=== PATIENT | male | born 1950 | race Caucasian/White ===

== ENCOUNTER 2017-08-01 14:46 | Inpatient (IN) ==
--- NOTE | 2017-08-01 15:02 | Emergency Department Note ---
Disposition Clinical Impression: Acute exacerbation of chronic obstructive airways disease Disposition: Admitted As Inpatient Condition: Good Referrals: Rosie Hilton CNP [Primary Care Provider] - Forms: ED Satisfaction Letter Time of Disposition: 17:24 SOB HPI - General Chief Complaint: ED Shortness of Breath/Dyspnea Stated Complaint: DWIGHT Time Seen by Provider: 08/01/17 14:59 Source: patient Limitations: no limitations Nursing Notes Reviewed: Yes Vital Signs Reviewed: Yes - History of Present Illness Mr. Angulo, a 66-year-old male, presents from home for evaluation of abrupt worsening of dyspnea at 13:00 today. Patient was diagnosed 07/24 with acute exacerbation of COPD, managed as an outpatient with a course of Levaquin and prednisone. He has been compliant and has finished these medications. He does have a history of chronic underlying COPD with home albuterol; no need for home supplemental oxygen. PMH: Pulmonary cancer 40 years ago with left lower lobectomy, colon cancer in the last 5 years with colectomy, COPD, hyperlipidemia, hypertension, CAD status post ACS, pacemaker in place Habits: Current every day smoker ROS: Positive: Dyspnea Negative: Fever, chills, nausea, vomiting, change in chronic cough, chest pains , palpitations, thoracic back pains, abdominal pains, vertigo, weakness - Related Data Home Medications Medication Instructions Recorded Confirmed Albuterol Neb [AccuNeb] 1.25 mg IH Q4H PRN 12/20/15 08/01/17 Metoprolol [Lopressor] 25 mg PO BID 12/20/15 08/01/17 [place]-3/Dha/Epa/Fish Oil [Fish Oil 1 each PO DAILY 12/20/15 08/01/17 1,000 mg Softgel] Pravastatin Sodium [Pravachol] 40 mg PO HS 12/20/15 08/01/17 Acetaminophen [Tylenol] 500 mg PO Q6HR PRN 08/01/17 08/01/17 Allergies Allergy/AdvReac Type Severity Reaction Status Date / Time No Known Allergies Allergy Verified 12/20/15 15:45 All systems ED: reviewed and negative except as stated. Review of Systems: As Per HPI Past Medical History - Past Medical History Medical history: Reports: cancer, COPD, hyperlipidemia, hypertension, myocardial infarction Psychiatric history: Reports: anxiety, depression - Social History Smoking Status: Current every day smoker Smokeless Tobacco Status: No Alcohol use: Reports: rarely Drug use: Reports: none Physical Exam Vital Signs Reviewed General: Patient is alert, oriented, and in respiratory distress-he is using substantial accessory muscles for breathing despite the use of submental oxygen ; pulse ox is 95% HEENT: No facial asymmetry. Head is normocephalic and atraumatic. Oral mucosa moist. Trachea midline. Cardiovascular: Heart regular rate and rhythm without clicks, rubs, gallops, or murmurs. No JVD. PMI nondisplaced. Respiratory: Symmetric chest rise with good respiratory effort. Bilateral breath sounds are clear without wheezing, crackles, or rhonchi. Abdomen: Bowel sounds present normoactive. Abdomen is soft, nondistended, and nontender. No organomegaly noted. Musculoskeletal: Spontaneously moving all extremities. Neuro: GCS 15. Skin: Warm, dry, intact Psych: Patient's affect is appropriate for situation. - General Limitations: no limitations General appearance: alert Course Course Narrative: Patient presents 8 days after diagnosis of acute exacerbation of COPD with appropriate outpatient therapy of prednisone and levofloxacin. He has an acute worsening this afternoon for which he presents. Will provide triple dose of DuoNeb's. If substantial improvement is not noted with nebulizer, will strongly consider BiPAP as patient's work of breathing is very high on intake. Patient did well for triple dose of DuoNeb's. His work of breathing is essentially improved. Will hold on BiPAP at this time. I discussed the patient with the admitting hospitalist, Dr. Ernst, who agreed to accept the patient for continued evaluation and management for acute exacerbation of COPD. Vital Signs Temperature 97.7 F 08/01/17 14:50 Pulse Rate 131 08/01/17 14:50 Respiratory Rate 30 08/01/17 14:50 Blood Pressure 168/92 08/01/17 14:50 O2 Sat by Pulse Oximetry 94 08/01/17 14:50 Temperature 97.7 F 08/01/17 14:50 Pulse Rate 83 08/01/17 16:26 Respiratory Rate 24 08/01/17 16:26 Blood Pressure 136/86 08/01/17 16:26 O2 Sat by Pulse Oximetry 95 08/01/17 16:26 Oxygen Delivery Oxygen Delivery Nasal Cannula Shortness of Breath/Dyspnea - Medical Records Medical records reviewed: Yes I reviewed the patient's medical records. - Lab Data Result diagrams: 08/01/17 15:08/01/17 15:01 Lab Results 08/01/17 08/01/17 08/01/17 Range/Units 15: 15: 15:01 WBC 10.1 (4.3-11.1) K/mcL RBC 5.43 (4.19-5.50) M/mcL Hgb 16.5 (12.9-16.9) g/dL Hct 46.8 (37.5-50.1) % MCV 86.2 (83.0-100.0) fL MCH 30.4 (28.0-33.3) pg MCHC 35.3 (31.6-35.5) g/dL RDW 12.5 (11.5-14.5) % Plt Count 119 L (140-400) K/mcL MPV 11.5 (9.4-12.4) fL Immature Gran % 0.4 (0-4) % Seg Neutrophils % 79.6 % Lymphocytes % 7.7 % Monocytes % 10.1 % Eosinophils % 1.6 % Basophils % 0.6 % Neutrophils # 8.1 (1.6-8.9) K/mcL Lymphocytes # 0.8 (0.6-4.6) K/mcL Monocytes # 1.0 (0.0-1.3) K/mcL Eosinophils # 0.2 (0.0-0.6) K/mcL Basophils # 0.1 (0.0-0.2) K/mcL Immature Plt Fraction 14.1 H (1.1-6.1) % PT (9.4-12.1) Seconds INR APTT (26.0-36.0) Seconds Sodium 132 L (136-145) mEq/L Potassium 4.7 H (3.5-4.5) mEq/L Chloride 98 (98-109) mEq/L Carbon Dioxide 21 (19-29) mEq/L BUN 7 L (8-26) mg/dL Creatinine 0.91 (0.72-1.25) mg/dL Est GFR ( Amer) > 60 (> 60) Est GFR (Non-Af Amer) > 60 (> 60) BUN/Creatinine Ratio 8 (6-26) Glucose 102 H (70-99) mg/dL Calculated Osmolality 272 L (280-300) Lactic Acid 2.4 H (0.5-2.2) mmol/L Calcium 9.1 (8.6-10.8) mg/dL Troponin I (0-0.03) ng/mL B-Natriuretic Peptide (0-100) pg/mL 08/01/17 08/01/17 08/01/17 Range/Units 15:01 15:01 15:01 WBC (4.3-11.1) K/mcL RBC (4.19-5.50) M/mcL Hgb (12.9-16.9) g/dL Hct (37.5-50.1) % MCV (83.0-100.0) fL MCH (28.0-33.3) pg MCHC (31.6-35.5) g/dL RDW (11.5-14.5) % Plt Count (140-400) K/mcL MPV (9.4-12.4) fL Immature Gran % (0-4) % Seg Neutrophils % % Lymphocytes % % Monocytes % % Eosinophils % % Basophils % % Neutrophils # (1.6-8.9) K/mcL Lymphocytes # (0.6-4.6) K/mcL Monocytes # (0.0-1.3) K/mcL Eosinophils # (0.0-0.6) K/mcL Basophils # (0.0-0.2) K/mcL Immature Plt Fraction (1.1-6.1) % PT 13.0 H (9.4-12.1) Seconds INR 1.2 APTT 27.3 (26.0-36.0) Seconds Sodium (136-145) mEq/L Potassium (3.5-4.5) mEq/L Chloride (98-109) mEq/L Carbon Dioxide (19-29) mEq/L BUN (8-26) mg/dL Creatinine (0.72-1.25) mg/dL Est GFR ( Amer) (> 60) Est GFR (Non-Af Amer) (> 60) BUN/Creatinine Ratio (6-26) Glucose (70-99) mg/dL Calculated Osmolality (280-300) Lactic Acid (0.5-2.2) mmol/L Calcium (8.6-10.8) mg/dL Troponin I 0.01 (0-0.03) ng/mL B-Natriuretic Peptide 243 H (0-100) pg/mL - EKG Data EKG attestation: Yes I reviewed and interpreted this EKG. EKG results narrative: EKG gated CT July 2017 at 15:03 interpreted as ventricularly paced. Nonspecific ST-T changes. Compared to previous dated 12/21/2015 also ventricularly paced. Attestation Statement - Attestation Attestation: I examined this patient and my medical decision-making was reviewed with the Resident Physician. I agree with the documented findings, disposition and treatment plan as described except to the extent set forth below. [id number] time provided Patient arrives complaining of dyspnea. He has a history of COPD. He is non- oxygen dependent. Active smoker. He is tachypneic and dyspneic at the time of my exam
[2017-08-01] MEDS ORDERED: Ipratropium/Albuterol Neb 3 ML IH ONE (15:08)
[2017-08-01] MEDS ORDERED: methylPREDNISolone 125 MG/2 ML VIAL IVP ONE (15:08)
[2017-08-01 15:09] LABS: Basophils # 0.1 K/mcL (0.0-0.2); Basophils % 0.6 %; Eosinophils # 0.2 K/mcL (0.0-0.6); Eosinophils % 1.6 %; Hematocrit 46.8 % (37.5-50.1); Hemoglobin 16.5 g/dL (12.9-16.9); Immature Granulocytes % 0.4 % (0-4); Immature Platelets 14.1 % (1.1-6.1); Lymphocytes # 0.8 K/mcL (0.6-4.6); Lymphocytes % 7.7 %; Mean Corpuscular HGB Conc 35.3 g/dL (31.6-35.5); Mean Corpuscular Hemoglobin 30.4 pg (28.0-33.3); Mean Corpuscular Volume 86.2 fL (83.0-100.0); Mean Platelet Volume 11.5 fL (9.4-12.4); Monocytes % 10.1 %; Neutrophils # 8.1 K/mcL (1.6-8.9); Platelet Count 119 K/mcL (140-400); Red Blood Count 5.43 M/mcL (4.19-5.50); Red Cell Distribution Width 12.5 % (11.5-14.5); Segmented Neutrophils % 79.6 %
[2017-08-01 15:14] LABS: INR 1.2
[2017-08-01 15:17] LABS: Activated Partial Thrombo Time 27.3 Seconds (26.0-36.0)
[2017-08-01 15:20] LABS: BUN/Creatinine Ratio 8 (6-26); Blood Urea Nitrogen 7 mg/dL (8-26); Calcium 9.1 mg/dL (8.6-10.8); Carbon Dioxide 21 mEq/L (19-29); Chloride 98 mEq/L (98-109); Glucose 102 mg/dL (70-99); Osmolality,Calculated 272 (280-300); Sodium 132 mEq/L (136-145); eGFR For African Americans > 60 (> 60); eGFR For Non-African Americans > 60 (> 60)
[2017-08-01 15:21] LABS: Potassium 4.7 mEq/L (3.5-4.5)
[2017-08-01] MEDS ORDERED: Acetaminophen 325 MG TABLET PO ONE (17:53)
[2017-08-01] MEDS ORDERED: 0.9 % Sodium Chloride 1,000 ML IVC ONE (20:13)
[2017-08-01] MEDS ORDERED: Naloxone 0.4 MG/ML INJ IVP PRN (20:49)
[2017-08-01] MEDS ORDERED: *HR* Morphine 2 MG/ML SYRINGE IVP PRN (20:49)
--- NOTE | 2017-08-01 20:49 | Internal Med History&Physical ---
Date of Encounter: 08/01/17 Time of Encounter: 22:46 Assessment and Plan (1) Pneumonia Current visit: Yes Status: Acute COntinue Levaquin IV Send sputum culture Urine Strep/legionella Ag Continue duonebs q4h Continue O2 supplementation Continue prednisone po Follow blood and sputum culture Qualifiers: Pneumonia type: due to unspecified organism Laterality: left Lung location: unspecified part of lung Qualified Code(s): J18.9 - Pneumonia, unspecified organism (2) Lactic acid acidosis Current visit: Yes Status: Acute Presented with lactate of 2.3, recheck 3.8 GIven 1L bolus Maintenance fluid at 75cc/hr LActic acidosis possibly due to hypoxia and work of breathing on arrival, as well as multiple nebs Continue to monitor (3) Hypoxia Current visit: Yes Status: Acute Patient denies being on home O2 Tachycardic, tachypneic and hypoxic on arrival Possibly secondary to pneumonia Obtain D-dimer, may require CTA if positive Continue O2 by nasal cannula (4) Acute exacerbation of chronic obstructive airways disease Current visit: Yes Status: Acute As in pneumonia (5) CAD (coronary artery disease) Current visit: Yes Status: Chronic Continue home meds No chest pain Qualifiers: Coronary Disease-Associated Artery/Lesion type: nikolai artery [place] vs. transplanted heart: nikolai heart Associated angina: without angina Qualified Code(s): I25.10 - Atherosclerotic heart disease of nikolai coronary artery without angina pectoris (6) History of cancer Current visit: Yes Status: Chronic Follow with [facility] as outpatient (7) Tobacco use Current visit: Yes Status: Chronic Cessation counselling done, declined need for NRT (8) Hypertension Current visit: Yes Status: Chronic Controlled, continue home meds Qualifiers: Hypertension type: essential hypertension Qualified Code(s): I10 - Essential (primary) hypertension (9) Hyponatremia Current visit: Yes Status: Chronic Chronic, stable. Internal Medicine - H&P: HPI Chief complaint: Shortness of breath Admitted From: Home Plans for Post Hospital Care: Home History of present illness: Mr. Angulo is a 66 year old male Seen and evaluated at bedside Presented with shortness of breath, which started suddenly during this morning, he states he has been having progressively worsening shortness of breath not responding to his home inhalers. He had been to his PCP and treated for COPDE last week with prednisone and po antibiotics with no significant improvement. He denies fever or chills, cough is productive of clear sputum which is his baseline, he has no sick contacts and has not had a recent travel. He denies chest pain, leg swelling, abdominal or symptoms, no neurologis symptoms. He has a PMH of Lung CA s/p Left lobectomy several years ago, CAD, HTN, Anxiety/ Dperession, HLD He continues to smoke ROS is not contibutory At presentation to the ER< he was tachypneic, hypoxic and tachycardic, with HR being 108-131. He reported some improvement after 3 rounds of nebs and solumedrol. Work up revealed possible early pneumonia on CXR, lactic acidosis, Chronic hyponatremia, Chem and CBC otherwise at baseline Past Med Surg Social Fam HX - Past Medical History Medical history: cancer, COPD, hyperlipidemia, hypertension, myocardial infarction Psychiatric history: anxiety, depression - Social History Smoking Status: Current every day smoker Packs per day: 0.5 Smokeless Tobacco Status: No Alcohol use: rarely Drug use: none - Family History Mother Hx Family Cancer: Yes (Breast) Internal Medicine - H&P: Meds Albuterol Neb [AccuNeb] 1.25 mg IH Q4H PRN 12/20/15 [History] Metoprolol [Lopressor] 25 mg PO BID 12/20/15 [History] [place]-3/Dha/Epa/Fish Oil [Fish Oil 1,000 mg Softgel] 1 each PO DAILY 12/20/15 [ History] Pravastatin Sodium [Pravachol] 40 mg PO HS 12/20/15 [History] Acetaminophen [Tylenol] 500 mg PO Q6HR PRN 08/01/17 [History] 3 Allergy/AdvReac Type Severity Reaction Status Date / Time No Known Allergies Allergy Verified 12/20/15 15:45 All Systems PM: A 10-system review of systems was performed and is negative for pertinent findings except as documented above in the HPI. - Constitutional Constitutional: no chills, no fever(s), no night sweats - EENT Eyes: no change in vision, no discharge, no pain, no photophobia Ears: no ear discharge, no ear pain, no tinnitus Nose, mouth and throat: no dysphagia, no nasal discharge, no neck pain, no sore throat - Cardiovascular Cardiovascular ROS IM: as per HPI - Respiratory Respiratory: as per HPI - Gastrointestinal Gastrointestinal: as per HPI - Musculoskeletal Musculoskeletal ROS IM: no numbness, no tingling - Integumentary Integumentary IM: no rash, no unusual bruising - Neurological Neurological ROS: as per HPI - Constitutional Vitals: Temp Pulse Resp BP Pulse Ox 97.9 F 108 20 112/59 95 08/01/17 19:21 08/01/17 19:21 08/01/17 19:21 08/01/17 19:21 08/01/17 19:21 General appearance: Present: mild distress, A&O X 3, pleasant - Head Head exam: Present: atraumatic, normocephalic - Eye Eye exam: Present: PERRL, conjuntiva pink, sclera anicteric Pupils: Present: PERRL - Neck Neck exam general surgery: Present: supple, trachea midline. Absent: lymphadenopathy - Respiratory Respiratory exam: Present: decreased breath sounds, prolonged expiratory phase, wheezes - Cardiovascular Cardiovascular exam: Present: RRR, +S1, +S2. Absent: diastolic murmur, gallop, rubs, systolic murmur - GI/Abdominal GI/Abdominal exam: Present: normal bowel sounds, soft, no peritoneal signs. Absent: distended, tenderness - Extremities Exam Extremities exam: Present: warm, radial pulses palpable and symmetrical. Absent : calf tenderness, cyanotic, pedal edema - Neurological Exam Neurological exam: Present: alert, CN II-XII intact, oriented X3, no focal deficits. Absent: pronater drift, facial droop, speech deficit - Skin Skin exam: Present: dry, intact Internal Med - H&P Results - Labs CBC & Chem 7: 08/01/17 15:01 08/01/17 15:01
[2017-08-01] MEDS: Levofloxacin 750 MG/150 ML 750 MG/150 ML BAG IVPB SCH (21:45)
[2017-08-01] MEDS: *HR* Heparin 5,000 UNIT/ML VIAL SQ SCH (21:46)
[2017-08-01] MEDS: Ipratropium/Albuterol Neb 3 ML IH SCH (22:36)
[2017-08-01] MEDS: 0.9 % Sodium Chloride 1,000 ML IVC SCH (23:29)
[2017-08-02 01:11] LABS: Hematocrit 38.5 % (37.5-50.1); Immature Granulocytes % 0.8 % (0-4); Lymphocytes # 0.3 K/mcL (0.6-4.6); Mean Corpuscular HGB Conc 35.1 g/dL (31.6-35.5); Mean Corpuscular Hemoglobin 30.9 pg (28.0-33.3); Mean Corpuscular Volume 88.1 fL (83.0-100.0); Mean Platelet Volume 12.3 fL (9.4-12.4); Monocytes # 0.1 K/mcL (0.0-1.3); Neutrophils # 4.7 K/mcL (1.6-8.9); Platelet Count 100 K/mcL (140-400); Red Blood Count 4.37 M/mcL (4.19-5.50); Red Cell Distribution Width 12.4 % (11.5-14.5); Segmented Neutrophils % 93.2 %
[2017-08-02 01:13] LABS: Hemoglobin 13.5 g/dL (12.9-16.9)
[2017-08-02 01:16] LABS: BUN/Creatinine Ratio 13 (6-26); Blood Urea Nitrogen 12 mg/dL (8-26); Calcium 8.2 mg/dL (8.6-10.8); Carbon Dioxide 21 mEq/L (19-29); Chloride 100 mEq/L (98-109); Glucose 248 mg/dL (70-99); Osmolality,Calculated 276 (280-300); Potassium 4.2 mEq/L (3.5-4.5); Sodium 129 mEq/L (136-145); eGFR For African Americans > 60 (> 60); eGFR For Non-African Americans > 60 (> 60)
[2017-08-02] MEDS: Ipratropium/Albuterol Neb 3 ML IH SCH ×6 (04:02→23:20)
[2017-08-02] MEDS: *HR* Heparin 5,000 UNIT/ML VIAL SQ SCH ×3 (05:43→21:11)
--- NOTE | 2017-08-02 07:00 | Electrocardiograph Report ---
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
[2017-08-02] MEDS: 0.9 % Sodium Chloride 1,000 ML IVC SCH (08:32)
[2017-08-02] MEDS ORDERED: predniSONE 20 MG TABLET PO SCH (09:00)
[2017-08-02 13:45] LABS: Adenovirus Not Detected (Not Detect); Bordetella Pertussis Not Detected (Not Detect); Chlamydophila pneumoniae Not Detected (Not Detect); Coronavirus 229E Not Detected (Not Detect); Coronavirus HKU1 Not Detected (Not Detect); Coronavirus NL63 Not Detected (Not Detect); Coronavirus OC43 Not Detected (Not Detect); Human Metapneumovirus Not Detected (Not Detect); Human Rhinovirus/Enterovirus ***DETECTED*** (Not Detect); Influenza A Subtype 2009 H1 Not Detected (Not Detect); Influenza A Untypeable Not Detected (Not Detect); Influenza B Not Detected (Not Detect); Mycoplasma pneumoniae Not Detected (Not Detect); Parainfluenza Virus 1 Not Detected (Not Detect); Parainfluenza Virus 2 Not Detected (Not Detect); Parainfluenza Virus 3 Not Detected (Not Detect); Parainfluenza Virus 4 Not Detected (Not Detect); Respiratory Syncytial Virus Not Detected (Not Detect)
[2017-08-02] MEDS: *HR* OxyCODONE Immed Rel 5 MG TABLET PO PRN ×2 (13:48→19:42)
--- NOTE | 2017-08-02 16:08 | Internal Med Progress Note ---
Date of Encounter: 08/02/17 Time of Encounter: 16:06 - Assessment and plan (1) Community acquired bacterial pneumonia Current Visit: Yes Status: Acute Assessment and plan: Elier Angulo is a 66 normal male with past medical history COPD, hypertension and history of lung and colon cancer cancer who presented to [facility] on 08/01/2017 with complaints of shortness of breath. He was found to have early onset pneumonia and was hypoxic. He was admitted for further workup and treatment. 1. Community-acquired pneumonia: presented with SOB. CXR with increased opacity to left lung worrisome for pneumonia. Continue IV Levaquin. Urinary antigens, sputum culture, respiratory PCR pending 2. Hypoxia: On arrival. Requiring oxygen. Does not wear oxygen at home. D- dimer elevated, chest CTA pending. Continue treating pneumonia as noted above. Wean O2 as able. Home O2 assessment prior to discharge. 3. Elevated lactic acid: lactic acid peaked at 3.8 and trended down. Treated with IV fluids. WBC 5K, afebrile. Suspect multifactorial with pneumonia and hypoxia. Continue treating underlying causes. 4. Hyponatremia: hx chronic hyponatremia with baseline Na ~130. Na 129; neurologically intact. Continue IV fluids. Monitor repeat CMP. 5. 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 6. History of cancer: Lung cancer 40 years ago status post resection. Also hx colon cancer 2006. 6. DVT prophylaxis: heparin. (2) Hyponatremia Current Visit: Yes Status: Chronic (3) Hypertension Current Visit: Yes Status: Chronic Qualifiers: Hypertension type: essential hypertension Qualified Code(s): I10 - Essential (primary) hypertension - Subjective Interval history: Seen and examined at bedside. Patient is new to me, information obtained from chart review and patient report. Patient says he feels significantly better from presentation. Still shortness of breath and with productive cough but overall improved. No chest pain. - Constitutional Vitals: Temp Pulse Resp BP Pulse Ox 98.1 F 103 18 121/67 91 08/02/17 15:13 08/02/17 15:13 08/02/17 15:13 08/02/17 15:13 08/02/17 15:13 General appearance: Present: A&O X 3, pleasant - Head Head exam: Present: atraumatic, normocephalic - Eye Eye exam: Present: PERRL, conjuntiva pink, sclera anicteric Pupils: Present: PERRL - Neck Neck exam general surgery: Present: supple, trachea midline. Absent: lymphadenopathy - Respiratory Respiratory exam: Present: wheezes. Absent: accessory muscle use, rales, rhonchi - Cardiovascular Cardiovascular exam: Present: RRR, +S1, +S2. Absent: diastolic murmur, gallop, rubs, systolic murmur - GI/Abdominal GI/Abdominal exam: Present: normal bowel sounds, soft, no peritoneal signs. Absent: distended, tenderness - Extremities Exam Extremities exam: Present: warm, radial pulses palpable and symmetrical. Absent : calf tenderness, cyanotic, pedal edema - Neurological Exam Neurological exam: Present: CN II-XII intact, oriented X3, no focal deficits. Absent: pronater drift, facial droop, speech deficit - Skin Skin exam: Present: dry, intact Internal Medicine: Result - Labs CBC & Chem 7: 08/02/17 00:48 08/02/17 00:48 Labs: Short CBC 08/02/17 Range/Units 00:48 WBC 5.0 D (4.3-11.1) K/mcL Hgb 13.5 D (12.9-16.9) g/dL Hct 38.5 (37.5-50.1) % Plt Count 100 L (140-400) K/mcL Neutrophils # 4.7 (1.6-8.9) K/mcL BMP 08/02/17 00:48 Sodium 129 L Potassium 4.2 Chloride 100 Carbon Dioxide 21 BUN 12 Creatinine 0.94 Glucose 248 H Calcium 8.2 L - ABG Interpretation ABG results: PT/INR, D-dimer PT 13.0 Seconds (9.4-12.1) H 08/01/17 15:01 D-Dimer 612 ng/mLFEU (0-500) H 08/02/17 00:48 Consult Discharge Plan - Plan Referrals: Rosie Hilton CNP [Primary Care Provider] -
[2017-08-02] MEDS: Levofloxacin 750 MG/150 ML 750 MG/150 ML BAG IVPB SCH (21:11)
[2017-08-03] MEDS: 0.9 % Sodium Chloride 1,000 ML IVC SCH (04:07)
[2017-08-03] MEDS: Ipratropium/Albuterol Neb 3 ML IH SCH ×6 (04:11→23:25)
[2017-08-03 04:37] LABS: Hematocrit 37.7 % (37.5-50.1); Mean Corpuscular Volume 89.5 fL (83.0-100.0); Mean Platelet Volume 12.2 fL (9.4-12.4); Red Blood Count 4.21 M/mcL (4.19-5.50)
[2017-08-03 04:39] LABS: Hemoglobin 12.9 g/dL (12.9-16.9); Immature Platelets 14.1 % (1.1-6.1); Mean Corpuscular HGB Conc 34.2 g/dL (31.6-35.5); Mean Corpuscular Hemoglobin 30.6 pg (28.0-33.3); Red Cell Distribution Width 12.8 % (11.5-14.5)
[2017-08-03 04:55] LABS: BUN/Creatinine Ratio 15 (6-26); Blood Urea Nitrogen 11 mg/dL (8-26); Calcium 8.1 mg/dL (8.6-10.8); Carbon Dioxide 23 mEq/L (19-29); Chloride 106 mEq/L (98-109); Glucose 92 mg/dL (70-99); Osmolality,Calculated 277 (280-300); Potassium 4.3 mEq/L (3.5-4.5); eGFR For African Americans > 60 (> 60); eGFR For Non-African Americans > 60 (> 60)
[2017-08-03 04:56] LABS: Sodium 134 mEq/L (136-145)
[2017-08-03] MEDS: *HR* Heparin 5,000 UNIT/ML VIAL SQ SCH ×3 (05:30→21:27)
--- NOTE | 2017-08-03 08:18 | Internal Med Progress Note ---
Date of Encounter: 08/03/17 Time of Encounter: 08:15 - Assessment and plan (1) Community acquired bacterial pneumonia Current Visit: Yes Status: Acute Assessment and plan: Elier Angulo is a 66 normal male with past medical history COPD, hypertension and history of lung and colon cancer cancer who presented to [facility] on 08/01/2017 with complaints of shortness of breath. He was found to have early onset pneumonia and was hypoxic. He was admitted for further workup and treatment. 1. Community-acquired pneumonia: presented with worsening SOB. CXR with increased opacity to left lung concerning for early pneumonia. IV Levaquin started on admission. Urinary antigens negative. Resp PCR with entero/rhino virus. Still with dyspnea and wheezing on 08/03 exam; change ATB to Ceftriaxone and azithromycin for anti-inflammatory properties 2. Acute COPD exacerbation: current smoker. Presented with with worsening SOB and wheezing. Initially treated with IV Levaquin and oral steroids. ATB changed to ceftriaxone and azithromycin for anti-inflammatory properties and IV steroids due to lack of clinical/subjective improvement. Cont ATB, IV steroids, duonebs, mucinex 3. Hypoxia: On arrival. Requiring oxygen. Does not wear oxygen at home. D- dimer elevated, chest CTA negative for pulmonary embolism. Secondary to acute COPD exacerbation and pneumonia. Continue treating underlying causes. Wean O2 as able. Home O2 assessment prior to discharge. 4. Elevated lactic acid: lactic acid peaked at 3.8 and trended down. WBC 5K, afebrile. Treated with IV fluids. Multifactorial with pneumonia and hypoxia. 5. Hyponatremia: hx chronic hyponatremia with baseline Na ~130. Neurologically intact. Intermittently monitor 6. 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 7. History of cancer: Lung cancer 40 years ago status post resection. Also hx colon cancer 2006. 8. DVT prophylaxis: heparin. (2) Hyponatremia Current Visit: Yes Status: Chronic (3) Hypertension Current Visit: Yes Status: Chronic Qualifiers: Hypertension type: essential hypertension Qualified Code(s): I10 - Essential (primary) hypertension - Subjective Interval history: Seen and examined at bedside. Says he feels a little better. Still with shortness of breath thats worse with exertion, nonproductive cough and wheezing. Does not feel he is ready to go home today. No chest pain. - Constitutional Vitals: Temp Pulse Resp BP Pulse Ox 97.7 F 92 16 93/72 94 08/03/17 07:08 08/03/17 07:08 08/03/17 07:35 08/03/17 07:08 08/03/17 07:35 General appearance: Present: mild distress, A&O X 3, pleasant - Head Head exam: Present: atraumatic, normocephalic - Eye Eye exam: Present: PERRL, conjuntiva pink, sclera anicteric Pupils: Present: PERRL - Neck Neck exam general surgery: Present: supple, trachea midline. Absent: lymphadenopathy - Respiratory Respiratory exam: Present: wheezes. Absent: accessory muscle use, rales, rhonchi Additional comments: Mildly dyspenic - Cardiovascular Cardiovascular exam: Present: RRR, +S1, +S2, tachycardia. Absent: diastolic murmur, gallop, rubs, systolic murmur - GI/Abdominal GI/Abdominal exam: Present: normal bowel sounds, soft, no peritoneal signs. Absent: distended, tenderness - Extremities Exam Extremities exam: Present: warm, radial pulses palpable and symmetrical. Absent : calf tenderness, cyanotic, pedal edema - Neurological Exam Neurological exam: Present: CN II-XII intact, oriented X3, no focal deficits. Absent: pronater drift, facial droop, speech deficit - Skin Skin exam: Present: dry, intact Internal Medicine: Result - Labs CBC & Chem 7: 08/03/17 04:25 08/03/17 04:25 Labs: Short CBC 08/03/17 Range/Units 04:25 WBC 8.3 D (4.3-11.1) K/mcL Hgb 12.9 (12.9-16.9) g/dL Hct 37.7 (37.5-50.1) % Plt Count 81 L (140-400) K/mcL BMP 08/03/17 04:25 Sodium 134 L Potassium 4.3 Chloride 106 Carbon Dioxide 23 BUN 11 Creatinine 0.75 Glucose 92 Calcium 8.1 L - ABG Interpretation ABG results: PT/INR, D-dimer PT 13.0 Seconds (9.4-12.1) H 08/01/17 15:01 D-Dimer 612 ng/mLFEU (0-500) H 08/02/17 00:48 Consult Discharge Plan - Plan Referrals: Rosie Hilton SAVANA [Primary Care Provider] -
[2017-08-03] MEDS: GuaiFENesin/Pseudophedrine TABLET PO SCH ×2 (09:26→21:26)
[2017-08-03] MEDS: cefTRIAXone 1,000 MG in Water for inj. (sterile) 10 ML IVP SCH (09:26)
[2017-08-03] MEDS: Azithromycin 500 MG in D5% in Water 250 ML IVPB SCH (10:30)
[2017-08-03] MEDS: MethylPREDNISolone 40 MG/ML VIAL IVP SCH ×2 (13:43→17:21)
[2017-08-04] MEDS: MethylPREDNISolone 40 MG/ML VIAL IVP SCH ×2 (00:11→05:57)
[2017-08-04 03:33] LABS: Red Cell Distribution Width 12.6 % (11.5-14.5)
[2017-08-04 03:35] LABS: Hematocrit 39.6 % (37.5-50.1); Hemoglobin 13.5 g/dL (12.9-16.9); Immature Platelets 17.8 % (1.1-6.1); Mean Corpuscular HGB Conc 34.1 g/dL (31.6-35.5); Mean Corpuscular Hemoglobin 30.4 pg (28.0-33.3); Mean Corpuscular Volume 89.2 fL (83.0-100.0); Mean Platelet Volume 13.2 fL (9.4-12.4); Red Blood Count 4.44 M/mcL (4.19-5.50)
[2017-08-04 04:00] LABS: BUN/Creatinine Ratio 13 (6-26); Blood Urea Nitrogen 10 mg/dL (8-26); Calcium 8.6 mg/dL (8.6-10.8); Carbon Dioxide 25 mEq/L (19-29); Chloride 101 mEq/L (98-109); Glucose 133 mg/dL (70-99); Osmolality,Calculated 275 (280-300); Potassium 4.4 mEq/L (3.5-4.5); Sodium 132 mEq/L (136-145); eGFR For African Americans > 60 (> 60); eGFR For Non-African Americans > 60 (> 60)
[2017-08-04] MEDS: Ipratropium/Albuterol Neb 3 ML IH SCH ×3 (04:29→11:13)
[2017-08-04] MEDS: *HR* Heparin 5,000 UNIT/ML VIAL SQ SCH (05:57)
[2017-08-04 07:50] VITALS: BP 116/72
[2017-08-04] MEDS: GuaiFENesin/Pseudophedrine TABLET PO SCH (08:49)
[2017-08-04] MEDS: Azithromycin 500 MG in D5% in Water 250 ML IVPB SCH (08:49)
[2017-08-04] MEDS: cefTRIAXone 1,000 MG in Water for inj. (sterile) 10 ML IVP SCH (08:50)
--- NOTE | 2017-08-04 10:32 | Discharge Summary ---
Date of Encounter: 08/04/17 Time of Encounter: 10:32 - Discharge Diagnosis (1) Community acquired bacterial pneumonia Priority: Primary Status: Acute Comments: Elier Angulo is a 66 normal male with past medical history COPD, hypertension and history of lung and colon cancer cancer who presented to [facility] on 08/01/2017 with complaints of shortness of breath. He was found to have early onset pneumonia and was hypoxic. He was admitted for further workup and treatment. 1. Community-acquired pneumonia: presented with worsening SOB. CXR with increased opacity to left lung concerning for early pneumonia. IV Levaquin started on admission. Resp PCR with entero/rhino virus. Urine Ags negative. Clinically and subjectively improved at discharge. Discharge on Levaquin to complete total course of 7 days 2. Acute COPD exacerbation: current smoker. Presented with with worsening SOB and wheezing. Sx's significantly improved with IV Levaquin and oral steroids. Discharge home on Levaquin and steroid taper. Recommend follow-up with PCP within one week. 3. Hypoxia: On arrival. Requiring oxygen. Does not wear oxygen at home. D- dimer elevated, chest CTA negative for pulmonary embolism. Secondary to acute COPD exacerbation and pneumonia. Hypoxia resolved with treating underlying causes. Adequately saturating on room air at discharge 4. Hyponatremia: hx chronic hyponatremia with baseline Na ~130. Neurologically intact. Na 132 at discharge. Commend repeat CMP within 1 week with PCP. 5. History of Malignancy: Hx lung cancer 40 years ago; status post resection. Colon cancer 2006. (2) Acute exacerbation of chronic obstructive airways disease Priority: Primary Status: Acute (3) Acute respiratory failure with hypoxia Priority: Primary Status: Resolved (4) Hyponatremia Priority: Primary Status: Chronic (5) Hypertension Priority: Primary Status: Chronic Qualifiers: Hypertension type: essential hypertension Qualified Code(s): I10 - Essential (primary) hypertension - Discharge Medications Prescriptions: levoFLOXacin [Levaquin] 750 mg PO DAILY #7 tablet predniSONE [PredniSONE] 10 mg PO DAILY #30 tablet Home Medications: Albuterol Neb [AccuNeb] 1.25 mg IH Q4H PRN 12/20/15 [History] Metoprolol [Lopressor] 25 mg PO BID 12/20/15 [History] [place]-3/Dha/Epa/Fish Oil [Fish Oil 1,000 mg Softgel] 1 each PO DAILY 12/20/15 [ History] Pravastatin Sodium [Pravachol] 40 mg PO HS 12/20/15 [History] Acetaminophen [Tylenol] 500 mg PO Q6HR PRN 08/01/17 [History] levoFLOXacin [Levaquin] 750 mg PO DAILY #7 tablet 08/04/17 [Rx] predniSONE [PredniSONE] 10 mg PO DAILY #30 tablet 08/04/17 [Rx] Allergies/Adverse Reactions: 3 Allergy/AdvReac Type Severity Reaction Status Date / Time No Known Allergies Allergy Verified 12/20/15 15:45 Date of admission: 08/02/17 16:34 Primary care physician: Rosie Hilton CNP Discharging clinician: Josie Sun Anticipated date of discharge: 08/04/17 - Patient Status Disposition: Home, Self-Care Condition: Good Functional capacity at discharge: independent ambulation Overall status at discharge: patient is back to baseline - Discharge Instructions Instructions: Community-acquired Pneumonia (DC), Chronic Obstructive Pulmonary Disease (DC), Cigarette Smoking and Your Health (GEN), How to Stop Smoking (DC) , Levofloxacin (By mouth), Prednisone (By mouth) Follow Up With: Rosie Hilton CNP [Primary Care Provider] - Additional Instructions: Least call your PCP within 24 hours for the next business day to schedule follow -up appointment. - Diet and Activity Activity: increase activity as tolerated Diet: advance to your usual diet Interval History: Seen and examined at bedside. Patient is significantly improved. Says he still has some shortness of breath but at baseline. No chest pain, no fever or chills. Says cough is productive now. He feels much better and would like to discharge home. We discussed smoking cessation and he says he only smokes a few cigarettes a day. Strongly encouraged cessation. He does not have insurance. Provided coupons through [facility] for Levaquin and prednisone. Hospital course: See assessment and plan for hospital course - Time Spent with Patient Total time spent providing and/or coordinating discharge services: Greater than 30 minutes (36 minutes spent on discharge) - Constitutional Vitals: Temp Pulse Resp BP Pulse Ox 97.6 F 55 15 116/72 92 08/04/17 07:49 08/04/17 07:49 08/04/17 07:49 08/04/17 07:49 08/04/17 09:02 General appearance: Present: A&O X 3, pleasant - Head Head exam: Present: atraumatic, normocephalic - Eye Eye exam: Present: PERRL, conjuntiva pink, sclera anicteric Pupils: Present: PERRL - Neck Neck exam general surgery: Present: supple, trachea midline. Absent: lymphadenopathy - Respiratory Respiratory exam: Present: wheezes. Absent: accessory muscle use, rales, rhonchi Additional comments: Diminished with scant wheezing. Significantly improved from yesterday's exam. - Cardiovascular Cardiovascular exam: Present: RRR, +S1, +S2. Absent: diastolic murmur, gallop, rubs, systolic murmur - GI/Abdominal GI/Abdominal exam: Present: normal bowel sounds, soft, no peritoneal signs. Absent: distended, tenderness - Extremities Exam Extremities exam: Present: warm, radial pulses palpable and symmetrical. Absent : calf tenderness, cyanotic, pedal edema - Neurological Exam Neurological exam: Present: CN II-XII intact, oriented X3, no focal deficits. Absent: pronater drift, facial droop, speech deficit - Skin Skin exam: Present: dry, intact
== END 2017-08-04 11:43 | disposition home or self-care (01) | DRG 190 ==
LOC: EMEROO 14:46 → 3BNU 14:46
PROVIDERS: ADMIT Registered Nurse; ATTEND Registered Nurse

== ENCOUNTER 2017-10-15 02:13 | Inpatient (IN) ==
[2017-10-15] MEDS ORDERED: Naloxone 0.4 MG/ML INJ IVP PRN (04:54)
[2017-10-15] MEDS ORDERED: Lacri-Lube 3.5 GM TUBE BOTH EYES PRN (04:58)
[2017-10-15] MEDS ORDERED: Dextrose Gel 15 GM/37.5 ML TUBE PO PRN ×2 (05:03)
[2017-10-15] MEDS ORDERED: *HR* Dextrose 50 % in Water (Syg) 50 ML SYRINGE IVP PRN (05:03)
[2017-10-15] MEDS ORDERED: D5% in Water 1,000 ML IVC PRN (05:03)
--- NOTE | 2017-10-15 05:08 | Internal Med History&Physical ---
Date of Encounter: 10/15/17 Time of Encounter: 05:08 Assessment and Plan (1) Sepsis Current visit: Yes Status: Acute IVF IV antibiotics with cefepime, vanco blood cx sent from [facility] ED. Will repeat set here Qualifiers: Sepsis type: sepsis due to unspecified organism Qualified Code(s): A41.9 - Sepsis, unspecified organism (2) Acute respiratory failure Current visit: No Status: Acute 2/2 COPD and possible PNA - check CXR Qualifiers: Respiratory failure complication: hypoxia Qualified Code(s): J96.01 - Acute respiratory failure with hypoxia (3) Acute exacerbation of chronic obstructive airways disease Current visit: No Status: Acute Duonebs IV steroids send RVP (4) Pneumonia Current visit: No Status: Acute possible PNA ??, check CXR send serologies IV antibiotics above Qualifiers: Pneumonia type: due to unspecified organism Laterality: left Lung location: unspecified part of lung Qualified Code(s): J18.9 - Pneumonia, unspecified organism (5) CAD (coronary artery disease) Current visit: No Status: Chronic conservative management for now Qualifiers: Coronary Disease-Associated Artery/Lesion type: [place] artery [place] vs. transplanted heart: [place] heart Associated angina: without angina Qualified Code(s): I25.10 - Atherosclerotic heart disease of [place] coronary artery without angina pectoris Internal Medicine - H&P: HPI Chief complaint: SOB History of present illness: Mr. Angulo is a 66 year old male who is admitted from [facility] to [facility] for sepsis , acute respiratory failure 2/2 COPD flare and possible PNA. He was reported to experience worsening SOB at home and had been giving himself breathing treatment at home. EMS was called to transport him to [facility]. While on route, he experienced worsening distress reported decreased responsiveness and had to be bagged. There were reports of 'seizure like activities' where he received ativan. He was breathing agonally in the ED and was intubated. He received zosyn, vanco, steroids, bolus while at [facility] prior to transport here. EKG reviewed personally with rate 107 - V-paced In regards to his PMH, he has lung cancer s/p LLL lobectomy, Colon ca s/p resection, CAD/NM hx, HTN, COPD. Past Med Surg Social Fam HX - Past Medical History Medical history: cancer, COPD, hyperlipidemia, hypertension, myocardial infarction Psychiatric history: anxiety, depression - Past Surgical History Surgical History: other (lung, colon surgery) - Social History Smoking Status: Current every day smoker Smokeless Tobacco Status: No Alcohol use: rarely Drug use: none - Family History Mother Hx Family Cancer: Yes (Breast) Internal Medicine - H&P: Meds Albuterol Neb [AccuNeb] 1.25 mg IH Q4H PRN 12/20/15 [History] Metoprolol [Lopressor] 25 mg PO BID 12/20/15 [History] [place]-3/Dha/Epa/Fish Oil [Fish Oil 1,000 mg Softgel] 1 each PO DAILY 12/20/15 [ History] Pravastatin Sodium [Pravachol] 40 mg PO HS 12/20/15 [History] Acetaminophen [Tylenol] 500 mg PO Q6HR PRN 08/01/17 [History] levoFLOXacin [Levaquin] 750 mg PO DAILY #7 tablet 08/04/17 [Rx] predniSONE [PredniSONE] 10 mg PO DAILY #30 tablet 08/04/17 [Rx] 3 Allergy/AdvReac Type Severity Reaction Status Date / Time No Known Allergies Allergy Verified 12/20/15 15:45 All Systems PM: A 10-system review of systems was performed and is negative for pertinent findings except as documented above in the HPI. Review of systems: unable to obtain due to intubated, sedated state - Constitutional Vitals: Temp Pulse Resp BP Pulse Ox 95.8 F L 80 16 101/63 97 10/15/17 04:30 10/15/17 05:02 10/15/17 05:02 10/15/17 05:02 10/15/17 05:02 Exam: General - Intubated sedated Psych - unable to assess Eyes - NICOLE. Eye lids intact. No scleral icterus Neuro - Intubated, sedated Heart - Sinus. RRR. S1 and S2 present. No added HS/murmurs appreciated. No elevated JVD appreciated. Lung - Coarse ventilator BS. No crackles. No wheeze GI - Soft, non-tender. No hepatosplenomegaly/ascites. BS+ - No CVA/suprapubic tenderness or palpable bladder distension Skin - Intact. No rash/petechiae/ecchymosis. Warm extremities
[2017-10-15 05:41] LABS: ABG Base Excess -3 mEq/L (-2 to 3); ABG HCO3 24 mEq/L (21-27); ABG Oxygen Saturation 97 % (95-98); ABG PCO2 50 mmHg (35-45); ABG PH 7.29 pH Units (7.32-7.45); ABG PO2 106 mmHg (85-104); ABG TCO2 26 mEq/L (20-26); Blood Gas Modality ASSIST CONTROL; Blood Gas PEEP 5 cm H2O; Blood Gas Respiration Rate 14; Blood Gas VT 450 cc
[2017-10-15 05:42] LABS: Basophils % 0.3 %; Eosinophils % 0.3 %; Hemoglobin 13.8 g/dL (12.9-16.9); Immature Granulocytes % 0.8 % (0-4); Lymphocytes # 0.3 K/mcL (0.6-4.6); Mean Corpuscular HGB Conc 34.5 g/dL (31.6-35.5); Mean Corpuscular Hemoglobin 30.8 pg (28.0-33.3); Mean Corpuscular Volume 89.3 fL (83.0-100.0); Mean Platelet Volume 11.8 fL (9.4-12.4); Monocytes # 0.1 K/mcL (0.0-1.3); Monocytes % 1.5 %; Platelet Count 101 K/mcL (140-400); Red Blood Count 4.48 M/mcL (4.19-5.50); Red Cell Distribution Width 12.3 % (11.5-14.5); Segmented Neutrophils % 94.1 %
[2017-10-15] MEDS: FentaNYL (PF) 1,000 MCG in 0.9 % Sodium Chloride 80 ML IVC SCH ×2 (05:45→21:25)
[2017-10-15] MEDS: 0.9 % Sodium Chloride 1,000 ML IVC SCH ×2 (05:49→18:12)
[2017-10-15] MEDS: *HR* Heparin 5,000 UNIT/ML VIAL SQ SCH ×3 (05:49→21:24)
[2017-10-15] MEDS: Azithromycin 500 MG in D5% in Water 250 ML IVPB SCH (05:50)
[2017-10-15] MEDS: MethylPREDNISolone 40 MG/ML VIAL IVP SCH ×3 (05:50→18:10)
[2017-10-15] MEDS: Famotidine 20 MG/2 ML VIAL IVP SCH ×2 (05:50→18:12)
[2017-10-15] MEDS: Cefepime HCl 2,000 MG in Water for inj. (sterile) 20 ML 20 ML IVP SCH ×2 (05:50→18:13)
[2017-10-15 05:55] LABS: INR 1.1; Prothrombin Time 11.4 Seconds (9.4-12.1)
[2017-10-15 05:57] LABS: Activated Partial Thrombo Time 22.5 Seconds (26.0-36.0)
[2017-10-15] MEDS ORDERED: Cefepime HCl 2,000 MG in D5% in Water (Mini-Bag+) 100 ML IVPB SCH (06:00)
[2017-10-15] MEDS ORDERED: Vancomycin 0 MG in D5% in Water 250 ML IVPB SCH (06:00)
[2017-10-15 06:42] LABS: VBG Ionized Calcium 1.08 mmol/L (1.15-1.35); VBG PH 7.31 pH Units (7.32-7.42)
[2017-10-15 07:06] LABS: Alanine Aminotransferase 15 Units/L (7-52); Albumin 3.6 g/dL (3.5-5.7); Alkaline Phosphatase 50 Units/L (34-104); Aspartate Amino Transferase 23 Units/L (13-39); Bilirubin,Total 0.9 mg/dL (0.3-1.0); Blood Urea Nitrogen 9 mg/dL (8-23); Calcium 8.2 mg/dL (8.6-10.3); Carbon Dioxide 17 mEq/L (23-29); Chloride 102 mEq/L (98-107); Globulin 1.8 g/dL (2.4-3.5); Glucose 125 mg/dL (70-105); Osmolality,Calculated 268 (280-300); Potassium 3.6 mEq/L (3.5-5.1); Sodium 129 mEq/L (136-145); Total Protein 5.4 g/dL (6.4-8.9)
[2017-10-15] MEDS ORDERED: Aminoglycoside Consult 1 EACH MC ONE (07:22)
[2017-10-15] MEDS: Ipratropium/Albuterol Neb 3 ML IH SCH ×4 (07:54→23:24)
--- NOTE | 2017-10-15 09:28 | Pulmonology Consult Note ---
<Delbert Moore - Last Filed: 10/15/17 11:11> Date of Encounter: 10/15/17 Time of Encounter: 09:24 Assessment and Plan (1) Acute respiratory failure Current Visit: No Status: Acute Patient is currently intubated and sedated at this time. The patient's respiratory status is likely associated with the patient's pneumonia and history of COPD. There is likely some component of possible CHF given the patient's previous history of CAD a combined with appearance on chest x-ray. BNP and troponin will be drawn at this time for evaluation. If there is some amount of elevation in BNP, we will discuss diuresing the patient. The patient is doing well the ventilator and he was increased on his respiratory rate upon evaluation at this morning after having a slightly decreased pH on ABG. We will reassess this afternoon with a VBG pH to determine if improvement of pH. We will continue with the patient on the ventilator today and likely reassessed tomorrow for possible SBT and extubation. Patient currently receiving scheduled DuoNeb's as well as scheduled 40 mg IV Solu-Medrol. We will continue these at this time. Qualifiers: Respiratory failure complication: hypoxia Qualified Code(s): J96.01 - Acute respiratory failure with hypoxia (2) Sepsis Current Visit: Yes Status: Acute This is likely community-acquired as the patient has not had any recent hospitalizations over the course of the past 2 months. He was previously admitted roughly 2 months ago with a community-acquired pneumonia. Given the patient's sepsis associated with a pneumonia, he will continue with broad spectrum antibiotics. The patient will receive sputum culture, blood cultures that were also performed at [facility]. In addition we will perform a urine culture as well as viral panel. We will continue the patient on broad- spectrum antibiotic until we can likely de-escalate due to return of blood cultures. The patient has had no episodes of hypotension and his blood pressures at stable. The patient is not currently tachycardic and demonstrates no elevation and lactic acid. Qualifiers: Sepsis type: sepsis due to unspecified organism Qualified Code(s): A41.9 - Sepsis, unspecified organism (3) Pneumonia Current Visit: No Status: Acute Qualifiers: Pneumonia type: due to unspecified organism Laterality: left Lung location: unspecified part of lung Qualified Code(s): J18.9 - Pneumonia, unspecified organism (4) CAD (coronary artery disease) Current Visit: No Status: Chronic Qualifiers: Coronary Disease-Associated Artery/Lesion type: [place] artery [place] vs. transplanted heart: [place] heart Associated angina: without angina Qualified Code(s): I25.10 - Atherosclerotic heart disease of [place] coronary artery without angina pectoris (5) History of cancer Current Visit: No Status: Chronic (6) Hypertension Current Visit: No Status: Chronic Qualifiers: Hypertension type: essential hypertension Qualified Code(s): I10 - Essential (primary) hypertension (7) CHF exacerbation Current Visit: Yes Status: Acute We will continue to monitor the patient's blood pressures and likely diuresis patient tomorrow. Qualifiers: Congestive heart failure type: combined Qualified Code(s): I50.43 - Acute on chronic combined systolic (congestive) and diastolic (congestive) heart failure History of Present Illness Consult date: 10/15/17 Requesting physician: Lorraine Méndez Reason for consult: dyspnea, pneumonia Chief complaint: Respiratory failure History of present illness: Patient is a 66-year-old male with history of COPD, CAD, hypertension, status post lung cancer with a left lower lobe pneumectomy, status post colon cancer with partial resection, arrived to [facility] ICU as a transfer from [facility]. The patient was complaining of worsening difficulty breathing over the past 24 hours and was subsequently taken to [facility]. In route to [facility], there was concern for agonal breathing. At that time the patient received bag valve mask ventilations. The patient was also speaking seizure-like activity and was subsequently administered Ativan. Upon arrival to the emergency department he was intubated. The patient received steroids, Zosyn, vancomycin. Patient arrives to [facility] ICU. His blood pressures have remained stable. The patient is currently sedated on Versed and fentanyl. The patient' s chest x-ray demonstrates a left lower lobe effusion. The patient does have some increased lung markings bilaterally. The patient is noted to have no leukocytosis, no elevation and lactic acid. His last blood glasses demonstrates mild acidemia with a mildly elevated CO2 at 50. Past Med Surg Social Fam HX - Past Medical History Source: old records reviewed Medical history: cancer, COPD, coronary artery disease, hyperlipidemia, hypertension, myocardial infarction Psychiatric history: anxiety, depression - Past Surgical History Surgical History: pacemaker/AICD, other - Social History Smoking Status: Current every day smoker Packs per day: .5 Smokeless Tobacco Status: No Alcohol use: rarely Drug use: none Current living situation: Home, With Family - Family History Mother Cause of : Breast Ca Hx Family Cancer: Yes (Breast) Medications and Allergies Albuterol Neb [AccuNeb] 1.25 mg IH Q4H PRN 12/20/15 [History] Metoprolol [Lopressor] 25 mg PO BID 12/20/15 [History] [place]-3/Dha/Epa/Fish Oil [Fish Oil 1,000 mg Softgel] 1 each PO DAILY 12/20/15 [ History] Pravastatin Sodium [Pravachol] 40 mg PO HS 12/20/15 [History] Acetaminophen [Tylenol] 500 mg PO Q6HR PRN 08/01/17 [History] levoFLOXacin [Levaquin] 750 mg PO DAILY #7 tablet 08/04/17 [Rx] predniSONE [PredniSONE] 10 mg PO DAILY #30 tablet 08/04/17 [Rx] 3 Allergy/AdvReac Type Severity Reaction Status Date / Time No Known Allergies Allergy Verified 12/20/15 15:45 ROS unobtainable: due to endotracheal tube All Systems: A 10-system review of systems was performed and is negative for pertinent findings except as documented above in the HPI. Physical Examination Vital Signs: Vital Signs, Last 4 Hours Temp Pulse Resp BP Pulse Ox 10/15/17 08:01 97.3 F L 10/15/17 07:54 17 98 10/15/17 07:00 72 15 103/68 97 10/15/17 06:12 76 16 107/69 97 10/15/17 05:31 75 16 97/66 97 General appearance: other (Patient is currently intubated and sedated.) Eyes: nonicteric ENT: oropharynx moist Effort: other (Intubated on ventilator. He is having intermittent episodes of assisted breaths.) Auscultation: bilateral: diminished breath sounds Cardiovascular: regular rate and rhythm Gastrointestinal: soft Integumentary: normal Extremities: no cyanosis, no edema, no clubbing other (Patient intubated and sedated at this time.) Ventilator Settings Ventilator Settings: Ventilator Settings, Last 8 Hours Ventilator Mode A/C Ventilator Mode A/C Ventilator Mode A/C Ventilator Mode A/C Ventilator Tidal Volume 450 Setting Ventilator Tidal Volume 450 Setting Ventilator Tidal Volume 450 Setting Ventilator Tidal Volume 450 Setting Ventilator Tidal Volume 450 Setting Ventilator Tidal Volume 450 Setting Ventilator Tidal Volume 450 Setting Ventilator Respiratory Rate 14 Setting Ventilator Respiratory Rate 14 Setting Ventilator Respiratory Rate 14 Setting Ventilator Respiratory Rate 14 Setting Ventilator Respiratory Rate 14 Setting Ventilator Respiratory Rate 14 Setting Ventilator Respiratory Rate 14 Setting Actual Respiratory Rate 16 Actual Respiratory Rate 15 Actual Respiratory Rate 16 Actual Respiratory Rate 16 Actual Respiratory Rate 16 Actual Respiratory Rate 16 Actual Respiratory Rate 17 Positive End Expiratory 5 Pressure Positive End Expiratory 5 Pressure Positive End Expiratory 5 Pressure Positive End Expiratory 5 Pressure Positive End Expiratory 5 Pressure Positive End Expiratory 5 Pressure Positive End Expiratory 5 Pressure Positive End Expiratory 5 Pressure Peak Inspiratory Airway 23 Pressure Peak Inspiratory Airway 22 Pressure Peak Inspiratory Airway 22 Pressure Peak Inspiratory Airway 22 Pressure Peak Inspiratory Airway 22 Pressure Peak Inspiratory Airway 22 Pressure Peak Inspiratory Airway 24 Pressure Results - Laboratory Findings CBC and BMP: 10/15/17 05:30 10/15/17 05:30 ABG ABG pH 7.29 pH Units (7.32-7.45) L 10/15/17 05:38 ABG pCO2 50 mmHg (35-45) H 10/15/17 05:38 ABG pO2 106 mmHg (85-104) H 10/15/17 05:38 ABG O2 Saturation 97 % (95-98) 10/15/17 05:38 PT/INR, D-dimer PT 11.4 Seconds (9.4-12.1) 10/15/17 05:30 Abnormal lab findings: Abnormal lab results Plt Count 101 K/mcL (140-400) L 10/15/17 05:30 Neutrophils # 9.0 K/mcL (1.6-8.9) H 10/15/17 05:30 Lymphocytes # 0.3 K/mcL (0.6-4.6) L 10/15/17 05:30 APTT 22.5 Seconds (26.0-36.0) L 10/15/17 05:30 ABG pH 7.29 pH Units (7.32-7.45) L 10/15/17 05:38 ABG pCO2 50 mmHg (35-45) H 10/15/17 05:38 ABG pO2 106 mmHg (85-104) H 10/15/17 05:38 ABG Base Excess -3 mEq/L (-2 to 3) L 10/15/17 05:38 VBG pH 7.31 pH Units (7.32-7.42) L 10/15/17 06:32 Sodium 129 mEq/L (136-145) L 10/15/17 05:30 Carbon Dioxide 17 mEq/L (23-29) L 10/15/17 05:30 Glucose 125 mg/dL (70-105) H 10/15/17 05:30 Calculated Osmolality 268 (280-300) L 10/15/17 05:30 Calcium 8.2 mg/dL (8.6-10.3) L 10/15/17 05:30 Venous Ioniz Calcium 1.08 mmol/L (1.15-1.35) L 10/15/17 06:32 Serum Total Protein 5.4 g/dL (6.4-8.9) L 10/15/17 05:30 Globulin 1.8 g/dL (2.4-3.5) L 10/15/17 05:30 - Clinical Findings Intake & Output: Intake & Output 10/14/17 10/15/17 10/15/17 23:59 07:59 15:59 Intake Total 20 / 20 Output Total 150 / 150 150 / 150 Balance -130 / -130 -150 / -150 Weight 75.5 kg Consult Discharge Plan - Plan Referrals: Rosie Hilton, BUSINESS APPLICATIONS ANALYST [Primary Care Provider] - - Attending Attestation I examined this patient and my medical decision-making was reviewed with the Resident Physician. I agree with the documented findings, disposition and treatment plan as described except to the extent set forth below. <Bruce Demarco S - Last Filed: 10/16/17 08:53> Date of Encounter: 10/16/17 All Systems: A 10-system review of systems was performed and is negative for pertinent findings except as documented above in the HPI. Physical Examination Vital Signs: Vital Signs, Last 4 Hours Pulse Resp BP Pulse Ox 10/15/17 18:00 86 28 128/68 97 10/15/17 17:00 82 22 129/75 95 10/15/17 16:59 25 96 10/15/17 16:00 85 22 121/84 97 10/15/17 15:00 70 16 106/63 97 Ventilator Settings Ventilator Settings: Ventilator Settings, Last 8 Hours Ventilator Mode A/C Ventilator Mode A/C Ventilator Mode A/C Ventilator Mode A/C Ventilator Tidal Volume 450 Setting Ventilator Tidal Volume 450 Setting Ventilator Tidal Volume 450 Setting Ventilator Tidal Volume 450 Setting Ventilator Respiratory Rate 16 Setting Ventilator Respiratory Rate 16 Setting Ventilator Respiratory Rate 16 Setting Ventilator Respiratory Rate 16 Setting Actual Respiratory Rate 22 Actual Respiratory Rate 22 Actual Respiratory Rate 20 Actual Respiratory Rate 22 Actual Respiratory Rate 18 Actual Respiratory Rate 16 Actual Respiratory Rate 19 Actual Respiratory Rate 16 Actual Respiratory Rate 16 Actual Respiratory Rate 16 Actual Respiratory Rate 16 Positive End Expiratory 5 Pressure Positive End Expiratory 5 Pressure Positive End Expiratory 5 Pressure Positive End Expiratory 5 Pressure Positive End Expiratory 5 Pressure Positive End Expiratory 5 Pressure Positive End Expiratory 5 Pressure Positive End Expiratory 5 Pressure Positive End Expiratory 5 Pressure Positive End Expiratory 5 Pressure Positive End Expiratory 5 Pressure Peak Inspiratory Airway 23 Pressure Peak Inspiratory Airway 22 Pressure Peak Inspiratory Airway 23 Pressure Peak Inspiratory Airway 21 Pressure Peak Inspiratory Airway 30 Pressure Peak Inspiratory Airway 26 Pressure Results - Laboratory Findings CBC and BMP: 10/16/17 05:55 10/16/17 05:55 ABG ABG pH 7.29 pH Units (7.32-7.45) L 10/15/17 05:38 ABG pCO2 50 mmHg (35-45) H 10/15/17 05:38 ABG pO2 106 mmHg (85-104) H 10/15/17 05:38 ABG O2 Saturation 97 % (95-98) 10/15/17 05:38 PT/INR, D-dimer PT 11.4 Seconds (9.4-12.1) 10/15/17 05:30 Abnormal lab findings: Abnormal lab results Plt Count 101 K/mcL (140-400) L 10/15/17 05:30 Neutrophils # 9.0 K/mcL (1.6-8.9) H 10/15/17 05:30 Lymphocytes # 0.3 K/mcL (0.6-4.6) L 10/15/17 05:30 APTT 22.5 Seconds (26.0-36.0) L 10/15/17 05:30 ABG pH 7.29 pH Units (7.32-7.45) L 10/15/17 05:38 ABG pCO2 50 mmHg (35-45) H 10/15/17 05:38 ABG pO2 106 mmHg (85-104) H 10/15/17 05:38 ABG Base Excess -3 mEq/L (-2 to 3) L 10/15/17 05:38 VBG pH 7.31 pH Units (7.32-7.42) L 10/15/17 06:32 Sodium 129 mEq/L (136-145) L 10/15/17 05:30 Carbon Dioxide 17 mEq/L (23-29) L 10/15/17 05:30 Glucose 125 mg/dL (70-105) H 10/15/17 05:30 POC Glucose 119 (58-89) H 10/15/17 11:38 Calculated Osmolality 268 (280-300) L 10/15/17 05:30 Calcium 8.2 mg/dL (8.6-10.3) L 10/15/17 05:30 Venous Ioniz Calcium 1.08 mmol/L (1.15-1.35) L 10/15/17 06:32 B-Natriuretic Peptide 372 pg/mL (Less than 100) H 10/15/17 09:38 Serum Total Protein 5.4 g/dL (6.4-8.9) L 10/15/17 05:30 Globulin 1.8 g/dL (2.4-3.5) L 10/15/17 05:30 - Microbiology Findings Microbiology Findings: Microbiology, Last 48 Hours 10/15/17 09:15 Legionella Antigen - Final Urine,Clean Catch Streptococcus pneumoniae Antigen (M - Final - Clinical Findings Intake & Output: Intake & Output 10/15/17 10/15/17 10/15/17 07:59 15:59 23:59 Intake Total 20 / 20 Output Total 150 / 150 225 / 225 200 / 200 Balance -130 / -130 -225 / -225 -200 / -200 Weight 75.5 kg - Attending Attestation I saw and evaluated this patient and my medical decision-making was reviewed with the Resident Physician. I agree with the documented findings, disposition and treatment plan as described except to the extent set forth below. We independently had [id number] contact with the patient I spent of Critical Care time 35 minutes with this patient. It involved decision making of high complexity to assess, manipulate, and support vital organ system failure and/or to prevent further life threatening deterioration of the patient's condition. The time involved in the performance of separately reportable procedures was not counted toward critical care time. Patient seen and examined at bedside Labs, radiology, chart personally reviewed. WELDER G[employer] TUNGSTEN ARC:Patient is can be aroused was following commands patient is intubated and sedated . Will liberate sedation tomorrow morning to try spontaneous breathing trial Pulm:Patient has lung cancer s/p lobectomy now coming with acute on chronic respiratory failure secondary to COPD exacerbation complicated by left lower lobe pneumonia will continue with low tidal volume ventilation has some component of fluid overlaod will hold off diuresis for now in the background of sepsis Cards:Hemodynamically stable now has some diastolic dysfunction with fluid overload in chest imaging will hold off diuresis now FEN-GI: Will start on trophic feeding Renal:Labs reviewed and output reviewed ID:Patient has sepsis secondary to pneumonia to continue broad spectrum antibiotics Heme/Onc:Patient prior history of Lung cancer and Colon cancer - Hematology labs reviewed Endo: Glucose Monitored Integ/MSK: Skin Care per routine ICU Nursing Protocol to prevent ulcers. Lines: All lines examined without evidence of infection : Dispo: Critically ill CODE: Full Code
[2017-10-15] MEDS: Docusate Oral Soln 100 MG/10 ML UDC GTUBE SCH ×2 (09:43→21:21)
[2017-10-15] MEDS: Chlorhexidine Rinse 15 ML MOUTHWASH MM SCH ×2 (09:43→21:21)
[2017-10-15] MEDS: Lacri-Lube 3.5 GM TUBE BOTH EYES SCH ×4 (09:44→21:21)
[2017-10-15] MEDS: Dexmedetomidine HCl 400 MCG/100 ML MLS IVC SCH ×2 (09:54→20:45)
[2017-10-15 10:02] LABS: Adenovirus Not Detected (Not Detect); Bordetella Pertussis Not Detected (Not Detect); Chlamydophila pneumoniae Not Detected (Not Detect); Coronavirus 229E Not Detected (Not Detect); Coronavirus HKU1 Not Detected (Not Detect); Coronavirus NL63 Not Detected (Not Detect); Coronavirus OC43 Not Detected (Not Detect); Human Metapneumovirus Not Detected (Not Detect); Human Rhinovirus/Enterovirus Not Detected (Not Detect); Influenza A Subtype 2009 H1 Not Detected (Not Detect); Influenza A Untypeable Not Detected (Not Detect); Influenza B Not Detected (Not Detect); Mycoplasma pneumoniae Not Detected (Not Detect); Parainfluenza Virus 1 Not Detected (Not Detect); Parainfluenza Virus 2 Not Detected (Not Detect); Parainfluenza Virus 3 Not Detected (Not Detect); Parainfluenza Virus 4 Not Detected (Not Detect); Respiratory Syncytial Virus Not Detected (Not Detect)
[2017-10-15 10:20] LABS: BUN/Creatinine Ratio 10 (6-26); eGFR For African Americans > 60 (> 60); eGFR For Non-African Americans > 60 (> 60)
[2017-10-15] MEDS: Vancomycin 1,000 MG in D5% in Water 250 ML IVPB SCH (11:51)
[2017-10-16] MEDS: MethylPREDNISolone 40 MG/ML VIAL IVP SCH ×3 (00:02→17:16)
[2017-10-16] MEDS: Vancomycin 1,000 MG in D5% in Water 250 ML IVPB SCH (00:02)
[2017-10-16] MEDS: Lacri-Lube 3.5 GM TUBE BOTH EYES SCH ×7 (00:22→23:09)
[2017-10-16] MEDS: 0.9 % Sodium Chloride 1,000 ML IVC SCH ×3 (00:22→21:25)
[2017-10-16] MEDS: Dexmedetomidine HCl 400 MCG/100 ML MLS IVC SCH (02:39)
[2017-10-16] MEDS: Ipratropium/Albuterol Neb 3 ML IH SCH ×4 (04:07→23:25)
[2017-10-16] MEDS: Famotidine 20 MG/2 ML VIAL IVP SCH ×2 (05:14→17:16)
[2017-10-16] MEDS: *HR* Heparin 5,000 UNIT/ML VIAL SQ SCH ×3 (05:14→21:19)
[2017-10-16] MEDS: Cefepime HCl 2,000 MG in Water for inj. (sterile) 20 ML 20 ML IVP SCH ×2 (05:14→17:16)
[2017-10-16] MEDS: Azithromycin 500 MG in D5% in Water 250 ML IVPB SCH (05:15)
[2017-10-16 05:40] LABS: ABG Base Excess -2 mEq/L (-2 to 3); ABG HCO3 24 mEq/L (21-27); ABG Oxygen Saturation 95 % (95-98); ABG PCO2 43 mmHg (35-45); ABG PH 7.35 pH Units (7.32-7.45); ABG PO2 79 mmHg (85-104); ABG TCO2 25 mEq/L (20-26); Blood Gas Modality ASSIST CONTROL; Blood Gas PEEP 5 cm H2O; Blood Gas Respiration Rate 16; Blood Gas VT 450 cc
[2017-10-16 06:04] LABS: Hematocrit 37.9 % (37.5-50.1); Hemoglobin 12.9 g/dL (12.9-16.9); Immature Granulocytes % 0.5 % (0-4); Immature Platelets 15.5 % (1.1-6.1); Lymphocytes # 0.4 K/mcL (0.6-4.6); Lymphocytes % 4.3 %; Mean Corpuscular Hemoglobin 30.1 pg (28.0-33.3); Mean Corpuscular Volume 88.6 fL (83.0-100.0); Mean Platelet Volume 11.9 fL (9.4-12.4); Monocytes # 0.4 K/mcL (0.0-1.3); Monocytes % 3.7 %; Red Blood Count 4.28 M/mcL (4.19-5.50); Segmented Neutrophils % 91.5 %
[2017-10-16 06:08] LABS: Neutrophils # 9.2 K/mcL (1.6-8.9); Platelet Count 96 K/mcL (140-400)
[2017-10-16 06:11] LABS: VBG Ionized Calcium 1.11 mmol/L (1.15-1.35); VBG PH 7.36 pH Units (7.32-7.42)
[2017-10-16 06:35] LABS: BUN/Creatinine Ratio 18 (6-26); Blood Urea Nitrogen 15 mg/dL (8-23); Calcium 8.3 mg/dL (8.6-10.3); Carbon Dioxide 22 mEq/L (23-29); Chloride 101 mEq/L (98-107); Glucose 184 mg/dL (70-105); Magnesium 1.7 mg/dL (1.6-2.6); Osmolality,Calculated 274 (280-300); Potassium 4.6 mEq/L (3.5-5.1); Sodium 129 mEq/L (136-145); eGFR For African Americans > 60 (> 60); eGFR For Non-African Americans > 60 (> 60)
[2017-10-16] MEDS: Docusate Oral Soln 100 MG/10 ML UDC GTUBE SCH ×2 (07:31→21:19)
[2017-10-16] MEDS: Chlorhexidine Rinse 15 ML MOUTHWASH MM SCH ×2 (07:31→21:25)
[2017-10-16 08:18] LABS: ABG Base Excess -1 mEq/L (-2 to 3); ABG HCO3 24 mEq/L (21-27); ABG Oxygen Saturation 95 % (95-98); ABG PCO2 41 mmHg (35-45); ABG PH 7.38 pH Units (7.32-7.45); ABG PO2 77 mmHg (85-104); ABG TCO2 25 mEq/L (20-26); Blood Gas Modality CPAP/PS; Blood Gas PEEP 5 cm H2O; Blood Gas Pressure Support 5 cm H2O
[2017-10-16] MEDS: Ipratropium/Albuterol Neb 3 ML IH PRN ×2 (08:18→21:03)
--- NOTE | 2017-10-16 08:40 | Pulmonology Progress Note ---
<Delbert Moore - Last Filed: 10/16/17 11:01> Date of Encounter: 10/16/17 Time of Encounter: 08:38 Assessment and Plan (1) Acute respiratory failure Current Visit: No Status: Acute Patient's respiratory status is improving. He is breathing spontaneously over the vent. He is resting comfortably on the ventilator. He states he is ready to be extubated. We will extubate the patient today after a breathing trial. His neck was -50. We will continue to monitor. We will support his respiratory status with BiPAP and oxygen as necessary. Patient will likely be transferred off the floor this afternoon. 1100: Patient was extubated and doing well on BiPAP. Qualifiers: Respiratory failure complication: hypoxia Qualified Code(s): J96.01 - Acute respiratory failure with hypoxia (2) Sepsis Current Visit: Yes Status: Acute Patient's condition has been improving. He will continue on antibiotics and we will likely de-escalate today pending cultures today. Qualifiers: Sepsis type: sepsis due to unspecified organism Qualified Code(s): A41.9 - Sepsis, unspecified organism (3) Pneumonia Current Visit: No Status: Acute Qualifiers: Pneumonia type: due to unspecified organism Laterality: left Lung location: unspecified part of lung Qualified Code(s): J18.9 - Pneumonia, unspecified organism (4) CAD (coronary artery disease) Current Visit: No Status: Chronic Qualifiers: Coronary Disease-Associated Artery/Lesion type: [place] artery [place] vs. transplanted heart: [place] heart Associated angina: without angina Qualified Code(s): I25.10 - Atherosclerotic heart disease of [place] coronary artery without angina pectoris (5) History of cancer Current Visit: No Status: Chronic (6) Hypertension Current Visit: No Status: Chronic Qualifiers: Hypertension type: essential hypertension Qualified Code(s): I10 - Essential (primary) hypertension (7) CHF exacerbation Current Visit: Yes Status: Acute Qualifiers: Congestive heart failure type: combined Qualified Code(s): I50.43 - Acute on chronic combined systolic (congestive) and diastolic (congestive) heart failure Subjective Principal diagnosis: Respiratory failure, pneumonia. Interval history: Patient has improvement in his mental status overnight. He is resting comfortably on the ventilator at this time. He has been spontaneously breathing for a few hours now. The patient has improved respiratorily. Patient will likely be extubated today. Objective PUL Vital signs: Last Vital Signs Temp 98.1 F 10/16/17 07:45 Pulse 75 10/16/17 07:00 Resp 15 10/16/17 08:19 BP 100/64 10/16/17 07:00 Pulse Ox 95 10/16/17 08:19 General appearance: no acute distress, other (Patient intubated) Eyes: nonicteric Effort: normal Auscultation: bilateral: clear Cardiovascular: regular rate and rhythm Gastrointestinal: soft, non-distended Integumentary: normal Extremities: no cyanosis, no edema, no clubbing normal mental status Ventilator Settings Ventilator Settings: Ventilator Settings, Last 8 Hours Ventilator Mode CPAP Ventilator Mode CPAP Ventilator Mode CPAP Ventilator Mode A/C Ventilator Mode A/C Ventilator Mode A/C Ventilator Mode A/C Ventilator Mode A/C Ventilator Mode A/C Ventilator Mode A/C Ventilator Mode A/C Ventilator Mode A/C Ventilator Tidal Volume 450 Setting Ventilator Tidal Volume 450 Setting Ventilator Tidal Volume 450 Setting Ventilator Tidal Volume 450 Setting Ventilator Tidal Volume 450 Setting Ventilator Tidal Volume 450 Setting Ventilator Tidal Volume 450 Setting Ventilator Tidal Volume 450 Setting Ventilator Tidal Volume 450 Setting Ventilator Respiratory Rate 16 Setting Ventilator Respiratory Rate 16 Setting Ventilator Respiratory Rate 16 Setting Ventilator Respiratory Rate 16 Setting Ventilator Respiratory Rate 16 Setting Ventilator Respiratory Rate 16 Setting Ventilator Respiratory Rate 16 Setting Ventilator Respiratory Rate 16 Setting Ventilator Respiratory Rate 16 Setting Actual Respiratory Rate 17 Actual Respiratory Rate 14 Actual Respiratory Rate 13 Actual Respiratory Rate 17 Actual Respiratory Rate 22 Actual Respiratory Rate 24 Actual Respiratory Rate 23 Actual Respiratory Rate 19 Actual Respiratory Rate 19 Actual Respiratory Rate 20 Actual Respiratory Rate 17 Positive End Expiratory 5 Pressure Positive End Expiratory 5 Pressure Positive End Expiratory 5 Pressure Positive End Expiratory 5 Pressure Positive End Expiratory 5 Pressure Positive End Expiratory 5 Pressure Positive End Expiratory 5 Pressure Positive End Expiratory 5 Pressure Positive End Expiratory 5 Pressure Positive End Expiratory 5 Pressure Positive End Expiratory 5 Pressure Peak Inspiratory Airway 10 Pressure Peak Inspiratory Airway 11 Pressure Peak Inspiratory Airway 11 Pressure Peak Inspiratory Airway 30 Pressure Peak Inspiratory Airway 30 Pressure Peak Inspiratory Airway 22 Pressure Peak Inspiratory Airway 23 Pressure Peak Inspiratory Airway 25 Pressure Peak Inspiratory Airway 31 Pressure Peak Inspiratory Airway 32 Pressure Peak Inspiratory Airway 30 Pressure Results - Laboratory Findings CBC and BMP: 10/16/17 05:55 10/16/17 05:55 ABG ABG pH 7.38 pH Units (7.32-7.45) 10/16/17 08:13 ABG pCO2 41 mmHg (35-45) 10/16/17 08:13 ABG pO2 77 mmHg (85-104) L 10/16/17 08:13 ABG O2 Saturation 95 % (95-98) 10/16/17 08:13 PT/INR, D-dimer PT 11.4 Seconds (9.4-12.1) 10/15/17 05:30 Abnormal lab findings: Abnormal lab results Plt Count 96 K/mcL (140-400) L 10/16/17 05:55 Neutrophils # 9.2 K/mcL (1.6-8.9) H 10/16/17 05:55 Lymphocytes # 0.4 K/mcL (0.6-4.6) L 10/16/17 05:55 Immature Plt Fraction 15.5 % (1.1-6.1) H 10/16/17 05:55 APTT 22.5 Seconds (26.0-36.0) L 10/15/17 05:30 ABG pO2 77 mmHg (85-104) L 10/16/17 08:13 Sodium 129 mEq/L (136-145) L 10/16/17 05:55 Carbon Dioxide 22 mEq/L (23-29) L 10/16/17 05:55 Glucose 184 mg/dL (70-105) H 10/16/17 05:55 POC Glucose 141 (58-89) H 10/15/17 23:47 Calculated Osmolality 274 (280-300) L 10/16/17 05:55 Calcium 8.3 mg/dL (8.6-10.3) L 10/16/17 05:55 Venous Ioniz Calcium 1.11 mmol/L (1.15-1.35) L 10/16/17 06:08 B-Natriuretic Peptide 372 pg/mL (Less than 100) H 10/15/17 09:38 Serum Total Protein 5.4 g/dL (6.4-8.9) L 10/15/17 05:30 Globulin 1.8 g/dL (2.4-3.5) L 10/15/17 05:30 - Microbiology Findings Microbiology Findings: Microbiology, Last 48 Hours 10/15/17 09:15 Legionella Antigen - Final Urine,Clean Catch Streptococcus pneumoniae Antigen (M - Final - Clinical Findings Intake & Output: Intake & Output 10/15/17 10/16/17 10/16/17 23:59 07:59 15:59 Intake Total 220 / 220 755 / 755 Output Total 400 / 400 225 / 225 Balance -180 / -180 530 / 530 Weight 75.3 kg Consult Discharge Plan - Plan Referrals: Rosie Hilton, GLAZE MIXER [Primary Care Provider] - - Attending Attestation I examined this patient and my medical decision-making was reviewed with the Resident Physician. I agree with the documented findings, disposition and treatment plan as described except to the extent set forth below. <Bruce Demarco - Last Filed: 10/17/17 13:44> Date of Encounter: 10/17/17 Objective PUL Vital signs: Last Vital Signs Temp 97.8 F 10/17/17 03:46 Pulse 111 10/17/17 05:00 Resp 16 10/17/17 05:00 BP 132/69 10/17/17 05:00 Pulse Ox 95 10/17/17 05:00 Results - Laboratory Findings CBC and BMP: 10/17/17 06:07 10/17/17 06:07 ABG ABG pH 7.38 pH Units (7.32-7.45) 10/16/17 08:13 ABG pCO2 41 mmHg (35-45) 10/16/17 08:13 ABG pO2 77 mmHg (85-104) L 10/16/17 08:13 ABG O2 Saturation 95 % (95-98) 10/16/17 08:13 PT/INR, D-dimer PT 11.4 Seconds (9.4-12.1) 10/15/17 05:30 Abnormal lab findings: Abnormal lab results Plt Count 96 K/mcL (140-400) L 10/16/17 05:55 Neutrophils # 9.2 K/mcL (1.6-8.9) H 10/16/17 05:55 Lymphocytes # 0.4 K/mcL (0.6-4.6) L 10/16/17 05:55 Immature Plt Fraction 15.5 % (1.1-6.1) H 10/16/17 05:55 APTT 22.5 Seconds (26.0-36.0) L 10/15/17 05:30 ABG pO2 77 mmHg (85-104) L 10/16/17 08:13 Sodium 129 mEq/L (136-145) L 10/16/17 05:55 Carbon Dioxide 22 mEq/L (23-29) L 10/16/17 05:55 Glucose 184 mg/dL (70-105) H 10/16/17 05:55 POC Glucose 136 (58-89) H 10/16/17 11:10 Calculated Osmolality 274 (280-300) L 10/16/17 05:55 Calcium 8.3 mg/dL (8.6-10.3) L 10/16/17 05:55 Venous Ioniz Calcium 1.11 mmol/L (1.15-1.35) L 10/16/17 06:08 B-Natriuretic Peptide 372 pg/mL (Less than 100) H 10/15/17 09:38 Serum Total Protein 5.4 g/dL (6.4-8.9) L 10/15/17 05:30 Globulin 1.8 g/dL (2.4-3.5) L 10/15/17 05:30 - Microbiology Findings Microbiology Findings: Microbiology, Last 48 Hours 10/15/17 09:39 Blood Culture - Preliminary Peripheral Venipuncture No growth. 10/15/17 09:38 Blood Culture - Preliminary Peripheral Venipuncture No growth. 10/15/17 05:30 Blood Culture - Preliminary Peripheral Venipuncture No growth. 10/15/17 05:29 Blood Culture - Preliminary Peripheral Venipuncture No growth. 10/15/17 09:15 Legionella Antigen - Final Urine,Clean Catch Streptococcus pneumoniae Antigen (M - Final - Clinical Findings Intake & Output: Intake & Output 10/16/17 10/16/17 10/17/17 15:59 23:59 07:59 Intake Total 70 / 70 20 / 20 Output Total 150 / 150 200 / 200 1075 / 1075 Balance -150 / -150 -130 / -130 -1055 / -1055 - Attending Attestation I saw and evaluated this patient and my medical decision-making was reviewed with the Resident Physician. I agree with the documented findings, disposition and treatment plan as described except to the extent set forth below. We independently had [id number] contact with the patient I spent of Critical Care time 32 minutes with this patient. It involved decision making of high complexity to assess, manipulate, and support vital organ system failure and/or to prevent further life threatening deterioration of the patient's condition. The time involved in the performance of separately reportable procedures was not counted toward critical care time. Patient seen and examined at bedside Labs, radiology, chart personally reviewed. GEODETIC ADVISOR:Patient is awake following commands Will liberate sedation totally put him on spontaneous breathing trial planning for extubation . Pulm:Patient has lung cancer s/p lobectomy now coming with acute on chronic respiratory failure secondary to COPD exacerbation complicated by left lower lobe pneumonia mostly likely bacterial penumonia ,will continue with low tidal volume ventilation has some component of fluid overlaod will start n diuresis planning on extubation today Cards:Hemodynamically stable now has some diastolic dysfunction with fluid overload in chest imaging will start diuresis for now FEN-GI: Clears with intermittent BIPAP if extubated Renal:Labs reviewed and output reviewed ID:Patient has sepsis secondary to pneumonia to continue broad spectrum antibiotics will descalate soon Heme/Onc:Patient prior history of Lung cancer and Colon cancer - Hematology labs reviewed Endo: Glucose Monitored Integ/MSK: Skin Care per routine ICU Nursing Protocol to prevent ulcers. Lines: All lines examined without evidence of infection : Dispo: Critically ill even if after extubation there is high chance of worsening respiratory failure needing reintubation CODE: Full Code
[2017-10-16] MEDS ORDERED: Acetaminophen 325 MG TABLET PO ONE (20:57)
[2017-10-16] MEDS ORDERED: Acetaminophen 325 MG TABLET PO PRN (21:10)
[2017-10-17] MEDS: Ipratropium/Albuterol Neb 3 ML IH SCH ×4 (03:46→21:55)
[2017-10-17] MEDS: Lacri-Lube 3.5 GM TUBE BOTH EYES SCH (04:23)
[2017-10-17] MEDS: FentaNYL (PF) 1,000 MCG in 0.9 % Sodium Chloride 80 ML IVC SCH (05:11)
[2017-10-17] MEDS: Cefepime HCl 2,000 MG in Water for inj. (sterile) 20 ML 20 ML IVP SCH ×2 (05:12→17:41)
[2017-10-17] MEDS: MethylPREDNISolone 40 MG/ML VIAL IVP SCH ×2 (05:18→17:40)
[2017-10-17] MEDS: Famotidine 20 MG/2 ML VIAL IVP SCH (05:19)
[2017-10-17] MEDS: *HR* Heparin 5,000 UNIT/ML VIAL SQ SCH ×3 (05:19→21:24)
[2017-10-17 06:22] LABS: Basophils % 0.1 %; Hematocrit 38.5 % (37.5-50.1); Hemoglobin 13.1 g/dL (12.9-16.9); Immature Granulocytes % 0.7 % (0-4); Immature Platelets 17.8 % (1.1-6.1); Lymphocytes # 0.5 K/mcL (0.6-4.6); Lymphocytes % 4.4 %; Mean Corpuscular Hemoglobin 30.5 pg (28.0-33.3); Mean Corpuscular Volume 89.5 fL (83.0-100.0); Mean Platelet Volume 12.4 fL (9.4-12.4); Monocytes % 8.2 %; Neutrophils # 10.1 K/mcL (1.6-8.9); Red Cell Distribution Width 12.3 % (11.5-14.5); Segmented Neutrophils % 86.6 %
[2017-10-17 06:29] LABS: Platelet Count 98 K/mcL (140-400)
[2017-10-17 06:38] LABS: BUN/Creatinine Ratio 22 (6-26); Blood Urea Nitrogen 17 mg/dL (8-23); Calcium 8.5 mg/dL (8.6-10.3); Carbon Dioxide 26 mEq/L (23-29); Chloride 102 mEq/L (98-107); Glucose 121 mg/dL (70-105); Magnesium 2.2 mg/dL (1.6-2.6); Osmolality,Calculated 277 (280-300); Sodium 132 mEq/L (136-145); eGFR For African Americans > 60 (> 60); eGFR For Non-African Americans > 60 (> 60)
[2017-10-17] MEDS ORDERED: Ipratropium/Albuterol Neb 3 ML IH ONE (07:39)
--- NOTE | 2017-10-17 07:42 | Pulmonology Progress Note ---
<Delbert oMore - Last Filed: 10/17/17 11:23> Date of Encounter: 10/17/17 Time of Encounter: 07:39 Assessment and Plan (1) Acute respiratory failure Current Visit: No Status: Resolved Patient on BiPAP currently and resting comfortably. Qualifiers: Respiratory failure complication: hypoxia Qualified Code(s): J96.01 - Acute respiratory failure with hypoxia (2) Sepsis Current Visit: Yes Status: Acute Patient continue improved. The patient does have a slightly higher leukocytosis. He remains intermittently tachycardic but this primarily when he is active. The patient was continued on cefepime. We will likely de-escalate today. Qualifiers: Sepsis type: sepsis due to unspecified organism Qualified Code(s): A41.9 - Sepsis, unspecified organism (3) Pneumonia Current Visit: No Status: Acute Qualifiers: Pneumonia type: due to unspecified organism Laterality: left Lung location: unspecified part of lung Qualified Code(s): J18.9 - Pneumonia, unspecified organism (4) CAD (coronary artery disease) Current Visit: No Status: Chronic Qualifiers: Coronary Disease-Associated Artery/Lesion type: [place] artery [place] vs. transplanted heart: [place] heart Associated angina: without angina Qualified Code(s): I25.10 - Atherosclerotic heart disease of [place] coronary artery without angina pectoris (5) History of cancer Current Visit: No Status: Chronic (6) Hypertension Current Visit: No Status: Chronic Qualifiers: Hypertension type: essential hypertension Qualified Code(s): I10 - Essential (primary) hypertension (7) CHF exacerbation Current Visit: Yes Status: Acute Qualifiers: Congestive heart failure type: combined Qualified Code(s): I50.43 - Acute on chronic combined systolic (congestive) and diastolic (congestive) heart failure Subjective Principal diagnosis: Respiratory failure, pneumonia. Interval history: Patient was placed on BiPAP overnight without difficulties. Patient tolerated it well. Patient's labs have improved with the exception of his leukocytosis which is risen slightly. The patient was continued on cefepime overnight. We will likely continue this. The patient will likely be transferred to another floor today. Patient resting comfortably on BiPAP at this time. Objective PUL Vital signs: Last Vital Signs Temp 97.8 F 10/17/17 03:46 Pulse 107 10/17/17 07:00 Resp 17 10/17/17 07:00 BP 161/95 10/17/17 07:00 Pulse Ox 95 10/17/17 07:00 General appearance: no acute distress Eyes: nonicteric ENT: oropharynx moist Effort: normal Auscultation: bilateral: diminished breath sounds (Coarse) Cardiovascular: other (Tachycardic and ventricularly paced.) Gastrointestinal: soft Integumentary: normal Extremities: no cyanosis, no edema, no clubbing normal mental status, non-focal exam Results - Laboratory Findings CBC and BMP: 10/17/17 06:07 10/17/17 06:07 ABG ABG pH 7.38 pH Units (7.32-7.45) 10/16/17 08:13 ABG pCO2 41 mmHg (35-45) 10/16/17 08:13 ABG pO2 77 mmHg (85-104) L 10/16/17 08:13 ABG O2 Saturation 95 % (95-98) 10/16/17 08:13 PT/INR, D-dimer PT 11.4 Seconds (9.4-12.1) 10/15/17 05:30 Abnormal lab findings: Abnormal lab results WBC 11.6 K/mcL (4.3-11.1) H 10/17/17 06:07 Plt Count 98 K/mcL (140-400) L 10/17/17 06:07 Neutrophils # 10.1 K/mcL (1.6-8.9) H 10/17/17 06:07 Lymphocytes # 0.5 K/mcL (0.6-4.6) L 10/17/17 06:07 Immature Plt Fraction 17.8 % (1.1-6.1) H 10/17/17 06:07 APTT 22.5 Seconds (26.0-36.0) L 10/15/17 05:30 ABG pO2 77 mmHg (85-104) L 10/16/17 08:13 Sodium 132 mEq/L (136-145) L 10/17/17 06:07 Glucose 121 mg/dL (70-105) H 10/17/17 06:07 POC Glucose 136 (58-89) H 10/16/17 11:10 Calculated Osmolality 277 (280-300) L 10/17/17 06:07 Calcium 8.5 mg/dL (8.6-10.3) L 10/17/17 06:07 Venous Ioniz Calcium 1.11 mmol/L (1.15-1.35) L 10/16/17 06:08 B-Natriuretic Peptide 372 pg/mL (Less than 100) H 10/15/17 09:38 Serum Total Protein 5.4 g/dL (6.4-8.9) L 10/15/17 05:30 Globulin 1.8 g/dL (2.4-3.5) L 10/15/17 05:30 - Microbiology Findings Microbiology Findings: Microbiology, Last 48 Hours 10/15/17 09:39 Blood Culture - Preliminary Peripheral Venipuncture No growth. 10/15/17 09:38 Blood Culture - Preliminary Peripheral Venipuncture No growth. 10/15/17 05:30 Blood Culture - Preliminary Peripheral Venipuncture No growth. 10/15/17 05:29 Blood Culture - Preliminary Peripheral Venipuncture No growth. 10/15/17 09:15 Legionella Antigen - Final Urine,Clean Catch Streptococcus pneumoniae Antigen (M - Final - Clinical Findings Intake & Output: Intake & Output 10/16/17 10/16/17 10/17/17 15:59 23:59 07:59 Intake Total 70 / 70 20 / 20 Output Total 150 / 150 200 / 200 1075 / 1075 Balance -150 / -150 -130 / -130 -1055 / -1055 Consult Discharge Plan - Plan Referrals: oRsie Hilton, MELON PACKER [Primary Care Provider] - - Attending Attestation I examined this patient and my medical decision-making was reviewed with the Resident Physician. I agree with the documented findings, disposition and treatment plan as described except to the extent set forth below. <Bruce Demarco - Last Filed: 10/17/17 23:14> Date of Encounter: 10/17/17 Objective PUL Vital signs: Last Vital Signs Temp 98.1 F 10/17/17 15:30 Pulse 111 10/17/17 16:00 Resp 16 10/17/17 21:56 BP 142/112 10/17/17 16:00 Pulse Ox 94 10/17/17 21:56 Results - Laboratory Findings CBC and BMP: 10/17/17 06:07 10/17/17 06:07 ABG ABG pH 7.38 pH Units (7.32-7.45) 10/16/17 08:13 ABG pCO2 41 mmHg (35-45) 10/16/17 08:13 ABG pO2 77 mmHg (85-104) L 10/16/17 08:13 ABG O2 Saturation 95 % (95-98) 10/16/17 08:13 PT/INR, D-dimer PT 11.4 Seconds (9.4-12.1) 10/15/17 05:30 Abnormal lab findings: Abnormal lab results WBC 11.6 K/mcL (4.3-11.1) H 10/17/17 06:07 Plt Count 98 K/mcL (140-400) L 10/17/17 06:07 Neutrophils # 10.1 K/mcL (1.6-8.9) H 10/17/17 06:07 Lymphocytes # 0.5 K/mcL (0.6-4.6) L 10/17/17 06:07 Immature Plt Fraction 17.8 % (1.1-6.1) H 10/17/17 06:07 APTT 22.5 Seconds (26.0-36.0) L 10/15/17 05:30 ABG pO2 77 mmHg (85-104) L 10/16/17 08:13 Sodium 132 mEq/L (136-145) L 10/17/17 06:07 Glucose 121 mg/dL (70-105) H 10/17/17 06:07 POC Glucose 136 (58-89) H 10/16/17 11:10 Calculated Osmolality 277 (280-300) L 10/17/17 06:07 Calcium 8.5 mg/dL (8.6-10.3) L 10/17/17 06:07 Venous Ioniz Calcium 1.10 mmol/L (1.15-1.35) L 10/17/17 08:10 B-Natriuretic Peptide 372 pg/mL (Less than 100) H 10/15/17 09:38 Serum Total Protein 5.4 g/dL (6.4-8.9) L 10/15/17 05:30 Globulin 1.8 g/dL (2.4-3.5) L 10/15/17 05:30 - Microbiology Findings Microbiology Findings: Microbiology, Last 48 Hours 10/15/17 09:39 Blood Culture - Preliminary Peripheral Venipuncture No growth. 10/15/17 09:38 Blood Culture - Preliminary Peripheral Venipuncture No growth. 10/15/17 05:30 Blood Culture - Preliminary Peripheral Venipuncture No growth. 10/15/17 05:29 Blood Culture - Preliminary Peripheral Venipuncture No growth. - Clinical Findings Intake & Output: Intake & Output 10/17/17 10/17/17 10/17/17 07:59 15:59 23:59 Intake Total 600 / 600 Output Total 1400 / 1400 750 / 750 Balance -1380 / -1380 -150 / -150 - Attending Attestation - Attending Attestation I saw and evaluated this patient and my medical decision-making was reviewed with the Resident Physician. I agree with the documented findings, disposition and treatment plan as described except to the extent set forth below. We independently had [id number] contact with the patient Patient seen and examined at bedside Labs, radiology, chart personally reviewed. BUILDINGS AND GROUNDS COORDINATOR:Patient is awake following commands completely awake and oriented Pulm:Patient has lung cancer s/p lobectomy now coming with acute on chronic respiratory failure secondary to COPD exacerbation complicated by left lower lobe pneumonia mostly likely bacterial penumonia ,Patient was extubated yesterday had the BIPAP few hours overnight encouraged to use BIPAP in the night Cards:Hemodynamically stable now has some diastolic dysfunction with fluid overload in chest imaging to continue diuresis FEN-GI: Advance diet .intermittent BIPAP Renal:Labs reviewed and output reviewed ID:Patient has sepsis secondary to pneumonia plan to descalate antibiotics Heme/Onc:Patient prior history of Lung cancer and Colon cancer - Hematology labs reviewed Endo: Glucose Monitored Integ/MSK: Skin Care per routine ICU Nursing Protocol to prevent ulcers. Lines: All lines examined without evidence of infection : Dispo: Critically ill even if after extubation there is high chance of worsening respiratory failure needing reintubation CODE: Full Code
[2017-10-17] MEDS: Docusate Oral Soln 100 MG/10 ML UDC GTUBE SCH ×2 (08:48→21:24)
[2017-10-17] MEDS ORDERED: Dextrose Gel 15 GM/37.5 ML TUBE PO PRN ×2 (11:39)
[2017-10-17] MEDS ORDERED: Acetaminophen 325 MG TABLET PO PRN (11:39)
[2017-10-17] MEDS ORDERED: *HR* Dextrose 50 % in Water (Syg) 50 ML SYRINGE IVP PRN (11:39)
[2017-10-17] MEDS ORDERED: Naloxone 0.4 MG/ML INJ IVP PRN (11:39)
[2017-10-17] MEDS ORDERED: Ipratropium/Albuterol Neb 3 ML IH PRN (11:39)
[2017-10-18] MEDS ORDERED: Melatonin 3 MG TABLET PO PRN (01:18)
[2017-10-18 03:54] LABS: Immature Granulocytes % 0.7 % (0-4)
[2017-10-18 03:56] LABS: Hematocrit 37.5 % (37.5-50.1); Hemoglobin 12.7 g/dL (12.9-16.9); Immature Platelets 19.3 % (1.1-6.1); Lymphocytes # 0.6 K/mcL (0.6-4.6); Lymphocytes % 5.6 %; Mean Corpuscular HGB Conc 33.9 g/dL (31.6-35.5); Mean Corpuscular Hemoglobin 30.4 pg (28.0-33.3); Mean Corpuscular Volume 89.7 fL (83.0-100.0); Mean Platelet Volume 13.3 fL (9.4-12.4); Monocytes # 0.9 K/mcL (0.0-1.3); Neutrophils # 8.5 K/mcL (1.6-8.9); Red Blood Count 4.18 M/mcL (4.19-5.50); Red Cell Distribution Width 12.3 % (11.5-14.5); Segmented Neutrophils % 84.7 %
[2017-10-18 04:02] LABS: Platelet Count 98 K/mcL (140-400)
[2017-10-18 04:16] LABS: BUN/Creatinine Ratio 21 (6-26); Blood Urea Nitrogen 14 mg/dL (8-23); Calcium 8.4 mg/dL (8.6-10.3); Carbon Dioxide 27 mEq/L (23-29); Chloride 99 mEq/L (98-107); Glucose 124 mg/dL (70-105); Magnesium 2.2 mg/dL (1.6-2.6); Osmolality,Calculated 276 (280-300); Potassium 4.2 mEq/L (3.5-5.1); Sodium 132 mEq/L (136-145); eGFR For African Americans > 60 (> 60); eGFR For Non-African Americans > 60 (> 60)
[2017-10-18] MEDS: Ipratropium/Albuterol Neb 3 ML IH SCH ×4 (04:38→22:52)
[2017-10-18] MEDS: MethylPREDNISolone 40 MG/ML VIAL IVP SCH ×2 (06:11→17:12)
[2017-10-18] MEDS: Cefepime HCl 2,000 MG in Water for inj. (sterile) 20 ML 20 ML IVP SCH ×2 (06:12→17:12)
[2017-10-18] MEDS: *HR* Heparin 5,000 UNIT/ML VIAL SQ SCH ×3 (06:12→22:08)
[2017-10-18] MEDS: Docusate Oral Soln 100 MG/10 ML UDC GTUBE SCH (08:13)
[2017-10-18 08:22] LABS: Mycoplasma pneumoniae IgG 0.15 U/L (<=0.09)
--- NOTE | 2017-10-18 15:49 | Internal Med Progress Note ---
<Romulo Aragon - Last Filed: 10/18/17 15:58> Date of Encounter: 10/18/17 Time of Encounter: 10:00 - Assessment and plan (1) Acute exacerbation of chronic obstructive airways disease Current Visit: Yes Status: Acute Assessment and plan: - COPD exacerbation likely secondary to PNA as seen on CXR in ED - Requiring intubation on presentation, extubated on 10/16/17. Transferred from ICU on 10/17/17 - Currently tolerating 4L O2 via NC. - Viral panel showed mildly elevated mycolasma IgG, IgM negative. Likely unrelated. Plan - Continue Solumedrol 40mg Q12 hours for additional day with plan to decrease - Continue Duonebs, supplemental O2 as needed - Receiving cefepime for underlying PNA (2) Community acquired bacterial pneumonia Current Visit: Yes Status: Acute Assessment and plan: - CXR showing possible consolidation in LLL - Workup for COPD exacerbation and hypoxia as above. - Continue Cefepime, O2 PRN - No WBC, afebrile. (3) Acute respiratory failure with hypoxia Current Visit: Yes Status: Resolved Assessment and plan: Secondary to COPD exacerbation secondary to PNA as above - Tolerating 4 L O2 via NC this AM - Management as above (4) CAD (coronary artery disease) Current Visit: Yes Status: Chronic Assessment and plan: - No complaints of CP, - Continue home meds. Qualifiers: Coronary Disease-Associated Artery/Lesion type: [place] artery [place] vs. transplanted heart: [place] heart Associated angina: without angina Qualified Code(s): I25.10 - Atherosclerotic heart disease of [place] coronary artery without angina pectoris (5) Hypertension Current Visit: Yes Status: Chronic Assessment and plan: - Mildly elevated at 144/92 - Continue to monitor and continue home meds. Qualifiers: Hypertension type: essential hypertension Qualified Code(s): I10 - Essential (primary) hypertension (6) Tobacco use Current Visit: Yes Status: Chronic Assessment and plan: Discussion today about tobacco cessation. - He is down to 5 cigarettes and trying to quit - He was encouraged and congratulated on his progress. (7) DVT prophylaxis Current Visit: No Status: Acute Assessment and plan: Heparin 5000 units q8 hrs - Time Spent With Patient 25 - 35 minutes - Subjective Interval history: Patient was seen and examined at bedside this AM. He reports that he is doing much better compared to admission. States he does not use oxygen at home but did have it for a short period a couple years ago. Mild cough with green thick sputum. States he is attempting to quit smoking and is down to 5 cigarettes per day. Otherwise states he is doing well and ready to return home soon. - Constitutional Vitals: Temp Pulse Resp BP Pulse Ox 98.6 F 88 18 141/82 94 10/18/17 15:00 10/18/17 15:00 10/18/17 15:00 10/18/17 15:00 10/18/17 15:07 Exam: Gen.: Vitals noted. No acute distress. AAOx3. Sitting in bed comfortably. HEENT: PERRL/EOMI, oropharynx clear, Normocephalic, atraumatic, MMM Cardiac: RRR, no murmur, +S1/S2 Pulmonary: Moderate expiratory wheezes, absent sounds in LLL, equal chest expansion Abdomen: soft, nontender, BS noted, no guarding MSK: ROM intact, no joint swelling noted Extremities: no BLE edema, nontender calf, no cyanosis or clubbing Neuro: A&Ox3, moves all extremities, no focal deficits Psych: Appropriate mood and behavior Internal Medicine: Result - Labs CBC & Chem 7: 10/18/17 03:07 10/18/17 03:07 Labs: Short CBC 10/18/17 Range/Units 03:07 WBC 10.0 (4.3-11.1) K/mcL Hgb 12.7 L (12.9-16.9) g/dL Hct 37.5 (37.5-50.1) % Plt Count 98 L (140-400) K/mcL Neutrophils # 8.5 (1.6-8.9) K/mcL BMP 10/18/17 03:07 Sodium 132 L Potassium 4.2 Chloride 99 Carbon Dioxide 27 BUN 14 Creatinine 0.66 L Glucose 124 H Calcium 8.4 L - ABG Interpretation ABG results: ABG ABG pH 7.38 pH Units (7.32-7.45) 10/16/17 08:13 ABG pCO2 41 mmHg (35-45) 10/16/17 08:13 ABG pO2 77 mmHg (85-104) L 10/16/17 08:13 ABG O2 Saturation 95 % (95-98) 10/16/17 08:13 PT/INR, D-dimer PT 11.4 Seconds (9.4-12.1) 10/15/17 05:30 - VTE Documentation of Mechanical Device: Intermittent pneumatic compression device Consult Discharge Plan - Plan Referrals: Quin Palomares, [employer] [Advanced Practice Nurse] - 10/26/17 12:30 pm <Antonio Dunham - Last Filed: 10/18/17 18:05> Date of Encounter: 10/18/17 - Constitutional Vitals: Temp Pulse Resp BP Pulse Ox 98.6 F 88 18 141/82 96 10/18/17 15:00 10/18/17 15:00 10/18/17 15:51 10/18/17 15:00 10/18/17 15:51 Internal Medicine: Result - Labs CBC & Chem 7: 10/18/17 03:07 10/18/17 03:07 Labs: Short CBC 10/18/17 Range/Units 03:07 WBC 10.0 (4.3-11.1) K/mcL Hgb 12.7 L (12.9-16.9) g/dL Hct 37.5 (37.5-50.1) % Plt Count 98 L (140-400) K/mcL Neutrophils # 8.5 (1.6-8.9) K/mcL BMP 10/18/17 03:07 Sodium 132 L Potassium 4.2 Chloride 99 Carbon Dioxide 27 BUN 14 Creatinine 0.66 L Glucose 124 H Calcium 8.4 L - ABG Interpretation ABG results: ABG ABG pH 7.38 pH Units (7.32-7.45) 10/16/17 08:13 ABG pCO2 41 mmHg (35-45) 10/16/17 08:13 ABG pO2 77 mmHg (85-104) L 10/16/17 08:13 ABG O2 Saturation 95 % (95-98) 10/16/17 08:13 PT/INR, D-dimer PT 11.4 Seconds (9.4-12.1) 10/15/17 05:30 - Attending Attestation I examined this patient and my medical decision-making was reviewed with the Resident Physician. I agree with the documented findings, disposition and treatment plan as described except to the extent set forth below.
[2017-10-19] MEDS: Ipratropium/Albuterol Neb 3 ML IH SCH ×3 (04:12→15:57)
[2017-10-19 04:44] LABS: Mean Corpuscular Hemoglobin 30.5 pg (28.0-33.3); Red Cell Distribution Width 12.1 % (11.5-14.5)
[2017-10-19 04:46] LABS: Hemoglobin 12.7 g/dL (12.9-16.9); Immature Platelets 16.5 % (1.1-6.1); Mean Corpuscular HGB Conc 33.4 g/dL (31.6-35.5); Mean Corpuscular Volume 91.3 fL (83.0-100.0); Mean Platelet Volume 12.9 fL (9.4-12.4); Red Blood Count 4.16 M/mcL (4.19-5.50)
[2017-10-19 04:55] LABS: BUN/Creatinine Ratio 29 (6-26); Blood Urea Nitrogen 18 mg/dL (8-23); Calcium 8.4 mg/dL (8.6-10.3); Carbon Dioxide 27 mEq/L (23-29); Chloride 101 mEq/L (98-107); Glucose 102 mg/dL (70-105); Osmolality,Calculated 278 (280-300); Potassium 4.2 mEq/L (3.5-5.1); Sodium 133 mEq/L (136-145); eGFR For African Americans > 60 (> 60); eGFR For Non-African Americans > 60 (> 60)
[2017-10-19] MEDS: Cefepime HCl 2,000 MG in Water for inj. (sterile) 20 ML 20 ML IVP SCH (06:04)
[2017-10-19] MEDS: MethylPREDNISolone 40 MG/ML VIAL IVP SCH (06:04)
[2017-10-19] MEDS: *HR* Heparin 5,000 UNIT/ML VIAL SQ SCH (06:06)
[2017-10-19 06:50] VITALS: BP 136/79
--- NOTE | 2017-10-19 10:27 | Discharge Summary ---
<NikkiRomulo ortiz - Last Filed: 10/19/17 15:22> Date of Encounter: 10/19/17 Time of Encounter: 10:23 - Discharge Diagnosis (1) Acute exacerbation of chronic obstructive airways disease Priority: Primary Status: Acute (2) Community acquired bacterial pneumonia Priority: Secondary Status: Acute (3) Acute respiratory failure with hypoxia Priority: Secondary Status: Resolved (4) CAD (coronary artery disease) Priority: Secondary Status: Chronic Qualifiers: Coronary Disease-Associated Artery/Lesion type: [place] artery [place] vs. transplanted heart: [place] heart Associated angina: without angina Qualified Code(s): I25.10 - Atherosclerotic heart disease of [place] coronary artery without angina pectoris (5) Hypertension Priority: Secondary Status: Chronic Qualifiers: Hypertension type: essential hypertension Qualified Code(s): I10 - Essential (primary) hypertension (6) Tobacco use Priority: Secondary Status: Chronic (7) DVT prophylaxis Priority: Secondary Status: Acute - Discharge Medications Prescriptions: Cefdinir [Omnicef] 300 mg PO BID #4 capsule predniSONE [PredniSONE] See Taper PO DAILY #30 tablet Home Medications: Metoprolol [Lopressor] 25 mg PO BID 12/20/15 [History] [place]-3/Dha/Epa/Fish Oil [Fish Oil 1,000 mg Softgel] 1 each PO DAILY 12/20/15 [ History] Pravastatin Sodium [Pravachol] 40 mg PO HS 12/20/15 [History] Acetaminophen [Non-Aspirin] 650 mg PO HS PRN 10/17/17 [History] Albuterol Neb [Proventil Neb] 2.5 mg IH Q4HR PRN 10/17/17 [History] Cefdinir [Omnicef] 300 mg PO BID #4 capsule 10/19/17 [Rx] predniSONE [PredniSONE] See Taper PO DAILY #30 tablet 10/19/17 [Rx] Allergies/Adverse Reactions: 3 Allergy/AdvReac Type Severity Reaction Status Date / Time No Known Allergies Allergy Verified 10/17/17 12:06 Date of admission: 10/15/17 04:27 Primary care physician: Rosie Hilton CNP Consults: 10/15/17 04:57 Consult to Pulmonology [CONS] Routine Consulting Provider: Pulm Crit Care & Sleep Shalini Reason for Consult: sepsis, resp failure Call Completed: No 10/18/17 11:48 Consult to Nurse Navigator [CONS] Routine Comment: 10/18/17 13:45 Consult to Physical Therapy [CONS] Routine Comment: Evaluate, develop and implement POC Reason for Consult: Patient intubated and extubated in ICU, want to eval strength before home d/c OT [Consult to Occupational Therapy] [CONS] Routine Comment: Evaluate, develop and implement POC Reason for Consult: same as pt note Discharging clinician: Romulo Aragon Anticipated date of discharge: 10/19/17 - Patient Status Disposition: Home, Self-Care Condition: Good Functional capacity at discharge: independent ambulation Overall status at discharge: patient is progressing back to baseline - Discharge Instructions Follow Up With: Quin Palomares CNP [Advanced Practice Nurse] - 10/26/17 12:30 pm - Diet and Activity Activity: increase activity as tolerated, resume usual activities as tolerated Diet: advance to your usual diet Hospital course: Mr. Angulo is a 66 year old male with a PMHx of COPD, lung cancer s/p LLL lobectomy at 26,colon cancer s/p resection, HLD, HTN, [place] presented to ED with a complaint of SOB. He originally presented to [facility] but was transferred to [place]. En route, he experienced worsening SOB despite breathing treatments and had decreased responsivenes. He was intubated and admitted to ICU for COPD exacerbation secondary to PNA seen on CXR. Vitals on admission were wnl on ventilator. Labs showing Na of 129, BNP 372, ABG showing respiratory acidosis without compensation. During course of hospital stay, patient gradually improved. He was treated with Duonebs, Solumedrol, cefepime. He was successfully extubated on 10/16/17 and on day of discharge was tolerating room air without complaints. Labs returned to baseline levels. Vitals wnl. He will be discharged home in stable medical condition with a prescription of prednisone taper, omnicef. He was instructed to follow up with PCP within one week and take all medication as prescribed. We also recommend considering a pulmonology referral for COPD management as outpatient. - Time Spent with Patient Total time spent providing and/or coordinating discharge services: - Constitutional Vitals: Temp Pulse Resp BP Pulse Ox 98.2 F 89 15 136/79 92 10/19/17 06:47 10/19/17 06:47 10/19/17 06:47 10/19/17 06:47 10/19/17 06:47 - VTE Documentation of Mechanical Device: Intermittent pneumatic compression device <Antonio Dunham P - Last Filed: 10/19/17 16:30> Date of Encounter: 10/19/17 Date of admission: 10/15/17 04:27 Primary care physician: Rosie Hilton CNP Consults: 10/15/17 04:57 Consult to Pulmonology [CONS] Routine Consulting Provider: Pulm Crit Care & Sleep Shalini Reason for Consult: sepsis, resp failure Call Completed: No 10/18/17 11:48 Consult to Nurse Navigator [CONS] Routine Comment: 10/18/17 13:45 Consult to Physical Therapy [CONS] Routine Comment: Evaluate, develop and implement POC Reason for Consult: Patient intubated and extubated in ICU, want to eval strength before home d/c OT [Consult to Occupational Therapy] [CONS] Routine Comment: Evaluate, develop and implement POC Reason for Consult: same as pt note 10/19/17 11:34 Consult to Veneer Stacker [CONS] Stat Reason for SW Consult: pt is discharged and needs help with a respiratory medication. Hospital course: Mr. Angulo is a 66 year old male - Time Spent with Patient Total time spent providing and/or coordinating discharge services: - Constitutional Vitals: Temp Pulse Resp BP Pulse Ox 98.2 F 89 16 136/79 98 10/19/17 06:47 10/19/17 06:47 10/19/17 11:09 10/19/17 06:47 10/19/17 11:09 - Attending Attestation I examined this patient and my medical decision-making was reviewed with the Resident Physician. I agree with the documented findings, disposition and treatment plan as described except to the extent set forth below.
[2017-10-19] MEDS ORDERED: FLUARIX QUAD 2017-18 36MOS UP/PF 0.5 ML SYRINGE IM ONE (15:57)
== END 2017-10-19 16:38 | disposition home or self-care (01) | DRG 208 ==
LOC: ICNU 04:27 → 2NENU 10-17 19:27
PROVIDERS: ADMIT Internal Medicine; ATTEND Internal Medicine

== ENCOUNTER 2017-12-30 13:26 | Observation (INO) ==
[2017-12-30] MEDS ORDERED: Ipratropium/Albuterol Neb 3 ML IH ONE (13:34)
[2017-12-30] MEDS ORDERED: methylPREDNISolone 125 MG/2 ML VIAL IVP ONE (13:34)
[2017-12-30 13:54] LABS: VBG HCO3 20 mEq/L (21-27); VBG PCO2 31 mmHg (41-51); VBG PH 7.42 pH Units (7.32-7.42); VBG PO2 56 mmHg (25-50)
[2017-12-30 13:59] LABS: Basophils % 0.1 %; Hematocrit 44.8 % (37.5-50.1); Hemoglobin 15.9 g/dL (12.9-16.9); Immature Granulocytes % 0.8 % (0-4); Lymphocytes # 0.3 K/mcL (0.6-4.6); Lymphocytes % 3.9 %; Mean Corpuscular HGB Conc 35.5 g/dL (31.6-35.5); Mean Corpuscular Hemoglobin 30.8 pg (28.0-33.3); Mean Corpuscular Volume 86.8 fL (83.0-100.0); Mean Platelet Volume 12.2 fL (9.4-12.4); Monocytes # 0.3 K/mcL (0.0-1.3); Platelet Count 127 K/mcL (140-400); Red Blood Count 5.16 M/mcL (4.19-5.50); Red Cell Distribution Width 12.5 % (11.5-14.5); Segmented Neutrophils % 92.2 %
[2017-12-30 14:14] LABS: BUN/Creatinine Ratio 12 (6-26); Blood Urea Nitrogen 12 mg/dL (8-23); Calcium 9.2 mg/dL (8.6-10.3); Carbon Dioxide 21 mEq/L (23-29); Chloride 99 mEq/L (98-107); Glucose 146 mg/dL (70-105); Osmolality,Calculated 274 (280-300); Sodium 131 mEq/L (136-145); eGFR For African Americans > 60 (> 60); eGFR For Non-African Americans > 60 (> 60)
[2017-12-30 14:15] LABS: Troponin I < 0.03 ng/mL (< 0.04)
[2017-12-30] MEDS ORDERED: Isovue-370 500 ML INFUS..BTL IV ONE (14:29)
--- NOTE | 2017-12-30 14:29 | Emergency Department Note ---
Disposition Clinical Impression: Acute exacerbation of chronic obstructive airways disease Disposition: Admitted As Inpatient Condition: Fair Time of Disposition: 15:44 SOB HPI - General Chief Complaint: ED Shortness of Breath/Dyspnea Stated Complaint: DWIGHT Time Seen by Provider: 12/30/17 13:30 Source: patient Limitations: no limitations Nursing Notes Reviewed: Yes Vital Signs Reviewed: Yes - History of Present Illness Patient is a 67-year-old male who presents to [facility] ED with a chief complaint of difficulty breathing. States he has had ongoing issues with his respiratory status ever since July. He has been hospitalized back in July as well as in September for COPD exacerbation and pneumonia. Patient states he was recently seen in the emergency department for similar issues but was able to go home. He then followed up with his primary care physician last Sunday who placed him on a course of Levaquin and steroids. Patient states he has continued to get worse despite using his breathing treatments every 6 hours. Past medical history significant for COPD, CAD, prior lung cancer. Pt Subjective Complaint: shortness of breath Onset (ago): week(s) Context: occurred during exertion Severity: moderate Consistency/Duration: gradually worsening Improves with: nothing Worsens with: exertion Known history of: COPD Associated symptoms: Reports: cough. Denies: chest pain, fever, wheezing, nausea/vomiting, abdominal pain Cough present: Yes Cough Frequency: Intermittent Sputum production: Yes Sputum Amount: Scant - Related Data Home oxygen amount: none Home Medications Medication Instructions Recorded Confirmed Metoprolol [Lopressor] 25 mg PO BID 12/20/15 10/17/17 [place]-3/Dha/Epa/Fish Oil [Fish Oil 1 each PO DAILY 12/20/15 10/17/17 1,000 mg Softgel] Pravastatin Sodium [Pravachol] 40 mg PO HS 12/20/15 10/17/17 Acetaminophen [Non-Aspirin] 650 mg PO HS PRN 10/17/17 10/17/17 Albuterol Neb [Proventil Neb] 2.5 mg IH Q4HR PRN 10/17/17 10/17/17 Budesonide/Formoterol 160/4.5 2 puff IH BIDR 12/30/17 12/30/17 [Symbicort 160/4.5] Ergocalciferol (VITAMIN D2) 50,000 unit PO QWEEK 12/30/17 12/30/17 [Vitamin D2] Fluticasone Propionate Nasal 1 spr NS DAILY 12/30/17 12/30/17 [Flonase] Levofloxacin [Levaquin] 750 mg PO DAILY 12/30/17 12/30/17 Allergies Allergy/AdvReac Type Severity Reaction Status Date / Time No Known Allergies Allergy Verified 12/30/17 13:29 All systems ED: reviewed and negative except as stated. Past Medical History - Past Medical History Attestation: Yes The following information was validated with the patient. Source: patient Medical history: Reports: cancer, COPD, coronary artery disease, hyperlipidemia , hypertension, myocardial infarction Surgical history: Reports: pacemaker/AICD, other Psychiatric history: Reports: anxiety, depression - Social History Smoking Status: Current every day smoker Smokeless Tobacco Status: No Alcohol use: Reports: rarely Drug use: Reports: none Physical Exam - General Limitations: no limitations General appearance: alert, in no apparent distress - Head Head exam: atraumatic, normocephalic, normal inspection - Eye Eye exam: Present: normal appearance, PERRL, EOMI - ENT ENT exam: normal exam, normal oropharynx, mucous membranes moist - Neck Neck exam: Present: normal inspection, full ROM, trachea midline - Chest Chest inspection: Present: normal inspection, symmetric chest wall rise - Respiratory Respiratory exam: Present: wheezes (b/l, decreased breath sounds bilaterally) - Cardiovascular Cardiovascular exam: Present: regular rate, normal rhythm, normal heart sounds - Abdominal Exam Abdominal exam: Present: soft, Non-Tender. Absent: tenderness, distention, guarding, rebound, rigidity - Extremities Exam Extremities exam: Present: normal inspection, full ROM. Absent: tenderness, pedal edema - Neurological Exam Neurological exam: Present: alert, oriented X3 - Psychiatric Psychiatric exam: Present: normal affect, normal mood - Skin Skin exam: Present: warm, dry, intact, normal color Course Course Narrative: Patient seen and examined. Difficulty breathing, with history of COPD. Upon my exam, patient is wheezing diffusely. He does not move air very easily. Respiratory therapy was called and he was given 3 DuoNeb treatments along with 125 mg Solu-Medrol. Cardiopulmonary workup was initiated. - Reevaluation(s) Reevaluation #1: Patient states he feels much better after receiving the breathing treatments. He is able to cough up a little mucus now. At rest, his oxygen saturation is around 90% on room air. Upon reexamination, patient is still very tight bilaterally. I discussed with hospitalist Dr. Matias who has accepted patient for admission. Time: 15:44 Vital Signs Temperature 97.9 F 12/30/17 13:27 Pulse Rate 98 12/30/17 13:27 Respiratory Rate 18 12/30/17 13:27 Blood Pressure 166/90 12/30/17 13:27 O2 Sat by Pulse Oximetry 94 12/30/17 13:27 Temperature 97.9 F 12/30/17 13:27 Pulse Rate 98 12/30/17 13:27 Respiratory Rate 18 12/30/17 13:43 Blood Pressure 166/90 12/30/17 13:27 O2 Sat by Pulse Oximetry 93 12/30/17 13:43 Oxygen Delivery Oxygen Delivery Room Air Shortness of Breath/Dyspnea - Medical Records Medical records reviewed: Yes I reviewed the patient's medical records. - Lab Data Lab results reviewed: Yes I reviewed the patient's lab results. Result diagrams: 12/30/17 13:34 12/30/17 13:34 Lab Results 12/30/17 12/30/17 12/30/17 Range/Units 13:34 13:34 13:34 WBC 8.7 (4.3-11.1) K/mcL RBC 5.16 (4.19-5.50) M/mcL Hgb 15.9 (12.9-16.9) g/dL Hct 44.8 (37.5-50.1) % MCV 86.8 (83.0-100.0) fL MCH 30.8 (28.0-33.3) pg MCHC 35.5 (31.6-35.5) g/dL RDW 12.5 (11.5-14.5) % Plt Count 127 L (140-400) K/mcL MPV 12.2 (9.4-12.4) fL Immature Gran % 0.8 (0-4) % Seg Neutrophils % 92.2 % Lymphocytes % 3.9 % Monocytes % 3.0 % Eosinophils % 0.0 % Basophils % 0.1 % Neutrophils # 8.0 (1.6-8.9) K/mcL Lymphocytes # 0.3 L (0.6-4.6) K/mcL Monocytes # 0.3 (0.0-1.3) K/mcL Eosinophils # 0.0 (0.0-0.6) K/mcL Basophils # 0.0 (0.0-0.2) K/mcL VBG pH (7.32-7.42) pH Units VBG pCO2 (41-51) mmHg VBG pO2 (25-50) mmHg VBG HCO3 (21-27) mEq/L Sodium 131 L (136-145) mEq/L Potassium 4.0 (3.5-5.1) mEq/L Chloride 99 (98-107) mEq/L Carbon Dioxide 21 L (23-29) mEq/L BUN 12 (8-23) mg/dL Creatinine 1.02 (0.70-1.30) mg/dL Est GFR ( Amer) > 60 (> 60) Est GFR (Non-Af Amer) > 60 (> 60) BUN/Creatinine Ratio 12 (6-26) Glucose 146 H (70-105) mg/dL Calculated Osmolality 274 L (280-300) Lactic Acid 3.4 H (0.5-2.2) mmol/L Calcium 9.2 (8.6-10.3) mg/dL Troponin I < 0.03 (< 0.04) ng/mL B-Natriuretic Peptide (Less than 100) pg/mL 12/30/17 12/30/17 Range/Units 13:34 13:51 WBC (4.3-11.1) K/mcL RBC (4.19-5.50) M/mcL Hgb (12.9-16.9) g/dL Hct (37.5-50.1) % MCV (83.0-100.0) fL MCH (28.0-33.3) pg MCHC (31.6-35.5) g/dL RDW (11.5-14.5) % Plt Count (140-400) K/mcL MPV (9.4-12.4) fL Immature Gran % (0-4) % Seg Neutrophils % % Lymphocytes % % Monocytes % % Eosinophils % % Basophils % % Neutrophils # (1.6-8.9) K/mcL Lymphocytes # (0.6-4.6) K/mcL Monocytes # (0.0-1.3) K/mcL Eosinophils # (0.0-0.6) K/mcL Basophils # (0.0-0.2) K/mcL VBG pH 7.42 (7.32-7.42) pH Units VBG pCO2 31 L (41-51) mmHg VBG pO2 56 H (25-50) mmHg VBG HCO3 20 L (21-27) mEq/L Sodium (136-145) mEq/L Potassium (3.5-5.1) mEq/L Chloride (98-107) mEq/L Carbon Dioxide (23-29) mEq/L BUN (8-23) mg/dL Creatinine (0.70-1.30) mg/dL Est GFR ( Amer) (> 60) Est GFR (Non-Af Amer) (> 60) BUN/Creatinine Ratio (6-26) Glucose (70-105) mg/dL Calculated Osmolality (280-300) Lactic Acid (0.5-2.2) mmol/L Calcium (8.6-10.3) mg/dL Troponin I (< 0.04) ng/mL B-Natriuretic Peptide 148 H (Less than 100) pg/mL - Radiology Data Radiology results reviewed: Yes I reviewed the patient's radiology results. Chest X-Ray 12/30/17 13:34 IMPRESSION: Stable chest. No acute cardiopulmonary abnormality. D/ / Seema Dominique MD / Seema Dominique MD Interpreting Provider: Seema Dominique MD - EKG Data EKG attestation: Yes I reviewed and interpreted this EKG. EKG results narrative: EKG done at 1354 shows ventricular paced rhythm with a rate of [address] elevation. Mild ST depression in leads V5 and V6. Inverted T waves in leads 1 and aVL. Appears unchanged from prior EKG done on 08/01/2017.
[2017-12-30] MEDS ORDERED: 0.9 % Sodium Chloride 1,000 ML IVC ONE ×2 (14:41→16:29)
--- NOTE | 2017-12-30 14:51 | Emergency Department Note ---
Disposition Clinical Impression: COPD exacerbation, Exertional dyspnea Disposition: Still a Patient Forms: ED Satisfaction Letter General Adult HPI - General Chief complaint: ED Shortness of Breath/Dyspnea Stated complaint: DWIGHT Time Seen by Provider: 12/30/17 13:30 Source: patient Limitations: no limitations - History of Present Illness Pain Scale: 0 - Related Data Home Medications Medication Instructions Recorded Confirmed Metoprolol [Lopressor] 25 mg PO BID 12/20/15 10/17/17 [place]-3/Dha/Epa/Fish Oil [Fish Oil 1 each PO DAILY 12/20/15 10/17/17 1,000 mg Softgel] Pravastatin Sodium [Pravachol] 40 mg PO HS 12/20/15 10/17/17 Acetaminophen [Non-Aspirin] 650 mg PO HS PRN 10/17/17 10/17/17 Albuterol Neb [Proventil Neb] 2.5 mg IH Q4HR PRN 10/17/17 10/17/17 Previous Rx's Medication Instructions Recorded Cefdinir [Omnicef] 300 mg PO BID #4 capsule 10/19/17 predniSONE [PredniSONE] See Taper PO DAILY #30 tablet 10/19/17 Allergies Allergy/AdvReac Type Severity Reaction Status Date / Time No Known Allergies Allergy Verified 12/30/17 13:29 Past Medical History - Past Medical History Medical history: Reports: cancer, COPD, coronary artery disease, hyperlipidemia , hypertension, myocardial infarction Surgical history: Reports: pacemaker/AICD, other Psychiatric history: Reports: anxiety, depression - Social History Smoking Status: Current every day smoker Smokeless Tobacco Status: No Alcohol use: Reports: rarely Drug use: Reports: none Physical Exam - General Limitations: no limitations General appearance: alert, in no apparent distress Course Vital Signs Temperature 97.9 F 12/30/17 13:27 Pulse Rate 98 12/30/17 13:27 Respiratory Rate 18 12/30/17 13:27 Blood Pressure 166/90 12/30/17 13:27 O2 Sat by Pulse Oximetry 94 12/30/17 13:27 Temperature 97.9 F 12/30/17 13:27 Pulse Rate 98 12/30/17 13:27 Respiratory Rate 18 12/30/17 13:43 Blood Pressure 166/90 12/30/17 13:27 O2 Sat by Pulse Oximetry 93 12/30/17 13:43 Oxygen Delivery Oxygen Delivery Room Air Medical Decision Making - Lab Data Result diagrams: 12/30/17 13:34 12/30/17 13:34 Lab Results 12/30/17 12/30/17 12/30/17 Range/Units 13:34 13:34 13:34 WBC 8.7 (4.3-11.1) K/mcL RBC 5.16 (4.19-5.50) M/mcL Hgb 15.9 (12.9-16.9) g/dL Hct 44.8 (37.5-50.1) % MCV 86.8 (83.0-100.0) fL MCH 30.8 (28.0-33.3) pg MCHC 35.5 (31.6-35.5) g/dL RDW 12.5 (11.5-14.5) % Plt Count 127 L (140-400) K/mcL MPV 12.2 (9.4-12.4) fL Immature Gran % 0.8 (0-4) % Seg Neutrophils % 92.2 % Lymphocytes % 3.9 % Monocytes % 3.0 % Eosinophils % 0.0 % Basophils % 0.1 % Neutrophils # 8.0 (1.6-8.9) K/mcL Lymphocytes # 0.3 L (0.6-4.6) K/mcL Monocytes # 0.3 (0.0-1.3) K/mcL Eosinophils # 0.0 (0.0-0.6) K/mcL Basophils # 0.0 (0.0-0.2) K/mcL VBG pH (7.32-7.42) pH Units VBG pCO2 (41-51) mmHg VBG pO2 (25-50) mmHg VBG HCO3 (21-27) mEq/L Sodium 131 L (136-145) mEq/L Potassium 4.0 (3.5-5.1) mEq/L Chloride 99 (98-107) mEq/L Carbon Dioxide 21 L (23-29) mEq/L BUN 12 (8-23) mg/dL Creatinine 1.02 (0.70-1.30) mg/dL Est GFR ( Amer) > 60 (> 60) Est GFR (Non-Af Amer) > 60 (> 60) BUN/Creatinine Ratio 12 (6-26) Glucose 146 H (70-105) mg/dL Calculated Osmolality 274 L (280-300) Lactic Acid 3.4 H (0.5-2.2) mmol/L Calcium 9.2 (8.6-10.3) mg/dL Troponin I < 0.03 (< 0.04) ng/mL B-Natriuretic Peptide (Less than 100) pg/mL 12/30/17 12/30/17 Range/Units 13:34 13:51 WBC (4.3-11.1) K/mcL RBC (4.19-5.50) M/mcL Hgb (12.9-16.9) g/dL Hct (37.5-50.1) % MCV (83.0-100.0) fL MCH (28.0-33.3) pg MCHC (31.6-35.5) g/dL RDW (11.5-14.5) % Plt Count (140-400) K/mcL MPV (9.4-12.4) fL Immature Gran % (0-4) % Seg Neutrophils % % Lymphocytes % % Monocytes % % Eosinophils % % Basophils % % Neutrophils # (1.6-8.9) K/mcL Lymphocytes # (0.6-4.6) K/mcL Monocytes # (0.0-1.3) K/mcL Eosinophils # (0.0-0.6) K/mcL Basophils # (0.0-0.2) K/mcL VBG pH 7.42 (7.32-7.42) pH Units VBG pCO2 31 L (41-51) mmHg VBG pO2 56 H (25-50) mmHg VBG HCO3 20 L (21-27) mEq/L Sodium (136-145) mEq/L Potassium (3.5-5.1) mEq/L Chloride (98-107) mEq/L Carbon Dioxide (23-29) mEq/L BUN (8-23) mg/dL Creatinine (0.70-1.30) mg/dL Est GFR ( Amer) (> 60) Est GFR (Non-Af Amer) (> 60) BUN/Creatinine Ratio (6-26) Glucose (70-105) mg/dL Calculated Osmolality (280-300) Lactic Acid (0.5-2.2) mmol/L Calcium (8.6-10.3) mg/dL Troponin I (< 0.04) ng/mL B-Natriuretic Peptide 148 H (Less than 100) pg/mL Attestation Statement - Attestation Attestation: I examined this patient and my medical decision-making was reviewed with the Resident Physician. I agree with the documented findings, disposition and treatment plan as described except to the extent set forth below. 67 year old male prsente to the eD with complaints of DWIGHT and has a history of COPD without need for supplemental oxygen therapy but has been experincingin increased exertional dyspnea and states that he cannot walk more than 5-10 feet without becoming incraesingly dyspniec, although he is not hypoxic. HE has an elevated lactic acid as well. WE will obtain a CTA chest and then admit to medicine.
[2017-12-30] MEDS ORDERED: Acetaminophen 325 MG TABLET PO ONE (15:01)
[2017-12-30] MEDS ORDERED: Albuterol 2.5 MG/3 ML NEBULIZER IH PRN (16:35)
[2017-12-30] MEDS ORDERED: Acetaminophen 325 MG TABLET PO PRN (16:43)
[2017-12-30] MEDS ORDERED: 0.9 % Sodium Chloride 1,000 ML IVC SCH (16:45)
[2017-12-30] MEDS: Cefepime HCl 1,000 MG in Water for inj. (sterile) 20 ML 10 ML IVP SCH (17:18)
[2017-12-30] MEDS: Doxycycline 100 MG in 0.9 % Sodium Chloride Mini Bag 100 ML IVPB SCH (17:18)
--- NOTE | 2017-12-30 18:23 | Internal Med History&Physical ---
Date of Encounter: 12/30/17 Time of Encounter: 18:20 Internal Medicine - H&P: HPI Chief complaint: SOB History of present illness: Mr. Angulo is a 67 year old male history of COPD was also complaining of shortness of breath. Patient is she has had coughing and increased sputum production. Patient notes he was recently in the hospital and discharged on oral antibiotics and steroids. Patient notes he took medications as prescribed. Patient notes that he had some increasing shortness of breath but felt as if he could not bring up the sputum. Patient denies fever, chills or rigors. He denies substernal chest pain palpitations or diaphoresis. Patient notes she was seen by his neon pumper recently. Patient notes she is scheduled to have pulmonary function tests on the of this month. At this time patient denies abdominal pain, nausea and vomiting. He denies dysuria or diarrhea. He denies headache, visual disturbance, focal weakness. Patient to be admitted for further evaluation. Past Med Surg Social Fam HX - Past Medical History Medical history: cancer, COPD, coronary artery disease, hyperlipidemia, hypertension, myocardial infarction Psychiatric history: anxiety, depression - Past Surgical History Surgical History: pacemaker/AICD, other - Social History Smoking Status: Current every day smoker Smokeless Tobacco Status: No Alcohol use: rarely Drug use: none - Family History Mother Hx Family Cancer: Yes (Breast) Internal Medicine - H&P: Meds Metoprolol [Lopressor] 25 mg PO BID 12/20/15 [History] [place]-3/Dha/Epa/Fish Oil [Fish Oil 1,000 mg Softgel] 1 each PO DAILY 12/20/15 [ History] Pravastatin Sodium [Pravachol] 40 mg PO HS 12/20/15 [History] Acetaminophen [Non-Aspirin] 650 mg PO HS PRN 10/17/17 [History] Albuterol Neb [Proventil Neb] 2.5 mg IH Q4HR PRN 10/17/17 [History] Budesonide/Formoterol 160/4.5 [Symbicort 160/4.5] 2 puff IH BIDR 12/30/17 [ History] Ergocalciferol (VITAMIN D2) [Vitamin D2] 50,000 unit PO QWEEK 12/30/17 [History] Fluticasone Propionate Nasal [Flonase] 1 spr NS DAILY 12/30/17 [History] Levofloxacin [Levaquin] 750 mg PO DAILY 12/30/17 [History] 3 Allergy/AdvReac Type Severity Reaction Status Date / Time No Known Allergies Allergy Verified 12/30/17 13:29 All Systems PM: A 10-system review of systems was performed and is negative for pertinent findings except as documented above in the HPI. Review of systems: All systems have been reviewed and negative except for what is mentioned in history present illness - Constitutional Vitals: Temp Pulse Resp BP Pulse Ox 98.0 F 96 14 152/86 98 12/30/17 16:51 12/30/17 16:51 12/30/17 16:51 12/30/17 16:51 12/30/17 16:51 Vital signs as above Gen.: No apparent distress, cooperative, able to speak in full senses HEENT: Atraumatic, normocephalic, extra movements are intact, PERRL, there is no scleral icterus Neck: No JVD no pain to palpation, full range of motion Heart: Normal S1-S2, regular rate and rhythm Lungs: Clear to auscultation Abdomen: Soft, depressible, nontender, nondistended, positive bowel sounds, no guarding, no rigidity Musculoskeletal: Patient moves all 4 extremities freely, no pain to palpation of large joints, no calf tenderness, no pedal edema Neuro: Nonfocal, cranial nerves are intact Psychiatry: Normal affect Skin: Intact Internal Med - H&P Results - Labs CBC & Chem 7: 12/30/17 13:34 12/30/17 18:25 - Assessment and plan (1) Acute exacerbation of chronic obstructive airways disease Current Visit: Yes Status: Acute Assessment and plan: Acute COPD exacerbation. Patient notes cough on able to produce sputum. CTA negative for pulmonary embolism, no acute infiltrate noted Patient to be treated for acute on possibly chronic bronchitis Cefepime, doxycycline, bronchodilators, Solu-Medrol Patient may require [facility] consultation to consider bronchoscopy Patient notes he has pulmonary function tests scheduled for the of this month (2) Hypertension Current Visit: No Status: Chronic Assessment and plan: Continue home medications, adjust as needed Qualifiers: Hypertension type: essential hypertension Qualified Code(s): I10 - Essential (primary) hypertension (3) DVT prophylaxis Current Visit: No Status: Acute Assessment and plan: SCDs for VTE prophylaxis (4) Hyponatremia Current Visit: No Status: Chronic Assessment and plan: Etiology to be determined. Appears euvolemic with some history of decreased PO intake. Will repeat CMP,urine osmo, serum osmol, urine sodium - Time Spent With Patient Total time spent is greater than 50% in coordination of care (as documented) at patient's floor/unit and/or counseling patient:
[2017-12-30 18:40] LABS: Adenovirus Not Detected (Not Detect); Bordetella Pertussis Not Detected (Not Detect); Chlamydophila pneumoniae Not Detected (Not Detect); Coronavirus 229E Not Detected (Not Detect); Coronavirus HKU1 Not Detected (Not Detect); Coronavirus NL63 Not Detected (Not Detect); Coronavirus OC43 Not Detected (Not Detect); Human Metapneumovirus Not Detected (Not Detect); Human Rhinovirus/Enterovirus Not Detected (Not Detect); Influenza A Subtype 2009 H1 Not Detected (Not Detect); Influenza A Untypeable Not Detected (Not Detect); Influenza B Not Detected (Not Detect); Mycoplasma pneumoniae Not Detected (Not Detect); Parainfluenza Virus 1 Not Detected (Not Detect); Parainfluenza Virus 2 Not Detected (Not Detect); Parainfluenza Virus 3 Not Detected (Not Detect); Parainfluenza Virus 4 Not Detected (Not Detect); Respiratory Syncytial Virus Not Detected (Not Detect)
[2017-12-30 18:53] LABS: Alanine Aminotransferase 14 Units/L (7-52); Albumin 3.9 g/dL (3.5-5.7); Alkaline Phosphatase 49 Units/L (34-104); Aspartate Amino Transferase 14 Units/L (13-39); BUN/Creatinine Ratio 13 (6-26); Blood Urea Nitrogen 12 mg/dL (8-23); Calcium 8.4 mg/dL (8.6-10.3); Carbon Dioxide 21 mEq/L (23-29); Chloride 101 mEq/L (98-107); Glucose 256 mg/dL (70-105); Osmolality,Calculated 279 (280-300); Potassium 4.2 mEq/L (3.5-5.1); Sodium 130 mEq/L (136-145); Total Protein 5.9 g/dL (6.4-8.9); eGFR For African Americans > 60 (> 60); eGFR For Non-African Americans > 60 (> 60)
[2017-12-30 19:01] LABS: Troponin I < 0.03 ng/mL (< 0.04)
[2017-12-30] MEDS: Ipratropium/Albuterol Neb 3 ML IH SCH ×3 (20:02→23:33)
[2017-12-30] MEDS: Budesonide/Formoterol 160/4.5 MDI IH SCH (20:03)
[2017-12-31] MEDS: methylPREDNISolone 125 MG/2 ML VIAL IVP SCH ×3 (00:21→17:31)
[2017-12-31] MEDS: Ipratropium/Albuterol Neb 3 ML IH SCH ×6 (03:41→23:56)
[2017-12-31 05:36] LABS: Hematocrit 39.3 % (37.5-50.1); Immature Granulocytes % 0.9 % (0-4); Lymphocytes # 0.4 K/mcL (0.6-4.6); Lymphocytes % 5.7 %; Mean Corpuscular HGB Conc 35.1 g/dL (31.6-35.5); Mean Corpuscular Hemoglobin 31.3 pg (28.0-33.3); Mean Corpuscular Volume 89.1 fL (83.0-100.0); Mean Platelet Volume 11.9 fL (9.4-12.4); Monocytes # 0.2 K/mcL (0.0-1.3); Monocytes % 2.2 %; Neutrophils # 6.1 K/mcL (1.6-8.9); Red Blood Count 4.41 M/mcL (4.19-5.50); Red Cell Distribution Width 12.4 % (11.5-14.5); Segmented Neutrophils % 91.2 %
[2017-12-31 05:38] LABS: Hemoglobin 13.8 g/dL (12.9-16.9); Platelet Count 98 K/mcL (140-400)
[2017-12-31] MEDS: Cefepime HCl 1,000 MG in Water for inj. (sterile) 20 ML 10 ML IVP SCH ×2 (05:42→17:30)
[2017-12-31] MEDS: Doxycycline 100 MG in 0.9 % Sodium Chloride Mini Bag 100 ML IVPB SCH ×2 (05:42→17:31)
[2017-12-31 05:56] LABS: Alanine Aminotransferase 13 Units/L (7-52); Albumin 3.5 g/dL (3.5-5.7); Albumin/Globulin Ratio 1.8 (1.1-2.2); Alkaline Phosphatase 43 Units/L (34-104); Aspartate Amino Transferase 12 Units/L (13-39); BUN/Creatinine Ratio 15 (6-26); Bilirubin,Total 0.8 mg/dL (0.3-1.0); Blood Urea Nitrogen 11 mg/dL (8-23); Calcium 8.4 mg/dL (8.6-10.3); Carbon Dioxide 24 mEq/L (23-29); Chloride 103 mEq/L (98-107); Glucose 141 mg/dL (70-105); Osmolality,Calculated 278 (280-300); Potassium 3.9 mEq/L (3.5-5.1); Sodium 133 mEq/L (136-145); Total Protein 5.5 g/dL (6.4-8.9); eGFR For African Americans > 60 (> 60); eGFR For Non-African Americans > 60 (> 60)
[2017-12-31] MEDS: Budesonide/Formoterol 160/4.5 MDI IH SCH ×2 (08:05→19:54)
[2017-12-31] MEDS: Fluticasone Propionate Nasal 50 MCG/SPRAY BOTTLE NS SCH (09:20)
--- NOTE | 2017-12-31 09:23 | Internal Med Progress Note ---
Date of Encounter: 12/31/17 Time of Encounter: 08:50 - Assessment and plan (1) Acute exacerbation of chronic obstructive airways disease Current Visit: Yes Status: Acute Assessment and plan: Continue current treatment with steroids, antibiotics and bronchodilators. Continue O2 supplementation as needed. Will check for O2 qualification with ambulation. Moderate risk for complications. (2) Hypertension Current Visit: Yes Status: Chronic Assessment and plan: Blood pressure remains well controlled. Qualifiers: Hypertension type: essential hypertension Qualified Code(s): I10 - Essential (primary) hypertension (3) Hyponatremia Current Visit: Yes Status: Chronic Assessment and plan: Sodium 133 today. Will follow (4) DVT prophylaxis Current Visit: Yes Status: Acute Assessment and plan: With subcutaneous heparin - Time Spent With Patient Total time spent is greater than 50% in coordination of care (as documented) at patient's floor/unit and/or counseling patient: - Subjective Interval history: Patient continues to have shortness of breath. Especially with minimal exertion. He is currently on room air while at rest. Denies any chest pain. Does have cough and is now having sputum production. No fever or chills reported overnight - Constitutional Vitals: Temp Pulse Resp BP Pulse Ox 97.7 F 89 18 118/65 94 12/31/17 06:55 12/31/17 06:55 12/31/17 08:07 12/31/17 06:55 12/31/17 08:07 General appearance: Present: cooperative, mild distress, A&O X 3, answers questions appropriately - Neck Neck exam general surgery: Present: supple, trachea midline. Absent: lymphadenopathy - Respiratory Respiratory exam: Present: decreased breath sounds (Diminished breath sounds bilaterally), prolonged expiratory phase, wheezes. Absent: accessory muscle use , rales, rhonchi - Cardiovascular Cardiovascular exam: Present: RRR, +S1, +S2. Absent: diastolic murmur, gallop, rubs, systolic murmur - GI/Abdominal GI/Abdominal exam: Present: normal bowel sounds, soft, no peritoneal signs. Absent: distended, tenderness - Extremities Exam Extremities exam: Present: warm, radial pulses palpable and symmetrical. Absent : calf tenderness, cyanotic, pedal edema - Neurological Exam Neurological exam: Present: CN II-XII intact, oriented X3, no focal deficits. Absent: facial droop, speech deficit Internal Medicine: Result - Labs CBC & Chem 7: 12/31/17 05:24 12/31/17 05:24 Labs: Short CBC 12/31/17 Range/Units 05:24 WBC 6.7 (4.3-11.1) K/mcL Hgb 13.8 D (12.9-16.9) g/dL Hct 39.3 (37.5-50.1) % Plt Count 98 L (140-400) K/mcL Neutrophils # 6.1 (1.6-8.9) K/mcL BMP 12/30/17 12/31/17 18:25 05:24 Sodium 130 L 133 L Potassium 4.2 3.9 Chloride 101 103 Carbon Dioxide 21 L 24 BUN 12 11 Creatinine 0.96 0.75 Glucose 256 H 141 H Calcium 8.4 L 8.4 L Cardiac Enzymes 12/30/17 Range/Units 18:25 Troponin I < 0.03 (< 0.04) ng/mL Liver Function 12/30/17 12/31/17 Range/Units 18:25 05:24 Total Bilirubin 1.0 0.8 (0.3-1.0) mg/dL AST 14 12 L (13-39) Units/L ALT 14 13 (7-52) Units/L Alkaline Phosphatase 49 43 (34-104) Units/L Albumin 3.9 3.5 (3.5-5.7) g/dL Consult Discharge Plan - Plan Referrals: Quin Palomares, [employer] [Primary Care Provider] -
[2017-12-31] MEDS ORDERED: GuaiFENesin Liq 200 MG/10 ML UDC PO PRN (16:37)
[2018-01-01] MEDS: methylPREDNISolone 125 MG/2 ML VIAL IVP SCH (01:48)
[2018-01-01] MEDS: Ipratropium/Albuterol Neb 3 ML IH SCH ×3 (03:45→11:29)
[2018-01-01] MEDS: Cefepime HCl 1,000 MG in Water for inj. (sterile) 20 ML 10 ML IVP SCH (06:35)
[2018-01-01] MEDS: Doxycycline 100 MG in 0.9 % Sodium Chloride Mini Bag 100 ML IVPB SCH (06:36)
[2018-01-01] MEDS: Budesonide/Formoterol 160/4.5 MDI IH SCH (08:01)
[2018-01-01] MEDS: Fluticasone Propionate Nasal 50 MCG/SPRAY BOTTLE NS SCH (08:31)
[2018-01-01] MEDS ORDERED: predniSONE 20 MG TABLET PO SCH (09:00)
--- NOTE | 2018-01-01 10:16 | Discharge Summary ---
- NOTES TO OUTPATIENT PROVIDER Notes to Outpatient Provider: Patient admitted with COPD exacerbation. Being discharged on prednisone taper and antibiotics. Orders not resulted at time of discharge: Pending orders 12/30/17 17:18 Culture,Throat [RM] Routine Streptococcus A Rapid Test [RM] Routine Date of Encounter: 01/01/18 Time of Encounter: 10:16 - Discharge Diagnosis (1) Acute exacerbation of chronic obstructive airways disease Priority: Primary Status: Acute (2) Hypertension Priority: Secondary Status: Chronic Qualifiers: Hypertension type: essential hypertension Qualified Code(s): I10 - Essential (primary) hypertension (3) Hyponatremia Priority: Secondary Status: Chronic (4) DVT prophylaxis Priority: Secondary Status: Acute Hospital course: Mr. Angulo is a 67 year old male patient with history of COPD he was hospitalized here with acute COPD exacerbation. CT scan of the chest showed [id number] emphysematous changes with chronic scarring and volume loss in the left lung. Patient was treated with steroids, bronchodilators and antibiotics with slow improvement in his symptoms. He is now feeling much better and is back to baseline. He was evaluated for home oxygen and did not qualify. He is stable to be discharged home and will complete prednisone taper and a short course of antibiotics. He has also been prescribed Spiriva for his COPD. Discharge discussed with: patient, nurse - Time Spent with Patient Total time spent providing and/or coordinating discharge services: Less than 30 minutes (25 min) - Discharge Medications Prescriptions: GuaiFENesin Liq [Robitussin Liq] 200 mg PO Q6HR PRN #250 ml PRN Reason: Cough Cefdinir [Omnicef] 300 mg PO BID #8 capsule Doxycycline 100 mg PO BID #8 capsule predniSONE [PredniSONE] 40 mg PO DAILY #8 tablet Tiotropium [Spiriva] 18 mcg IH 0700 #30 capsule Home Medications: Metoprolol [Lopressor] 25 mg PO BID 12/20/15 [History] [place]-3/Dha/Epa/Fish Oil [Fish Oil 1,000 mg Softgel] 1 each PO DAILY 12/20/15 [ History] Pravastatin Sodium [Pravachol] 40 mg PO HS 12/20/15 [History] Acetaminophen [Non-Aspirin] 650 mg PO HS PRN 10/17/17 [History] Albuterol Neb [Proventil Neb] 2.5 mg IH Q4HR PRN 10/17/17 [History] Budesonide/Formoterol 160/4.5 [Symbicort 160/4.5] 2 puff IH BIDR 12/30/17 [ History] Ergocalciferol (VITAMIN D2) [Vitamin D2] 50,000 unit PO QWEEK 12/30/17 [History] Fluticasone Propionate Nasal [Flonase] 1 spr NS DAILY 12/30/17 [History] Cefdinir [Omnicef] 300 mg PO BID #8 capsule 01/01/18 [Rx] Doxycycline 100 mg PO BID #8 capsule 01/01/18 [Rx] GuaiFENesin Liq [Robitussin Liq] 200 mg PO Q6HR PRN #250 ml 01/01/18 [Rx] Tiotropium [Spiriva] 18 mcg IH 0700 #30 capsule 01/01/18 [Rx] predniSONE [PredniSONE] 40 mg PO DAILY #8 tablet 01/01/18 [Rx] Allergies/Adverse Reactions: 3 Allergy/AdvReac Type Severity Reaction Status Date / Time No Known Allergies Allergy Verified 12/30/17 13:29 Date of admission: 12/30/17 16:16 Primary care physician: Quin Palomares CNP Discharging clinician: Stuart Carmichael Anticipated date of discharge: 01/01/18 - Constitutional Vitals: Temp Pulse Resp BP Pulse Ox 97.6 F 99 16 130/85 95 01/01/18 06:46 01/01/18 06:46 01/01/18 08:00 01/01/18 06:46 01/01/18 08:00 General appearance: Present: cooperative, A&O X 3, pleasant, no acute distress, answers questions appropriately - Neck Neck exam general surgery: Present: supple, trachea midline. Absent: lymphadenopathy - Respiratory Respiratory exam: Present: decreased breath sounds (Diminished breath sounds bilaterally), prolonged expiratory phase. Absent: accessory muscle use, rales, rhonchi, wheezes - Cardiovascular Cardiovascular exam: Present: RRR, +S1, +S2. Absent: diastolic murmur, gallop, rubs, systolic murmur - GI/Abdominal GI/Abdominal exam: Present: normal bowel sounds, soft, no peritoneal signs. Absent: distended, tenderness - Extremities Exam Extremities exam: Present: warm, radial pulses palpable and symmetrical. Absent : calf tenderness, cyanotic, pedal edema - Patient Status Disposition: Home, Self-Care Condition: Good Functional capacity at discharge: independent ambulation Overall status at discharge: patient is progressing back to baseline - Discharge Instructions Instructions: Chronic Obstructive Pulmonary Disease (DC) Follow Up With: Quin Palomares CNP [Primary Care Provider] - 01/07/18 12:30 pm - Diet and Activity Activity: increase activity as tolerated Diet: low fat, low cholesterol, low salt diet
[2018-01-01 11:14] VITALS: BP 131/82
--- NOTE | 2018-01-04 12:03 | Electrocardiograph Report ---
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
== END 2018-01-01 13:05 | disposition home or self-care (01) ==
LOC: 3BNU 13:26 → EMEROO 13:26 → SUATTDRO 16:16 → 3BNU 16:17
PROVIDERS: ADMIT Internal Medicine; ATTEND Internal Medicine

== ENCOUNTER 2019-01-04 13:19 | Inpatient (IN) ==
[2019-01-04] MEDS ORDERED: Ipratropium/Albuterol Neb 3 ML IH ONE (13:30)
[2019-01-04] MEDS ORDERED: methylPREDNISolone 125 MG/2 ML VIAL IVP ONE (13:32)
[2019-01-04] MEDS ORDERED: Levofloxacin 500 MG/100 ML 500 MG/100 ML BAG IVPB ONE (13:33)
--- NOTE | 2019-01-04 13:38 | Emergency Department Note ---
Disposition Clinical Impression: COPD exacerbation Disposition: Admitted As Inpatient Condition: Fair Referrals: Quin Palomares [employer]ER [Primary Care Provider] - Forms: ED Satisfaction Letter Time of Disposition: 15:55 General Adult HPI - General Chief complaint: ED Shortness of Breath/Dyspnea Stated complaint: DWIGHT Time Seen by Provider: 01/04/19 13:31 Source: patient, family Limitations: no limitations - History of Present Illness Pain Scale: 0 - Related Data Home Medications Medication Instructions Recorded Confirmed Metoprolol [Lopressor] 25 mg PO BID 12/20/15 11/26/18 [place]-3/Dha/Epa/Fish Oil [Fish Oil 1 each PO DAILY 12/20/15 11/26/18 1,000 mg Softgel] Pravastatin Sodium [Pravachol] 40 mg PO HS 12/20/15 11/26/18 Acetaminophen [Non-Aspirin] 650 mg PO HS PRN 10/17/17 11/26/18 Albuterol Neb [Proventil Neb] 2.5 mg IH Q4HR PRN 10/17/17 11/26/18 Budesonide/Formoterol 160/4.5 2 puff IH BIDR 12/30/17 11/26/18 [Symbicort 160/4.5] Fluticasone Propionate Nasal 1 spr NS DAILY 12/30/17 11/26/18 [Flonase] Previous Rx's Medication Instructions Recorded Tiotropium [Spiriva] 18 mcg IH 0700 #30 capsule 01/01/18 Cyanocobalamin (B-12) [Vitamin B12] 1,000 mcg IM Q1M #10 mls 11/29/18 Cyanocobalamin (B-12) [Vitamin B12] 1,000 mcg IM Q1W #3 mls 11/29/18 Allergies Allergy/AdvReac Type Severity Reaction Status Date / Time No Known Allergies Allergy Verified 11/12/18 14:14 Past Medical History - Past Medical History Medical history: Reports: cancer, COPD, coronary artery disease, hyperlipidemia, hypertension, myocardial infarction Surgical history: Reports: pacemaker/AICD, other Psychiatric history: Reports: anxiety, depression - Social History Smoking Status: Current every day smoker Smokeless Tobacco Status: No Alcohol use: Reports: heavy Drug use: Reports: none Physical Exam - General Limitations: no limitations General appearance: alert, in distress Course Vital Signs Temperature 98 F 01/04/19 13:21 Pulse Rate 121 04/20/19 13:21 Respiratory Rate 26 01/04/19 13:21 Blood Pressure 165/87 01/04/19 13:21 O2 Sat by Pulse Oximetry 92 01/04/19 13:21 Temperature 98 F 01/04/19 13:21 Pulse Rate 97 01/04/19 14:52 Respiratory Rate 23 01/04/19 14:52 Blood Pressure 135/83 01/04/19 14:52 O2 Sat by Pulse Oximetry 96 01/04/19 14:52 Oxygen Delivery Oxygen Delivery Room Air Medical Decision Making - Lab Data Result diagrams: 01/04/19 Unknown 01/04/19 Unknown Lab Results 01/04/19 01/04/19 01/04/19 Range/Units 13:48 15:27 Unknown WBC 8.0 (4.3-11.1) K/mcL RBC 4.97 (4.19-5.50) M/mcL Hgb 15.4 (12.9-16.9) g/dL Hct 44.1 (37.5-50.1) % MCV 88.7 (83.0-100.0) fL MCH 31.0 (28.0-33.3) pg MCHC 34.9 (31.6-35.5) g/dL RDW 13.2 (11.5-14.5) % Plt Count 100 L (140-400) K/mcL MPV 12.5 H (9.4-12.4) fL Immature Gran % 0.4 (0-4) % Seg Neutrophils % 80.1 % Lymphocytes % 6.4 % Monocytes % 11.6 % Eosinophils % 1.1 % Basophils % 0.4 % Neutrophils # 6.4 (1.6-8.9) K/mcL Lymphocytes # 0.5 L (0.6-4.6) K/mcL Monocytes # 0.9 (0.0-1.3) K/mcL Eosinophils # 0.1 (0.0-0.6) K/mcL Basophils # 0.0 (0.0-0.2) K/mcL PT (9.4-12.1) Seconds INR APTT (26.0-36.0) Seconds Sodium (136-145) mEq/L Potassium (3.5-5.1) mEq/L Chloride (98-107) mEq/L Carbon Dioxide (23-29) mEq/L BUN (8-23) mg/dL Creatinine (0.70-1.30) mg/dL Est GFR ( Amer) (> 60) Est GFR (Non-Af Amer) (> 60) BUN/Creatinine Ratio (6-26) Glucose (70-105) mg/dL Calculated Osmolality (280-300) Lactic Acid 1.9 (0.5-2.2) mmol/L Calcium (8.6-10.3) mg/dL Phosphorus (2.7-4.5) mg/dL Magnesium (1.6-2.6) mg/dL Total Bilirubin (0.3-1.0) mg/dL Direct Bilirubin (0.0-0.2) mg/dL Indirect Bilirubin (0.0-1.2) mg/dL AST (13-39) Units/L ALT (7-52) Units/L Alkaline Phosphatase (34-104) Units/L Troponin I (< 0.04) ng/mL Serum Total Protein (6.4-8.9) g/dL Albumin (3.5-5.7) g/dL Globulin (2.4-3.5) g/dL Albumin/Globulin Ratio (1.1-2.2) Urine Color Yellow (Yellow) Urine Clarity Clear (Clear) Urine pH 5.5 (5.0-8.0) pH Units Ur Specific [place] 1.026 H (1.010-1.025) Urine Protein Trace (Neg-Trace) mg/dL Urine Glucose (UA) Normal (Normal) mg/dL Urine Ketones Trace H (Negative) mg/dL Urine Blood Negative (Negative) Urine Nitrite Negative (Negative) Urine Bilirubin Small H (Negative) Urine Urobilinogen Normal (Normal) mg/dL Ur Leukocyte Esterase Negative (Negative) Ur Culture Indicated? NO (NO) 01/04/19 01/04/19 Range/Units Unknown Unknown WBC (4.3-11.1) K/mcL RBC (4.19-5.50) M/mcL Hgb (12.9-16.9) g/dL Hct (37.5-50.1) % MCV (83.0-100.0) fL MCH (28.0-33.3) pg MCHC (31.6-35.5) g/dL RDW (11.5-14.5) % Plt Count (140-400) K/mcL MPV (9.4-12.4) fL Immature Gran % (0-4) % Seg Neutrophils % % Lymphocytes % % Monocytes % % Eosinophils % % Basophils % % Neutrophils # (1.6-8.9) K/mcL Lymphocytes # (0.6-4.6) K/mcL Monocytes # (0.0-1.3) K/mcL Eosinophils # (0.0-0.6) K/mcL Basophils # (0.0-0.2) K/mcL PT 12.1 (9.4-12.1) Seconds INR 1.1 APTT 25.1 L (26.0-36.0) Seconds Sodium 135 L (136-145) mEq/L Potassium 3.7 (3.5-5.1) mEq/L Chloride 99 (98-107) mEq/L Carbon Dioxide 25 (23-29) mEq/L BUN 15 (8-23) mg/dL Creatinine 0.85 (0.70-1.30) mg/dL Est GFR ( Amer) > 60 (> 60) Est GFR (Non-Af Amer) > 60 (> 60) BUN/Creatinine Ratio 18 (6-26) Glucose 118 H (70-105) mg/dL Calculated Osmolality 282 (280-300) Lactic Acid (0.5-2.2) mmol/L Calcium 9.3 (8.6-10.3) mg/dL Phosphorus 3.5 (2.7-4.5) mg/dL Magnesium 1.8 (1.6-2.6) mg/dL Total Bilirubin 1.0 (0.3-1.0) mg/dL Direct Bilirubin 0.2 (0.0-0.2) mg/dL Indirect Bilirubin 0.8 (0.0-1.2) mg/dL AST 16 (13-39) Units/L ALT 18 (7-52) Units/L Alkaline Phosphatase 50 (34-104) Units/L Troponin I < 0.03 (< 0.04) ng/mL Serum Total Protein 6.8 (6.4-8.9) g/dL Albumin 4.3 (3.5-5.7) g/dL Globulin 2.5 (2.4-3.5) g/dL Albumin/Globulin Ratio 1.7 (1.1-2.2) Urine Color (Yellow) Urine Clarity (Clear) Urine pH (5.0-8.0) pH Units Ur Specific [place] (1.010-1.025) Urine Protein (Neg-Trace) mg/dL Urine Glucose (UA) (Normal) mg/dL Urine Ketones (Negative) mg/dL Urine Blood (Negative) Urine Nitrite (Negative) Urine Bilirubin (Negative) Urine Urobilinogen (Normal) mg/dL Ur Leukocyte Esterase (Negative) Ur Culture Indicated? (NO) Attestation Statement - Attestation Attestation: I examined this patient and my medical decision-making was reviewed with the Resident Physician. I agree with the documented findings, disposition and treatment plan as described except to the extent set forth below. Patient presents to the ED with a chief complaint of shortness of breath. Onset 1 week ago. He was treated at that time with "2 shots and a Z-Han." He states he got worse last night. Coughing up clear phlegm. No chest pain. No pain swelling in his legs. Cardiac history of a pacemaker but no coronary disease. He also has a history of lung cancer with a partial pneumonectomy on the left. On examination he is visibly dyspneic. Accessory muscle use. Tachypneic. Diffuse inspiratory expiratory wheezing. Plan. Nebs and steroids. Septic workup. Likely admission. Antibiotics. Patient feeling much better. After nebs. Still some expiratory wheezing. Heart rate is improved to the 90s. He was accepted for admission by the hospitalist. Chest X-Ray 01/04/19 13:30 IMPRESSION: 1. No acute cardiopulmonary disease. D/ / 01/04/2019 13:55:41 Gavin Aleman MD / [facility] Interpreting Provider: Gavin Aleman MD
[2019-01-04 14:04] LABS: Basophils % 0.4 %; Eosinophils # 0.1 K/mcL (0.0-0.6); Eosinophils % 1.1 %; Hematocrit 44.1 % (37.5-50.1); Hemoglobin 15.4 g/dL (12.9-16.9); Immature Granulocytes % 0.4 % (0-4); Lymphocytes # 0.5 K/mcL (0.6-4.6); Lymphocytes % 6.4 %; Mean Corpuscular HGB Conc 34.9 g/dL (31.6-35.5); Mean Corpuscular Volume 88.7 fL (83.0-100.0); Mean Platelet Volume 12.5 fL (9.4-12.4); Monocytes # 0.9 K/mcL (0.0-1.3); Monocytes % 11.6 %; Neutrophils # 6.4 K/mcL (1.6-8.9); Platelet Count 100 K/mcL (140-400); Red Blood Count 4.97 M/mcL (4.19-5.50); Red Cell Distribution Width 13.2 % (11.5-14.5); Segmented Neutrophils % 80.1 %
[2019-01-04 14:13] LABS: Alanine Aminotransferase 18 Units/L (7-52); Albumin 4.3 g/dL (3.5-5.7); Albumin/Globulin Ratio 1.7 (1.1-2.2); Alkaline Phosphatase 50 Units/L (34-104); Aspartate Amino Transferase 16 Units/L (13-39); BUN/Creatinine Ratio 18 (6-26); Bilirubin,Direct 0.2 mg/dL (0.0-0.2); Bilirubin,Indirect 0.8 mg/dL (0.0-1.2); Blood Urea Nitrogen 15 mg/dL (8-23); Calcium 9.3 mg/dL (8.6-10.3); Carbon Dioxide 25 mEq/L (23-29); Chloride 99 mEq/L (98-107); Globulin 2.5 g/dL (2.4-3.5); Glucose 118 mg/dL (70-105); Magnesium 1.8 mg/dL (1.6-2.6); Osmolality,Calculated 282 (280-300); Phosphorous 3.5 mg/dL (2.7-4.5); Potassium 3.7 mEq/L (3.5-5.1); Sodium 135 mEq/L (136-145); Total Protein 6.8 g/dL (6.4-8.9); Troponin I < 0.03 ng/mL (< 0.04); eGFR For Non-African Americans > 60 (> 60)
[2019-01-04 14:14] LABS: INR 1.1; Prothrombin Time 12.1 Seconds (9.4-12.1)
[2019-01-04 14:16] LABS: Activated Partial Thrombo Time 25.1 Seconds (26.0-36.0)
--- NOTE | 2019-01-04 14:38 | Emergency Department Note ---
Disposition Clinical Impression: COPD exacerbation Disposition: Admitted As Inpatient Condition: Good Time of Disposition: 16:00 General Adult HPI - General Chief complaint: ED Shortness of Breath/Dyspnea Stated complaint: DWIGHT Source: patient, family Limitations: no limitations Nursing Notes Reviewed: Yes Vital Signs Reviewed: Yes - History of Present Illness HPI Narrative: Male patient with a history of lobectomy after a lung cancer as well as history of bowel cancer and COPD presenting to emergency department with shortness of br eath that got worse last night. States that the shortest breath is been present for the past week however he was given "2 shots" one of which appears to be a steroid at least and then Z-Han approximately a week ago states that he was feeling better however he got worse again last night. Denies any fever. Does report shortness of breath. Uses Spiriva as well as albuterol. States he has been using these with no relief. He denies any chest pain. Denies any nausea vomiting diarrhea or abdominal pain. Denies any swelling to his extremities. No history of PE or DVT. Was previously on oxygen before but has not been on oxygen over the past several months. Pain Scale: 0 - Related Data Home Medications Medication Instructions Recorded Confirmed Metoprolol [Lopressor] 25 mg PO BID 12/20/15 11/26/18 [place]-3/Dha/Epa/Fish Oil [Fish Oil 1 each PO DAILY 12/20/15 11/26/18 1,000 mg Softgel] Pravastatin Sodium [Pravachol] 40 mg PO HS 12/20/15 11/26/18 Acetaminophen [Non-Aspirin] 650 mg PO HS PRN 10/17/17 11/26/18 Albuterol Neb [Proventil Neb] 2.5 mg IH Q4HR PRN 10/17/17 11/26/18 Budesonide/Formoterol 160/4.5 2 puff IH BIDR 12/30/17 11/26/18 [Symbicort 160/4.5] Fluticasone Propionate Nasal 1 spr NS DAILY 12/30/17 11/26/18 [Flonase] Previous Rx's Medication Instructions Recorded Tiotropium [Spiriva] 18 mcg IH 0700 #30 capsule 01/01/18 Cyanocobalamin (B-12) [Vitamin B12] 1,000 mcg IM Q1M #10 mls 03/15/19 Cyanocobalamin (B-12) [Vitamin B12] 1,000 mcg IM Q1W #3 mls 11/29/18 Allergies Allergy/AdvReac Type Severity Reaction Status Date / Time No Known Allergies Allergy Verified 11/12/18 14:14 All systems ED: reviewed and negative except as stated. Review of Systems: As Per HPI Constitutional: Denies: fever ENT ED: Denies: congestion Cardiovascular: Denies: chest pain, palpitations, syncope Respiratory: Reports: cough, dyspnea, wheezes, sputum production Gastrointestinal: Denies: abdominal pain, nausea, vomiting, diarrhea Genitourinary: Denies: urgency, dysuria, frequency, hematuria Neurological: Denies: headache Past Medical History - Past Medical History Attestation: Yes The following information was validated with the patient. Source: patient Medical history: Reports: cancer, COPD, coronary artery disease, hyperlipidemia, hypertension, myocardial infarction Surgical history: Reports: pacemaker/AICD, other Psychiatric history: Reports: anxiety, depression - Social History Smoking Status: Current every day smoker Smokeless Tobacco Status: No Alcohol use: Reports: heavy Drug use: Reports: none Physical Exam - General Limitations: no limitations General appearance: alert, in distress - Head Head exam: atraumatic, normocephalic, normal inspection - Eye Eye exam: Present: normal appearance, PERRL, EOMI - ENT ENT exam: normal exam, normal oropharynx, mucous membranes moist - Neck Neck exam: Present: normal inspection, full ROM, trachea midline - Chest Chest inspection: Present: normal inspection, symmetric chest wall rise - Respiratory Respiratory exam: Present: respiratory distress, wheezes (Respiratory and neck supported throughout.), accessory muscle use, prolonged expiratory phase - Cardiovascular Cardiovascular exam: Present: regular rate, normal rhythm, normal heart sounds - Abdominal Exam Abdominal exam: Present: soft, Non-Tender. Absent: tenderness, distention, guarding, rebound, rigidity, organomegaly, Gaspar's sign, Rovsing's sign, tenderness at McBurney's Point - Extremities Exam Extremities exam: Present: normal inspection, full ROM, normal capillary refill. Absent: tenderness, pedal edema, calf tenderness - Back Exam Back exam: Present: normal inspection, full ROM. Absent: tenderness - Neurological Exam Neurological exam: Present: alert, oriented X3 - Psychiatric Psychiatric exam: Present: normal affect, normal mood - Skin Skin exam: Present: warm, dry, intact, normal color. Absent: rash, cyanosis, diaphoresis Course Course Narrative: Patient tachypneic with retractions in bed. Wheezing throughout respiratory and expiratory. Tachycardic. Actions saturation is still in the 96% range not on oxygen supplementation currently. Abdomen is soft nontender. Heart tones are normal. Does have a history of a pacemaker placed but denies any stent placement. We will provide patient with a DuoNeb as well as steroids and a c hest x-ray as well as basic lab workup an EKG. Again he denies any chest pain at this time. - Reevaluation(s) Reevaluation #1: Patient reevaluated. Lung sounds still have a expiratory wheeze respiratory wheeze has diminished. Patient reports that he is feeling significantly better. We will reevaluate. Patient does still appear to be mildly tachypneic, however retractions have lessened. Time: 14:36 Reevaluation #2: Patient still dyspneic. His neck on exertion as well. We will provide another albuterol treatment and admitted to the hospital. We did start patient on Levaquin. Vital Signs Temperature 98 F 01/04/19 13:21 Pulse Rate 121 01/04/19 13:21 Respiratory Rate 26 01/04/19 13:21 Blood Pressure 165/87 01/04/19 13:21 O2 Sat by Pulse Oximetry 92 01/04/19 13:21 Temperature 98 F 01/04/19 13:21 Pulse Rate 97 01/04/19 14:52 Respiratory Rate 23 01/04/19 14:52 Blood Pressure 135/83 01/04/19 14:52 O2 Sat by Pulse Oximetry 96 01/04/19 14:52 Oxygen Delivery Oxygen Delivery Room Air Medical Decision Making - Medical Records Medical records reviewed: Yes I reviewed the patient's medical records. - Lab Data Lab results reviewed: Yes I reviewed the patient's lab results. Result diagrams: 01/04/19 Unknown 01/04/19 Unknown Lab Results 01/04/19 01/04/19 01/04/19 Range/Units 13:48 15:27 Unknown WBC 8.0 (4.3-11.1) K/mcL RBC 4.97 (4.19-5.50) M/mcL Hgb 15.4 (12.9-16.9) g/dL Hct 44.1 (37.5-50.1) % MCV 88.7 (83.0-100.0) fL MCH 31.0 (28.0-33.3) pg MCHC 34.9 (31.6-35.5) g/dL RDW 13.2 (11.5-14.5) % Plt Count 100 L (140-400) K/mcL MPV 12.5 H (9.4-12.4) fL Immature Gran % 0.4 (0-4) % Seg Neutrophils % 80.1 % Lymphocytes % 6.4 % Monocytes % 11.6 % Eosinophils % 1.1 % Basophils % 0.4 % Neutrophils # 6.4 (1.6-8.9) K/mcL Lymphocytes # 0.5 L (0.6-4.6) K/mcL Monocytes # 0.9 (0.0-1.3) K/mcL Eosinophils # 0.1 (0.0-0.6) K/mcL Basophils # 0.0 (0.0-0.2) K/mcL PT (9.4-12.1) Seconds INR APTT (26.0-36.0) Seconds Sodium (136-145) mEq/L Potassium (3.5-5.1) mEq/L Chloride (98-107) mEq/L Carbon Dioxide (23-29) mEq/L BUN (8-23) mg/dL Creatinine (0.70-1.30) mg/dL Est GFR ( Amer) (> 60) Est GFR (Non-Af Amer) (> 60) BUN/Creatinine Ratio (6-26) Glucose (70-105) mg/dL Calculated Osmolality (280-300) Lactic Acid 1.9 (0.5-2.2) mmol/L Calcium (8.6-10.3) mg/dL Phosphorus (2.7-4.5) mg/dL Magnesium (1.6-2.6) mg/dL Total Bilirubin (0.3-1.0) mg/dL Direct Bilirubin (0.0-0.2) mg/dL Indirect Bilirubin (0.0-1.2) mg/dL AST (13-39) Units/L ALT (7-52) Units/L Alkaline Phosphatase (34-104) Units/L Troponin I (< 0.04) ng/mL Serum Total Protein (6.4-8.9) g/dL Albumin (3.5-5.7) g/dL Globulin (2.4-3.5) g/dL Albumin/Globulin Ratio (1.1-2.2) Urine Color Yellow (Yellow) Urine Clarity Clear (Clear) Urine pH 5.5 (5.0-8.0) pH Units Ur Specific [place] 1.026 H (1.010-1.025) Urine Protein Trace (Neg-Trace) mg/dL Urine Glucose (UA) Normal (Normal) mg/dL Urine Ketones Trace H (Negative) mg/dL Urine Blood Negative (Negative) Urine Nitrite Negative (Negative) Urine Bilirubin Small H (Negative) Urine Urobilinogen Normal (Normal) mg/dL Ur Leukocyte Esterase Negative (Negative) Ur Culture Indicated? NO (NO) 01/04/19 01/04/19 Range/Units Unknown Unknown WBC (4.3-11.1) K/mcL RBC (4.19-5.50) M/mcL Hgb (12.9-16.9) g/dL Hct (37.5-50.1) % MCV (83.0-100.0) fL MCH (28.0-33.3) pg MCHC (31.6-35.5) g/dL RDW (11.5-14.5) % Plt Count (140-400) K/mcL MPV (9.4-12.4) fL Immature Gran % (0-4) % Seg Neutrophils % % Lymphocytes % % Monocytes % % Eosinophils % % Basophils % % Neutrophils # (1.6-8.9) K/mcL Lymphocytes # (0.6-4.6) K/mcL Monocytes # (0.0-1.3) K/mcL Eosinophils # (0.0-0.6) K/mcL Basophils # (0.0-0.2) K/mcL PT 12.1 (9.4-12.1) Seconds INR 1.1 APTT 25.1 L (26.0-36.0) Seconds Sodium 135 L (136-145) mEq/L Potassium 3.7 (3.5-5.1) mEq/L Chloride 99 (98-107) mEq/L Carbon Dioxide 25 (23-29) mEq/L BUN 15 (8-23) mg/dL Creatinine 0.85 (0.70-1.30) mg/dL Est GFR ( Amer) > 60 (> 60) Est GFR (Non-Af Amer) > 60 (> 60) BUN/Creatinine Ratio 18 (6-26) Glucose 118 H (70-105) mg/dL Calculated Osmolality 282 (280-300) Lactic Acid (0.5-2.2) mmol/L Calcium 9.3 (8.6-10.3) mg/dL Phosphorus 3.5 (2.7-4.5) mg/dL Magnesium 1.8 (1.6-2.6) mg/dL Total Bilirubin 1.0 (0.3-1.0) mg/dL Direct Bilirubin 0.2 (0.0-0.2) mg/dL Indirect Bilirubin 0.8 (0.0-1.2) mg/dL AST 16 (13-39) Units/L ALT 18 (7-52) Units/L Alkaline Phosphatase 50 (34-104) Units/L Troponin I < 0.03 (< 0.04) ng/mL Serum Total Protein 6.8 (6.4-8.9) g/dL Albumin 4.3 (3.5-5.7) g/dL Globulin 2.5 (2.4-3.5) g/dL Albumin/Globulin Ratio 1.7 (1.1-2.2) Urine Color (Yellow) Urine Clarity (Clear) Urine pH (5.0-8.0) pH Units Ur Specific [place] (1.010-1.025) Urine Protein (Neg-Trace) mg/dL Urine Glucose (UA) (Normal) mg/dL Urine Ketones (Negative) mg/dL Urine Blood (Negative) Urine Nitrite (Negative) Urine Bilirubin (Negative) Urine Urobilinogen (Normal) mg/dL Ur Leukocyte Esterase (Negative) Ur Culture Indicated? (NO) - Radiology Data Radiology results reviewed: Yes I reviewed the patient's radiology results. Chest X-Ray 01/04/19 13:30 IMPRESSION: 1. No acute cardiopulmonary disease. D/ / 01/04/2019 13:55:41 Gavin Aleman MD / [facility] Interpreting Provider: Gavin Aleman MD - EKG Data EKG #1 EKG attestation: Yes I reviewed and interpreted this EKG. EKG results narrative: Ventricularly paced rhythm at a rate of 120. [place] interval is 114. QRS duration is 174. QT is 369. QTC is 522. Patient is paced rhythm at this time. Previous EKG dated 12/30/2017 showed a ventricularly paced rhythm at a rate of 99 at that time. No significant change.
[2019-01-04] MEDS ORDERED: traMADol 50 MG TABLET PO PRN (15:42)
[2019-01-04] MEDS ORDERED: Naloxone 0.4 MG/ML INJ IVP PRN (15:42)
[2019-01-04 15:46] LABS: Bilirubin,Urine Small (Negative); Blood,Urine Negative (Negative); Clarity,Urine Clear (Clear); Color,Urine Yellow (Yellow); Glucose,Urine (UA) Normal (Normal); Ketones,Urine Trace mg/dL (Negative); Leukocyte Esterase,Urine Negative (Negative); Nitrite,Urine Negative (Negative); PH,Urine 5.5 pH Units (5.0-8.0); Protein,Urine Trace mg/dL (Neg-Trace); Specific Gravity,Urine 1.026 (1.010-1.025); Urobilinogen,Urine Normal (Normal)
[2019-01-04] MEDS ORDERED: Albuterol 2.5 MG/3 ML NEBULIZER IH STA (15:57)
--- NOTE | 2019-01-04 16:15 | Internal Med History&Physical ---
Date of Encounter: 01/04/19 Time of Encounter: 16:09 Internal Medicine - H&P: HPI Chief complaint: shortness of breath Admitted From: Home History of present illness: Mr. Angulo is a 68 year old male PMH of lung CA s/p left lower lobe lobectomy about 40 years ago, colon CA s/p resection in 2009, COPD, HTN, A.fib and COPD. Patient presented to the ED due to shortness of breath. He reports he has been feeling short of breath for about a week which he believes is because he has been smoking more for the past week due to stress. Reports on Sunday he went to the ED at [facility] in [place] due to shortness of breath, report he got two shots of some medication and his shortness of breath resolved and he was discharged home. States that last night at around 10pmg when he was going to bed he started feeling very short of breath, reports he tried some nebs and inhalers without relief of his symptoms and decided to come to the ED today. Denies chest pain, nausea, vomiting. Reports productive cough with increased clear sputum production. denies fever/chills or sick contacts. Past Med Surg Social Fam HX - Past Medical History Medical history: cancer, COPD, coronary artery disease, hyperlipidemia, hypertension, myocardial infarction Additional medical history: Lung Cancer Psychiatric history: anxiety, depression - Past Surgical History Surgical History: pacemaker/AICD, other Additional surgical history: exp lap, ileostomy, resection - Social History Smoking Status: Current every day smoker Smokeless Tobacco Status: No Alcohol use: heavy Drug use: none - Family History Mother Hx Family Cancer: Yes (Breast) Internal Medicine - H&P: Meds Metoprolol [Lopressor] 25 mg PO BID 12/20/15 [History] [place]-3/Dha/Epa/Fish Oil [Fish Oil 1,000 mg Softgel] 1 each PO DAILY 12/20/15 [History] Pravastatin Sodium [Pravachol] 40 mg PO HS 12/20/15 [History] Acetaminophen [Non-Aspirin] 650 mg PO HS PRN 10/17/17 [History] Albuterol Neb [Proventil Neb] 2.5 mg IH Q4HR PRN 10/17/17 [History] Budesonide/Formoterol 160/4.5 [Symbicort 160/4.5] 2 puff IH BIDR 12/30/17 [History] Fluticasone Propionate Nasal [Flonase] 1 spr NS DAILY 12/30/17 [History] Tiotropium [Spiriva] 18 mcg IH 0700 #30 capsule 01/01/18 [Rx] Cyanocobalamin (B-12) [Vitamin B12] 1,000 mcg IM Q1M #10 mls 11/29/18 [Rx] Cyanocobalamin (B-12) [Vitamin B12] 1,000 mcg IM Q1W #3 mls 11/29/18 [Rx] Allergy/AdvReac Type Severity Reaction Status Date / Time No Known Allergies Allergy Verified 11/12/18 14:14 All Systems PM: A 10-system review of systems was performed and is negative for pertinent findings except as documented above in the HPI. - Constitutional Constitutional: no chills, no fever(s), no weakness - EENT Eyes: no irritation, no photophobia Nose, mouth and throat: no change in voice, no mouth pain - Cardiovascular Cardiovascular ROS IM: dyspnea, no chest pain, no diaphoresis, no edema, no lightheadedness, no orthopnea, no palpitations, no paroxysmal nocturnal dyspnea - Respiratory Respiratory: no cough - Gastrointestinal Gastrointestinal: no abdominal pain, no nausea, no vomiting - Genitourinary Genitourinary ROS male: no nocturia, no urinary frequency, no urinary hesitancy, no urinary incontinence - Musculoskeletal Musculoskeletal ROS IM: no arthralgias, no muscle weakness - Integumentary Integumentary IM: no erythema, no rash - Neurological Neurological ROS: no headache(s), no tremor(s) - Psychiatric Psychiatric: no anxiety, no hopelessness, no irritability - Endocrine Endocrine IM: no cold intolerance, no excessive sweating - Hematologic/Lymphatic Hematologic/Lymphatic: no lymphadenopathy - Allergic/Immunologic Allergic/Immunologic: no GI upset with certain foods Additional comments: Rest of a 10 review of system negative - Constitutional Vitals: Temp Pulse Resp BP Pulse Ox 98 F 97 23 135/83 96 01/04/19 13:21 01/04/19 14:52 01/04/19 14:52 01/04/19 14:52 01/04/19 14:52 Exam: Vital: Reviewed General: Alert and oriented x4. in mild due to shortness of breath Skin: Normal color, no rash, no lesions. HEENT: EOM, pupils equal, round and reactive. Cardiovascular: irregularly irregular, normal S1 & S2, no rubs, murmurs or gallops. Lungs: Decreased breath sounds plus scattered b/l wheezes, no crackles. Abdomen: Soft, non-tender, no rigidity. Extremities: No deformity, no edema or tenderness, no joint swelling or clubbing. Neurological: Normal cognition and motor skills. Rest of the physical exam is non contributory Internal Med - H&P Results - Labs CBC & Chem 7: 01/04/19 Unknown 01/04/19 Unknown Labs: Short CBC 01/04/19 Range/Units Unknown WBC 8.0 (4.3-11.1) K/mcL Hgb 15.4 (12.9-16.9) g/dL Hct 44.1 (37.5-50.1) % Plt Count 100 L (140-400) K/mcL Neutrophils # 6.4 (1.6-8.9) K/mcL BMP 01/04/19 Unknown Sodium 135 L Potassium 3.7 Chloride 99 Carbon Dioxide 25 BUN 15 Creatinine 0.85 Glucose 118 H Calcium 9.3 Cardiac Enzymes 01/04/19 Range/Units Unknown Troponin I < 0.03 (< 0.04) ng/mL Liver Function 01/04/19 Range/Units Unknown Total Bilirubin 1.0 (0.3-1.0) mg/dL Direct Bilirubin 0.2 (0.0-0.2) mg/dL AST 16 (13-39) Units/L ALT 18 (7-52) Units/L Alkaline Phosphatase 50 (34-104) Units/L Albumin 4.3 (3.5-5.7) g/dL Urine 01/04/19 Range/Units 15:27 Urine Color Yellow (Yellow) Urine Clarity Clear (Clear) Urine pH 5.5 (5.0-8.0) pH Units Ur Specific [place] 1.026 H (1.010-1.025) Urine Protein Trace (Neg-Trace) mg/dL Urine Glucose (UA) Normal (Normal) mg/dL - Impressions ITS Impressions Chest X-Ray 01/04/19 13:30 IMPRESSION: 1. No acute cardiopulmonary disease. D/ / 01/04/2019 13:55:41 Gavin Aleman MD / [email or web address] Interpreting Provider: Gavin Aleman MD - Diagnostic Studies Chest x-ray Status: image reviewed by me (no acute findings ) - Assessment and Plan (1) COPD exacerbation Current Visit: Yes Status: Acute Assessment and plan: reports shortness of breath for about a week, worsened last night. increased productive cough Plan Started on bronchodilators Q4RT scheduled solu-medrol 125mg/IV x1 Solu-Medrol 60mg/IV Q8hr will resume symbicort, home medication started on empiric antibiotics coverage with levofloxacin 750mg/IV daily Sputum culture and gram stain urine for atypical organism Respiratory panel O2 by nasal cannula, titrate for O2Sat >92% (2) Thrombocytopenia Current Visit: Yes Status: Chronic Assessment and plan: un-clear etiology. hepatitis panel ordered. abdominal us. (3) DVT prophylaxis Current Visit: No Status: Chronic Assessment and plan: started on heparin SubQ (4) Hypertension Current Visit: No Status: Chronic Assessment and plan: patient is on metoprolol 25mg/PO BID. Qualifiers: Hypertension type: essential hypertension Qualified Code(s): I10 - Essential (primary) hypertension (5) HLD (hyperlipidemia) Current Visit: Yes Status: Chronic Assessment and plan: Continue simvastatin 40 mg by mouth at bedtime. Qualifiers: Hyperlipidemia type: unspecified Qualified Code(s): E78.5 - Hyperlipidemia, unspecified (6) Atrial fibrillation Current Visit: Yes Status: Chronic Assessment and plan: Status post pacemaker, rate controlled on metoprolol. aspirin 81mg added for secondary stroke prevention. Qualifiers: Atrial fibrillation type: chronic Qualified Code(s): I48.2 - Chronic atrial fibrillation - Time Spent With Patient Total time spent is greater than 50% in coordination of care (as documented) at patient's floor/unit and/or counseling patient: Greater than 35 minutes (45)
[2019-01-04] MEDS: Ipratropium/Albuterol Neb 3 ML IH PRN (18:02)
[2019-01-04] MEDS: methylPREDNISolone 125 MG/2 ML VIAL IVP SCH ×2 (18:46→23:01)
[2019-01-04 19:06] LABS: Adenovirus Not Detected (Not Detect); Bordetella Pertussis Not Detected (Not Detect); Chlamydophila pneumoniae Not Detected (Not Detect); Coronavirus 229E Not Detected (Not Detect); Coronavirus HKU1 Not Detected (Not Detect); Coronavirus NL63 Not Detected (Not Detect); Coronavirus OC43 Not Detected (Not Detect); Human Metapneumovirus Not Detected (Not Detect); Human Rhinovirus/Enterovirus DETECTED (Not Detect); Influenza A Subtype 2009 H1 Not Detected (Not Detect); Influenza A Untypeable Not Detected (Not Detect); Influenza B Not Detected (Not Detect); Mycoplasma pneumoniae Not Detected (Not Detect); Parainfluenza Virus 1 Not Detected (Not Detect); Parainfluenza Virus 2 Not Detected (Not Detect); Parainfluenza Virus 3 Not Detected (Not Detect); Parainfluenza Virus 4 Not Detected (Not Detect); Respiratory Syncytial Virus Not Detected (Not Detect)
[2019-01-04] MEDS: Budesonide/Formoterol 160/4.5 1 PUFF INH IH SCH (21:53)
[2019-01-04] MEDS: *HR* Heparin 5,000 UNIT/ML VIAL SQ SCH (22:31)
[2019-01-05] MEDS: *HR* Heparin 5,000 UNIT/ML VIAL SQ SCH ×3 (02:16→21:24)
[2019-01-05 05:15] LABS: BUN/Creatinine Ratio 26 (6-26); Blood Urea Nitrogen 20 mg/dL (8-23); Calcium 8.6 mg/dL (8.6-10.3); Carbon Dioxide 24 mEq/L (23-29); Chloride 100 mEq/L (98-107); Glucose 136 mg/dL (70-105); Magnesium 1.9 mg/dL (1.6-2.6); Osmolality,Calculated 279 (280-300); Phosphorous 3.2 mg/dL (2.7-4.5); Sodium 132 mEq/L (136-145); eGFR For Non-African Americans > 60 (> 60)
[2019-01-05 05:39] LABS: Basophils % 0.3 %; Hematocrit 37.5 % (37.5-50.1); Hemoglobin 13.1 g/dL (12.9-16.9); Immature Granulocytes % 0.8 % (0-4); Immature Platelets 16.5 % (1.1-6.1); Lymphocytes # 0.2 K/mcL (0.6-4.6); Lymphocytes % 6.3 %; Mean Corpuscular HGB Conc 34.9 g/dL (31.6-35.5); Mean Corpuscular Hemoglobin 31.1 pg (28.0-33.3); Mean Corpuscular Volume 89.1 fL (83.0-100.0); Mean Platelet Volume 12.2 fL (9.4-12.4); Monocytes # 0.1 K/mcL (0.0-1.3); Monocytes % 2.5 %; Neutrophils # 3.2 K/mcL (1.6-8.9); Platelet Count 72 K/mcL (140-400); Red Blood Count 4.21 M/mcL (4.19-5.50); Red Cell Distribution Width 13.3 % (11.5-14.5); Segmented Neutrophils % 90.1 %
[2019-01-05] MEDS: Budesonide/Formoterol 160/4.5 1 PUFF INH IH SCH ×2 (07:34→19:40)
[2019-01-05] MEDS: Ipratropium/Albuterol Neb 3 ML IH PRN (07:36)
[2019-01-05] MEDS: methylPREDNISolone 125 MG/2 ML VIAL IVP SCH ×3 (08:15→23:26)
[2019-01-05] MEDS: Levofloxacin 750 MG/150 ML 750 MG/150 ML BAG IVPB SCH (08:16)
[2019-01-05] MEDS: Aspirin Enteric Coated 81 MG Tablet PO SCH (08:16)
--- NOTE | 2019-01-05 09:20 | Internal Med Progress Note ---
Hospitalist Progress Note - Encounter Date of Encounter: 01/05/19 Time of Encounter: 09:16 - Subjective Interval History: Sincerely and examined in the room, he reported improved shortness of breath and dry cough. He denies any fever, chills, or night sweats. He has no chest pain, palpitation, or syncope. - Exam Vitals: Temp Pulse Resp BP Pulse Ox 97.6 F 86 18 136/86 94 01/05/19 07:28 01/05/19 07:28 01/05/19 07:35 01/05/19 07:28 01/05/19 07:35 Exam: Vital: Reviewed General: Alert and oriented x4. in mild due to shortness of breath Skin: Normal color, no rash, no lesions. HEENT: EOM, pupils equal, round and reactive. Cardiovascular: irregularly irregular, normal S1 & S2, no rubs, murmurs or gallops. Lungs: Decreased breath sounds plus scattered b/l wheezes, no crackles. Abdomen: Soft, non-tender, no rigidity. Extremities: No deformity, no edema or tenderness, no joint swelling or clubbing. Neurological: Normal cognition and motor skills. Rest of the physical exam is non contributory - Assessment and Plan (1) COPD exacerbation Current Visit: Yes Status: Acute Assessment and Plan: reports shortness of breath for about a week, worsened last night. increased productive cough Plan Started on bronchodilators Q4RT scheduled solu-medrol 125mg/IV x1 Solu-Medrol 60mg/IV Q8hr resume symbicort, home medication started on empiric antibiotics coverage with levofloxacin 750mg/IV daily Sputum culture and gram stain urine for atypical organism Respiratory panel O2 by nasal cannula, titrate for O2Sat >92% (2) Hypertension Current Visit: No Status: Chronic Assessment and Plan: patient is on metoprolol 25mg/PO BID. BP well controlled currently. (3) Thrombocytopenia Current Visit: Yes Status: Chronic Assessment and Plan: un-clear etiology. hepatitis panel ordered. abdominal us. (4) HLD (hyperlipidemia) Current Visit: Yes Status: Chronic Assessment and Plan: Continue simvastatin 40 mg by mouth at bedtime. (5) Atrial fibrillation Current Visit: Yes Status: Chronic Assessment and Plan: Status post pacemaker, rate controlled on metoprolol. aspirin 81mg added for secondary stroke prevention. (6) DVT prophylaxis Current Visit: No Status: Chronic Assessment and Plan: started on heparin SubQ - Time Spent with Patient Total time spent is greater than 50% in coordination of care (as documented) at patient's floor/unit and/or counseling patient: Greater than 35 minutes Plan of Care Discussed with: patient Internal Medicine: Result - Labs CBC & Chem 7: 01/05/19 03:14 01/05/19 03:14 Labs: Short CBC 01/04/19 01/05/19 Range/Units Unknown 03:14 WBC 8.0 3.6 L D (4.3-11.1) K/mcL Hgb 15.4 13.1 D (12.9-16.9) g/dL Hct 44.1 37.5 (37.5-50.1) % Plt Count 100 L 72 L (140-400) K/mcL Neutrophils # 6.4 3.2 (1.6-8.9) K/mcL BMP 01/04/19 01/05/19 Unknown 03:14 Sodium 135 L 132 L Potassium 3.7 4.0 Chloride 99 100 Carbon Dioxide 25 24 BUN 15 20 Creatinine 0.85 0.76 Glucose 118 H 136 H Calcium 9.3 8.6 Cardiac Enzymes 01/04/19 Range/Units Unknown Troponin I < 0.03 (< 0.04) ng/mL Liver Function 01/04/19 Range/Units Unknown Total Bilirubin 1.0 (0.3-1.0) mg/dL Direct Bilirubin 0.2 (0.0-0.2) mg/dL AST 16 (13-39) Units/L ALT 18 (7-52) Units/L Alkaline Phosphatase 50 (34-104) Units/L Albumin 4.3 (3.5-5.7) g/dL Urine 01/04/19 Range/Units 15:27 Urine Color Yellow (Yellow) Urine Clarity Clear (Clear) Urine pH 5.5 (5.0-8.0) pH Units Ur Specific [place] 1.026 H (1.010-1.025) Urine Protein Trace (Neg-Trace) mg/dL Urine Glucose (UA) Normal (Normal) mg/dL - ABG Interpretation ABG results: PT/INR, D-dimer PT 12.1 Seconds (9.4-12.1) 01/04/19 Unknown D-Dimer < 215 ng/mLFEU (0-500) 01/04/19 16:15 - Impressions Impressions Chest X-Ray 01/04/19 13:30 IMPRESSION: 1. No acute cardiopulmonary disease. D/ / 01/04/2019 13:55:41 Gavin Aleman MD / [email or web address] Interpreting Provider: Gavin Aleman MD Consult Discharge Plan - Plan Referrals: Quin Palomares, [employer]AR[employer] [Primary Care Provider] - (2) Hypertension Qualifiers: Hypertension type: essential hypertension Qualified Code(s): I10 - Essential (primary) hypertension (4) HLD (hyperlipidemia) Qualifiers: Hyperlipidemia type: unspecified Qualified Code(s): E78.5 - Hyperlipidemia, unspecified (5) Atrial fibrillation Qualifiers: Atrial fibrillation type: chronic Qualified Code(s): I48.2 - Chronic atrial fibrillation
[2019-01-05] MEDS: Ipratropium/Albuterol Neb 3 ML IH SCH ×4 (11:12→23:58)
--- NOTE | 2019-01-05 14:41 | Electrocardiograph Report ---
[facility] Test Date: 2019-01-04 Pat Name: Elier Angulo Department: EXAM5 Room: 23 Gender: M [employer] Supervisor: : [id number] Requested By: Johanna Donohue Order Number: [id number] Reading MD: Delbert Singh Measurements Intervals [place] Rate: 120 P: 98 CA: 114 QRS: -23 QRSD: 174 T: 145 QT: 369 QTc: 522 Interpretive Statements Ventricular-paced rhythm No further analysis attempted due to paced rhythm Electronically Signed On 01-05-2019 14:40:03 EDT by Delbert Singh
[2019-01-06] MEDS: *HR* Heparin 5,000 UNIT/ML VIAL SQ SCH ×3 (04:41→20:56)
[2019-01-06] MEDS: Ipratropium/Albuterol Neb 3 ML IH SCH ×5 (04:44→19:49)
[2019-01-06 05:40] LABS: BUN/Creatinine Ratio 38 (6-26); Blood Urea Nitrogen 24 mg/dL (8-23); Calcium 8.8 mg/dL (8.6-10.3); Carbon Dioxide 25 mEq/L (23-29); Chloride 102 mEq/L (98-107); Glucose 132 mg/dL (70-105); Osmolality,Calculated 280 (280-300); Potassium 4.1 mEq/L (3.5-5.1); Sodium 132 mEq/L (136-145); eGFR For Non-African Americans > 60 (> 60)
[2019-01-06] MEDS: Budesonide/Formoterol 160/4.5 1 PUFF INH IH SCH ×2 (07:34→19:49)
--- NOTE | 2019-01-06 09:25 | Internal Med Progress Note ---
Hospitalist Progress Note - Encounter Date of Encounter: 01/06/19 Time of Encounter: 09:21 - Subjective Interval History: Pt seen and examined in the room. He reported improved cough and dyspnea. Has been off O2 and doing fine. No chest pain, palpitation, or syncope. - Exam Vitals: Temp Pulse Resp BP Pulse Ox 97.7 F 89 18 121/70 91 01/06/19 04:20 01/06/19 04:20 01/06/19 07:36 01/06/19 04:20 01/06/19 07:36 Exam: Vital: Reviewed General: Alert and oriented x4. in mild due to shortness of breath Skin: Normal color, no rash, no lesions. HEENT: EOM, pupils equal, round and reactive. Cardiovascular: irregularly irregular, normal S1 & S2, no rubs, murmurs or ga llops. Lungs: Decreased breath sounds plus scattered b/l wheezes, no crackles. Abdomen: Soft, non-tender, no rigidity. Extremities: No deformity, no edema or tenderness, no joint swelling or clubbing . Neurological: Normal cognition and motor skills. Rest of the physical exam is non contributory - Assessment and Plan (1) COPD exacerbation Current Visit: Yes Status: Acute Assessment and Plan: Respiratory status improved. Blood cx negative, urine for legionella negative. Resp panel is positive for enterovirus/Rhino virus, dc IV abx. Change IV steroid to oral. Plan to dc in am. (2) Hypertension Current Visit: No Status: Chronic Assessment and Plan: patient is on metoprolol 25mg/PO BID. BP well controlled currently. (3) Thrombocytopenia Current Visit: Yes Status: Chronic Assessment and Plan: Stable and at baseline. (4) HLD (hyperlipidemia) Current Visit: Yes Status: Chronic Assessment and Plan: Continue simvastatin 40 mg by mouth at bedtime. (5) Atrial fibrillation Current Visit: Yes Status: Chronic Assessment and Plan: Status post pacemaker, rate controlled on metoprolol. aspirin 81mg added for secondary stroke prevention. (6) DVT prophylaxis Current Visit: No Status: Chronic Assessment and Plan: started on heparin SubQ - Time Spent with Patient Total time spent is greater than 50% in coordination of care (as documented) at patient's floor/unit and/or counseling patient: Greater than 35 minutes Plan of Care Discussed with: patient Internal Medicine: Result - Labs CBC & Chem 7: 04/21/19 03:14 01/06/19 04:08 Labs: BMP 01/06/19 04:08 Sodium 132 L Potassium 4.1 Chloride 102 Carbon Dioxide 25 BUN 24 H Creatinine 0.64 L Glucose 132 H Calcium 8.8 - ABG Interpretation ABG results: PT/INR, D-dimer PT 12.1 Seconds (9.4-12.1) 01/04/19 Unknown D-Dimer < 215 ng/mLFEU (0-500) 01/04/19 16:15 Consult Discharge Plan - Plan Referrals: Quin Palomares, [employer] TR[employer] DRIVER [Primary Care Provider] - (2) Hypertension Qualifiers: Hypertension type: essential hypertension Qualified Code(s): I10 - Essential (primary) hypertension (4) HLD (hyperlipidemia) Qualifiers: Hyperlipidemia type: unspecified Qualified Code(s): E78.5 - Hyperlipidemia, unspecified (5) Atrial fibrillation Qualifiers: Atrial fibrillation type: chronic Qualified Code(s): I48.2 - Chronic atrial fibrillation
[2019-01-06] MEDS: Aspirin Enteric Coated 81 MG Tablet PO SCH (09:45)
[2019-01-06] MEDS: predniSONE 20 MG TABLET PO SCH (09:45)
[2019-01-06] MEDS: Levofloxacin 750 MG/150 ML 750 MG/150 ML BAG IVPB SCH (22:41)
[2019-01-06] MEDS: methylPREDNISolone 125 MG/2 ML VIAL IVP SCH (22:41)
[2019-01-07] MEDS: Ipratropium/Albuterol Neb 3 ML IH SCH ×4 (00:01→11:05)
[2019-01-07] MEDS: *HR* Heparin 5,000 UNIT/ML VIAL SQ SCH (04:21)
[2019-01-07 05:06] LABS: Eosinophils % 0.1 %; Hemoglobin 12.7 g/dL (12.9-16.9)
[2019-01-07 05:08] LABS: Basophils % 0.1 %; Hematocrit 37.5 % (37.5-50.1); Immature Granulocytes % 0.3 % (0-4); Immature Platelets 16.2 % (1.1-6.1); Mean Corpuscular HGB Conc 33.9 g/dL (31.6-35.5); Mean Corpuscular Hemoglobin 30.8 pg (28.0-33.3); Mean Corpuscular Volume 90.8 fL (83.0-100.0); Mean Platelet Volume 12.7 fL (9.4-12.4); Monocytes # 0.7 K/mcL (0.0-1.3); Monocytes % 9.5 %; Red Blood Count 4.13 M/mcL (4.19-5.50); Red Cell Distribution Width 13.5 % (11.5-14.5)
[2019-01-07 05:13] LABS: Neutrophils # 5.2 K/mcL (1.6-8.9); Platelet Count 68 K/mcL (140-400)
[2019-01-07 05:25] LABS: BUN/Creatinine Ratio 30 (6-26); Blood Urea Nitrogen 21 mg/dL (8-23); Calcium 8.2 mg/dL (8.6-10.3); Carbon Dioxide 26 mEq/L (23-29); Chloride 100 mEq/L (98-107); Glucose 88 mg/dL (70-105); Osmolality,Calculated 282 (280-300); Potassium 3.9 mEq/L (3.5-5.1); Sodium 135 mEq/L (136-145); eGFR For Non-African Americans > 60 (> 60)
[2019-01-07 07:59] VITALS: BP 144/43
[2019-01-07] MEDS: Budesonide/Formoterol 160/4.5 1 PUFF INH IH SCH (08:04)
[2019-01-07] MEDS: predniSONE 20 MG TABLET PO SCH (08:12)
[2019-01-07] MEDS: Aspirin Enteric Coated 81 MG Tablet PO SCH (08:12)
[2019-01-07] MEDS ORDERED: Fluticasone Propionate Nasal 50 MCG/SPRAY BOTTLE NS SCH (09:15)
--- NOTE | 2019-01-07 09:15 | Discharge Summary ---
- NOTES TO OUTPATIENT PROVIDER Notes to Outpatient Provider: f/u with PCP within a week. Orders not resulted at time of discharge: Pending orders 01/04/19 13:48 Culture,Blood [BC] Stat Date of Encounter: 01/07/19 Time of Encounter: 09:09 - Discharge Diagnosis (1) COPD exacerbation Priority: Primary Status: Acute (2) Hypertension Priority: Secondary Status: Chronic Qualifiers: Hypertension type: essential hypertension Qualified Code(s): I10 - Essential (primary) hypertension (3) Thrombocytopenia Priority: Secondary Status: Chronic (4) HLD (hyperlipidemia) Priority: Secondary Status: Chronic Qualifiers: Hyperlipidemia type: unspecified Qualified Code(s): E78.5 - Hyperlipidemia, unspecified (5) Atrial fibrillation Priority: Secondary Status: Chronic Qualifiers: Atrial fibrillation type: chronic Qualified Code(s): I48.2 - Chronic atrial fibrillation (6) DVT prophylaxis Priority: Primary Status: Chronic Hospital course: Mr. Angulo is a 68 year old male PMH of lung CA s/p left lower lobe lobectomy about 40 years ago, colon CA s/p resection in 2009, COPD, HTN, A.fib and COPD. Patient presented to the ED due to shortness of breath. He reports he has been feeling short of breath for about a week which he be lieves is because he has been smoking more for the past week due to stress. Reports on Sunday he went to the ED at [facility] in [place] due to shortness of breath, report he got two shots of some medication and his shortness of breath resolved and he was discharged home. States that last night at around 10pmg when he was going to bed he started feeling very short of breath, reports he tried some nebs and inhalers without relief of his symptoms and decided to come to the ED today. Denies chest pain, nausea, vomiting. Reports productive cough with increased clear sputum production. denies fever/chills or sick contacts. Patient symptoms were consistent with COPD exacerbation, he was treated with IV steroids, bronchodilators, and cough suppressants. After 3 days of treatment, patient's symptoms have significantly improved. He has been ambulating in the room and hallway without shortness of breath. IV steroids have downgraded to oral on his own. Patient is discharged home today, was instructed to continue to take tapering dose of prednisone, continue to use bronchodilators as ordered, and a follow-up with PCP within a week. Discharge discussed with: patient Time spent discussing smoking cessation with patient: more than 10 minutes - Time Spent with Patient Total time spent providing and/or coordinating discharge services: Time spent: Greater than 30 minutes - Discharge Medications Prescriptions: New GuaiFENesin ER [Mucinex] 600 mg PO BID #12 tbbp.12hr predniSONE [PredniSONE] 40 mg PO DAILY #11 tablet Continue Pravastatin Sodium [Pravachol] 40 mg PO HS [place]-3/Dha/Epa/Fish Oil [Fish Oil 1,000 mg Softgel] 1 each PO DAILY Metoprolol [Lopressor] 25 mg PO BID Acetaminophen [Non-Aspirin] 650 mg PO HS PRN PRN Reason: Mild Pain Albuterol Neb [Proventil Neb] 2.5 mg IH Q4HR PRN PRN Reason: sob Budesonide/Formoterol 160/4.5 [Symbicort 160/4.5] 2 puff IH BIDR Fluticasone Propionate Nasal [Flonase] 1 spr NS DAILY PRN PRN Reason: Congestion Cyanocobalamin (B-12) [Vitamin B12] 1,000 mcg IM Q1M #10 mls Home Medications: Metoprolol [Lopressor] 25 mg PO BID 12/20/15 [History] [place]-3/Dha/Epa/Fish Oil [Fish Oil 1,000 mg Softgel] 1 each PO DAILY 12/20/15 [History] Pravastatin Sodium [Pravachol] 40 mg PO HS 12/20/15 [History] Acetaminophen [Non-Aspirin] 650 mg PO HS PRN 10/17/17 [History] Albuterol Neb [Proventil Neb] 2.5 mg IH Q4HR PRN 10/17/17 [History] Budesonide/Formoterol 160/4.5 [Symbicort 160/4.5] 2 puff IH BIDR 12/30/17 [History] Fluticasone Propionate Nasal [Flonase] 1 spr NS DAILY PRN 12/30/17 [History] Cyanocobalamin (B-12) [Vitamin B12] 1,000 mcg IM Q1M #10 mls 11/29/18 [Rx] GuaiFENesin ER [Mucinex] 600 mg PO BID #12 tbbp.12hr 01/07/19 [Rx] predniSONE [PredniSONE] 40 mg PO DAILY #11 tablet 01/07/19 [Rx] Allergies/Adverse Reactions: Allergy/AdvReac Type Severity Reaction Status Date / Time No Known Allergies Allergy Verified 01/05/19 11:01 Date of admission: 01/06/19 12:53 Primary care physician: Quin Palomares CNP Consults: 01/07/19 09:00 Consult to Nurse Navigator [CONS] Routine Comment: COPD Anticipated date of discharge: 01/07/19 - Constitutional Vitals: Temp Pulse Resp BP Pulse Ox 98.1 F 84 16 144/43 91 01/07/19 07:58 01/07/19 07:58 01/07/19 07:58 01/07/19 07:58 01/07/19 07:58 General appearance: Present: A&O X 3 Exam: Vital: Reviewed General: Alert and oriented x4. in mild due to shortness of breath Skin: Normal color, no rash, no lesions. HEENT: EOM, pupils equal, round and reactive. Cardiovascular: irregularly irregular, normal S1 & S2, no rubs, murmurs or gallops. Lungs: Decreased breath sounds plus scattered b/l wheezes, no crackles. Abdomen: Soft, non-tender, no rigidity. Extremities: No deformity, no edema or tenderness, no joint swelling or clubbing. Neurological: Normal cognition and motor skills. Rest of the physical exam is non contributory - Patient Status Disposition: Home, Self-Care Condition: Good Functional capacity at discharge: independent ambulation Overall status at discharge: patient is progressing back to baseline - Discharge Instructions Follow Up With: Quin Palomares CNP [Primary Care Provider] - - Diet and Activity Activity: increase activity as tolerated Diet: advance to your usual diet
== END 2019-01-07 11:29 | disposition home or self-care (01) | DRG 192 ==
LOC: 3BNU 13:19 → EMEROOARM 13:19 → 3BNU 17:11
PROVIDERS: ADMIT Internal Medicine; ATTEND Student in an Organized Health Care Education/Training Program